=== PATIENT | male | born 1960 | race Caucasian/White ===

== ENCOUNTER 2016-08-03 16:55 | Inpatient (IN) | payer OTHER ==
[2016-08-03] MEDS ORDERED: Zofran 4 MG/2 ML VIAL IV STA (17:14)
[2016-08-03] MEDS ORDERED: TYLENOL 325 MG PO STA (17:14)
--- NOTE | 2016-08-03 17:18 | ERPHSYRPT ---
- History of Present Illness Time Seen by Provider: 08/03/16 17:10 Source: patient Physician History: CC: dizzy Hx: 56 y/o male patient of Dr Baker. He felt poorly today with nausea, dizziness, mild cough, myalgias. No known fever. Had some headache this AM. No chest or abd pain. He has chronic incontinence. Severity: moderate Allergies/Adverse Reactions: No Known Drug Allergies Allergy (Verified 08/03/16 17:25) Home Medications: Pantoprazole Sodium [[id number]] 20 mg PO DAILY 09/23/14 [History] Insulin Aspart [NovoLOG Insulin] 18 unit SQ TID 12/04/15 [History] Insulin Glargine [Lantus Insulin] 60 unit SQ DAILY 12/04/15 [History] Hx Tetanus, Diphtheria Vaccination/Date Given: (unknown) Hx Influenza Vaccination/Date Given: Yes Hx Pneumococcal Vaccination/Date Given: Yes (2014) - Review of Systems Constitutional: Fatigue, Malaise, No Fever, No Chills Eyes: No Symptoms Ears, Nose, & Throat: No Throat Pain Respiratory: Cough Abdominal/Gastrointestinal: Nausea, No Abdominal Pain, No Vomiting Genitourinary Symptoms: Incontinence (chronic), No Dysuria Skin: No Rash Neurological: No Headache All Other Systems: Reviewed and Negative - Past Medical History Pertinent Past Medical History: Yes Neurological History: Peripheral Neuropathy ENT History: Cataracts Cardiac History: Hypertension Respiratory History: No Pertinent History Endocrine Medical History: Diabetes Type II, Other Musculoskeletal History: No Pertinent History GI Medical History: GERD History: No Pertinent History Psycho-Social History: No Pertinent History Male Reproductive Disorders: No Pertinent History Other Medical History: R mid-tarsal amputation 2014 - Past Surgical History Past Surgical History: Yes Neuro Surgical History: No Pertinent History Cardiac: No Pertinent History Respiratory: No Pertinent History Gastrointestinal: Cholecystectomy Genitourinary: No Pertinent History Musculoskeletal: No Pertinent History Male Surgical History: No Pertinent History Other Surgical History: Right toes amputation - Social History Smoking Status: Never smoker Exposure to second hand smoke: No Drug Use: none Patient Lives Alone: No - Nursing Vital Signs Nursing Vital Signs: Initial Vital Signs Temperature 102.6 F Temperature Source Rectal Pulse Rate 106 Respiratory Rate 20 Blood Pressure [] 152/79 Pain Intensity 0 - Physical Exam General Appearance: alert, other (frail elderly appearing man) Eye Exam: PERRL/EOMI Ears, Nose, Throat Exam: moist mucous membranes Neck Exam: normal inspection, supple Respiratory Exam: normal breath sounds Cardiovascular Exam: regular rate/rhythm, tachycardia Gastrointestinal/Abdomen Exam: soft, No tenderness, No distention Extremity Exam: other (post amputation changes foot. Dry skin.) Neurologic Exam: alert, oriented x 3, cooperative, No motor deficits Skin Exam: warm, dry, pale - Course Nursing assessment & vital signs reviewed: Yes - Radiology Exams cxr X-ray Interpretation: Reviewed by me (mild perihilar infiltrates) Ordered Tests: Active Orders 24 hr Category Date Time Status Accucheck STAT Care 08/03/16 17:37 Active Pharmacy Delivery Driver STAT Care 08/03/16 17:39 Active Clean Catch Urine Specimen STAT Care 08/03/16 17:14 Active IV Insertion STAT Care 08/03/16 17:14 Active Orthostatic Vital Signs STAT Care 08/03/16 17:37 Active Pulse Oximetry (ED) STAT Care 08/03/16 17:14 Active Rectal Temperature STAT Care 08/03/16 17:14 Active CHEST 1 VIEW (PORTABLE) Stat Exams 08/03/16 17:15 Taken BLOOD CULTURE Stat Lab 08/03/16 18:59 Received CBC W DIFF Stat Lab 08/03/16 17:22 Completed CMP Stat Lab 08/03/16 17:22 Completed CULTURE,URINE Stat Lab 08/03/16 17:45 Received Lactic Acid Urgent Lab 08/03/16 17:14 Completed Manual Differential NC Stat Lab 08/03/16 17:22 Completed UA W/ MICROSCOPIC Stat Lab 08/03/16 17:43 Completed Medication Summary Discontinued Medications Generic Name Dose Route Start Last Admin Trade Name Matheusq PRN Reason Stop Dose Admin Acetaminophen 650 mg 08/03/16 17:14 08/03/16 17:35 Tylenol 325 Mg PO 08/03/16 17:15 650 mg STAT STA Administration Acetaminophen Confirm 08/03/16 17:34 Tylenol 325 Mg Administered 08/03/16 17:35 Dose 650 mg .ROUTE .STK-MED ONE Sodium Chloride 500 mls @ 999 mls/hr 08/03/16 17:14 08/03/16 17:36 Sodium Chloride 0.9% 1000 Ml IV 08/03/16 17:44 999 mls/hr .Q31M STA Administration Sodium Chloride Confirm 08/03/16 17:34 Sodium Chloride 0.9% 1000 Ml Administered 08/03/16 17:35 Dose 1,000 mls @ ud .ROUTE .[facility] ONE Ondansetron HCl 4 mg 08/03/16 17:14 02 17:35 Zofran 4 Mg/2 Ml Vial IV 08/03/16 17:15 4 mg STAT STA Administration Ondansetron HCl Confirm 08/03/16 17:34 Zofran 4 Mg/2 Ml Vial Administered 08/03/16 17:35 Dose 4 mg .ROUTE .[facility] ONE Lab/Rad Data: Laboratory Result Diagrams 08/03/16 17:22 08/03/16 17:22 Laboratory Results 08/03/16 08/03/16 08/03/16 Range/Units 17:43 17:22 17:22 WBC (4.0-10.5) K/mm3 RBC (4.1-5.6) M/mm3 Hgb (12.5-18.0) gm/dl Hct (42-50) % MCV (78-100) fl MCH (26-32) pg MCHC (32-36) g/dl RDW (11.5-14.0) % Plt Count (150-450) K/mm3 MPV (6-9.5) fl Segmented Neutrophils (36.-66.) % Band Neutrophils (0.0-2.0) % Lymphocytes (Manual) (24-44) % Monocytes (Manual) (0.0-12.0) % Differential Comment Platelet Estimate (NORMAL) Sodium 135 L (136-145) mEq/L Potassium 4.0 (3.5-5.1) mEq/L Chloride 99 (98-107) mEq/L Carbon Dioxide 25.7 (21-32) mEq/L Anion Gap 14.5 (5-15) MEQ/L BUN 22 H (9-20) mg/dL Creatinine 1.09 (0.55-1.30) mg/dl Estimated GFR > 60 ML/MIN Glucose 297 H (70-110) MG/DL Lactic Acid (0.4-2.0) Calcium 9.0 (8.5-10.1) mg/dL Total Bilirubin 0.9 (0.2-1.0) mg/dL AST 23 (15-37) U/L ALT 58 (12-78) U/L Alkaline Phosphatase 81 (46-116) U/L Serum Total Protein 7.9 (6.4-8.2) gm/dL Albumin 4.1 (3.4-5.0) g/dL Ur Collection Type CLEAN CATCH Urine Color YELLOW (YELLOW) Urine Appearance CLEAR (CLEAR) Urine pH 5.0 (5-6) Ur Specific Chapman >=1.030 (1.005-1.025) Urine Protein 100 (Negative) Urine Glucose (UA) >=1000 (NEGATIVE) mg/dL Urine Ketones MODERATE-40 (NEGATIVE) Urine Nitrite NEGATIVE (NEGATIVE) Urine Bilirubin SMALL (NEGATIVE) Urine Urobilinogen 0.2 (0-1) mg/dL Urine WBC (Auto) NEGATIVE (NEGATIVE) Urine RBC (Auto) NEGATIVE (0-5) Rd/ul Urine Microscopic RBC 0-2 (0-2) /HPF Urine Microscopic WBC 0-2 (0-5) /HPF Ur Epithelial Cells MODERATE (FEW) /HPF Urine Bacteria FEW (NEGATIVE) /HPF Urine Mucus MANY (NEGATIVE) /HPF Resp Infection Panel NEGATIVE (Negative) Specimen Received 08/03/16 174 08/03/16 08/03/16 Range/Units 17:22 17:14 WBC 9.6 (4.0-10.5) K/mm3 RBC 5.80 H (4.1-5.6) M/mm3 Hgb 16.7 (12.5-18.0) gm/dl Hct 48.6 (42-50) % MCV 83.8 (78-100) fl MCH 28.7 (26-32) pg MCHC 34.4 (32-36) g/dl RDW 13.6 (11.5-14.0) % Plt Count 183 (150-450) K/mm3 MPV 9.9 H (6-9.5) fl Segmented Neutrophils 95 H (36.-66.) % Band Neutrophils 1 (0.0-2.0) % Lymphocytes (Manual) 3 L (24-44) % Monocytes (Manual) 1 (0.0-12.0) % Differential Comment NORMAL Platelet Estimate NORMAL (NORMAL) Sodium (136-145) mEq/L Potassium (3.5-5.1) mEq/L Chloride (98-107) mEq/L Carbon Dioxide (21-32) mEq/L Anion Gap (5-15) MEQ/L BUN (9-20) mg/dL Creatinine (0.55-1.30) mg/dl Estimated GFR ML/MIN Glucose (70-110) MG/DL Lactic Acid 2.3 H (0.4-2.0) Calcium (8.5-10.1) mg/dL Total Bilirubin (0.2-1.0) mg/dL AST (15-37) U/L ALT (12-78) U/L Alkaline Phosphatase (46-116) U/L Serum Total Protein (6.4-8.2) gm/dL Albumin (3.4-5.0) g/dL Ur Collection Type Urine Color (YELLOW) Urine Appearance (CLEAR) Urine pH (5-6) Ur Specific Chapman (1.005-1.025) Urine Protein (Negative) Urine Glucose (UA) (NEGATIVE) mg/dL Urine Ketones (NEGATIVE) Urine Nitrite (NEGATIVE) Urine Bilirubin (NEGATIVE) Urine Urobilinogen (0-1) mg/dL Urine WBC (Auto) (NEGATIVE) Urine RBC (Auto) (0-5) Rd/ul Urine Microscopic RBC (0-2) /HPF Urine Microscopic WBC (0-5) /HPF Ur Epithelial Cells (FEW) /HPF Urine Bacteria (NEGATIVE) /HPF Urine Mucus (NEGATIVE) /HPF Resp Infection Panel (Negative) Specimen Received - Progress Progress Note: 08/03/16 17:18 Likely influenza by symptoms. 08/03/16 19:07 He is a little better. Too weak to go home. HR some better. Likely viral syndrome with fever. Cultures sent. Called Dr Miller Baker and will place in obs for IVF. Counseled pt/family regarding: lab results, diagnosis, need for follow-up, rad results - Departure Time of Disposition: 19:07 Departure Disposition: Observation Clinical Impression: Type II diabetes mellitus, uncontrolled, Nausea & vomiting, Fever Condition: Fair Critical Care Time: No Referrals: GIAN BAKER [Primary Care Provider] -
[2016-08-03 17:28] LABS: Mean Cell Volume 83.8 fl (78-100); Mean Platelet Volume 9.9 fl (6-9.5); Platelet Count 183 K/mm3 (150-450); Red Cell Distribution Width 13.6 % (11.5-14.0); White Blood Count 9.6 K/mm3 (4.0-10.5)
[2016-08-03] MEDS ORDERED: TYLENOL 325 MG ONE (17:34)
[2016-08-03] MEDS ORDERED: Sodium Chloride 0.9% 1000 ML 1,000 ML ONE (17:34)
[2016-08-03] MEDS ORDERED: Zofran 4 MG/2 ML VIAL ONE (17:34)
[2016-08-03 17:36] LABS: Mean Corpuscular Hemoglobin 28.7 pg (26-32)
[2016-08-03 17:56] LABS: ALBUMIN 4.1 g/dL (3.4-5.0); ALKALINE PHOSPHATASE 81 U/L (46-116); ANION GAP 14.5 MEQ/L (5-15); BILIRUBIN,TOTAL 0.9 mg/dL (0.2-1.0); BLOOD UREA NITROGEN 22 mg/dL (9-20); CHLORIDE 99 mEq/L (98-107); Carbon Dioxide 25.7 mEq/L (21-32); Glucose 297 MG/DL (70-110); SGOT/AST 23 U/L (15-37); SGPT/ALT 58 U/L (12-78); SODIUM 135 mEq/L (136-145); Total Protein 7.9 gm/dL (6.4-8.2)
[2016-08-03 18:22] LABS: BAND 1 % (0.0-2.0); Platelet Estimate NORMAL (NORMAL); Total Cells Counted 100
[2016-08-03 18:28] LABS: Bacteria FEW /HPF (NEGATIVE); COMPLETE URINE MICROSCOPIC? YES; Collection Type CLEAN CATCH; Epithelial Cells MODERATE /HPF (FEW); Mucus MANY /HPF (NEGATIVE); WBC 0-2 /HPF (0-5)
[2016-08-03] MEDS ORDERED: NovoLOG Insulin SQ ONE (19:06)
[2016-08-03] MEDS ORDERED: NovoLOG Insulin ONE (19:13)
--- NOTE | 2016-08-03 20:40 | XRAY ---
Indication: Cough. Comparison: May 13, 2016. Portable chest clear. Heart is not enlarged. Bony thorax intact again with mild degenerative changes. No new/acute findings. Impression: Nonacute chest.
[2016-08-03] MEDS: Sodium Chloride 0.9% W/ 20 mEq KCl/LITER 1,000 ML IV SCH (21:23)
[2016-08-04] MEDS: TYLENOL 325 MG PO PRN (03:21)
[2016-08-04] MEDS: Zofran 4 MG/2 ML VIAL IV PRN (03:21)
[2016-08-04 06:06] LABS: Mean Cell Volume 85.6 fl (78-100); Mean Corpuscular Hemoglobin 28.5 pg (26-32); Mean Platelet Volume 9.8 fl (6-9.5); Platelet Count 160 K/mm3 (150-450); Red Blood Count 5.01 M/mm3 (4.1-5.6); Red Cell Distribution Width 13.6 % (11.5-14.0)
[2016-08-04 06:12] LABS: ANION GAP 11.2 MEQ/L (5-15); BLOOD UREA NITROGEN 20 mg/dL (9-20); CHLORIDE 105 mEq/L (98-107); Carbon Dioxide 26.8 mEq/L (21-32); Glucose 200 MG/DL (70-110); Potassium 4.1 mEq/L (3.5-5.1); SODIUM 139 mEq/L (136-145)
[2016-08-04] MEDS: Sodium Chloride 0.9% W/ 20 mEq KCl/LITER 1,000 ML IV SCH ×2 (06:58→19:26)
--- NOTE | 2016-08-04 09:14 | PCM.SSS ---
History of Present Illness - Chief Complaint Chief Complaint: fever History of Present Illness: is a 56 year old male who presented to the ER yesterday with dizziness, nausea and fever, there was concern for flu but swab was negative. His symptoms have all resolved and he has been afebrile overnight. He is tolerating clear liquids and is complaint-free today. - Review of Systems Constitutional: Fever, Chills Cardiac: No Chest Pain, No Edema, No Syncope Abdominal/Gastrointestinal: Nausea, No Abdominal Pain, No Vomiting, No Diarrhea Neurological: Dizziness, No Focal Weakness, No Headache, No Seizure All Other Systems: Reviewed and Negative Medications & Allergies Home Medications: Home Medication List Pantoprazole Sodium [[id number]] 20 mg PO DAILY 09/23/14 [History Confirmed 05/09] Insulin Aspart [NovoLOG Insulin] 18 unit SQ TIDWMEALS 12/04/15 [History Confirmed 08/03/16] Insulin Glargine [Lantus Insulin] 60 unit SQ HS 12/04/15 [History Confirmed 08/03/16] Allergies/Adverse Reactions: Allergies Allergy/AdvReac Type Severity Reaction Status Date / Time No Known Drug Allergies Allergy Verified 08/03/16 17:25 - Past Medical History Past Medical History: Yes Neurological History: Peripheral Neuropathy ENT History: Cataracts Cardiac History: Hypertension Respiratory History: No Pertinent History Endocrine Medical History: Diabetes Type II, Other Musculoskelatal History: No Pertinent History GI Medical History: GERD History: No Pertinent History Pyscho-Social History: No Pertinent History Male Reproductive Disorders: No Pertinent History Comment: R mid-tarsal amputation 2014 - Past Surgical History Past Surgical History: Yes Neuro Surgical History: No Pertinent History Cardiac History: No Pertinent History Respiratory Surgery: No Pertinent History GI Surgical History: Cholecystectomy Genitourinary Surgical Hx: No Pertinent History Musculskeletal Surgical Hx: No Pertinent History Male Surgical History: No Pertinent History Other Surgical History: Right toes amputation - Social History Smoking Status: Never smoker Exposure to second hand smoke: No Alcohol: None Drug Use: none - Physical Exam Vital Signs: Vital Signs - 24 hr Temp Pulse Resp BP Pulse Ox 08/04/16 07:28 98.4 F 83 18 111/64 94 L 08/04/16 04:00 99 F 96 H 16 126/72 94 L 08/04/16 00:00 98.6 F 88 16 117/70 96 08/03/16 20:20 98.6 F 97 H 16 114/69 92 L 08/03/16 18:54 106 H 20 152/79 08/03/16 18:09 114 H 20 135/89 08/03/16 17:35 102.6 F 08/03/16 17:32 97 08/03/16 17:29 102.6 F 08/03/16 17:00 111 H 20 107/77 General Appearance: no apparent distress, alert Eye Exam: PERRL/EOMI, eyes nml inspection Ears, Nose, Throat Exam: normal ENT inspection, TMs normal, pharynx normal, moist mucous membranes Neck Exam: normal inspection, non-tender, supple, full range of motion Respiratory Exam: normal breath sounds, lungs clear, No respiratory distress Cardiovascular Exam: regular rate/rhythm, normal heart sounds, normal peripheral pulses Gastrointestinal/Abdomen Exam: soft, normal bowel sounds, No tenderness, No mass Extremity Exam: normal inspection, normal range of motion, pelvis stable Skin Exam: normal color, warm, dry, No rash Results - Labs Lab/Micro Results: Accuchecks Date 08/03/16 Accucheck Value: 200 Lab Results-Last 24 Hours 08/04/16 08/04/16 Range/Units 05:10 05:10 WBC 6.0 (4.0-10.5) K/mm3 RBC 5.01 (4.1-5.6) M/mm3 Hgb 14.3 (12.5-18.0) gm/dl Hct 42.9 (42-50) % MCV 85.6 (78-100) fl MCH 28.5 (26-32) pg MCHC 33.3 (32-36) g/dl RDW 13.6 (11.5-14.0) % Plt Count 160 (150-450) K/mm3 MPV 9.8 H (6-9.5) fl Sodium 139 (136-145) mEq/L Potassium 4.1 (3.5-5.1) mEq/L Chloride 105 (98-107) mEq/L Carbon Dioxide 26.8 (21-32) mEq/L Anion Gap 11.2 (5-15) MEQ/L BUN 20 (9-20) mg/dL Creatinine 0.89 (0.55-1.30) mg/dl Estimated GFR > 60 ML/MIN Glucose 200 H (70-110) MG/DL Calcium 7.9 L (8.5-10.1) mg/dL Accuchecks Date 08/03/16 Accucheck Value: 200 Assessment/Plan (1) Fever Current Visit: Yes Status: Acute Code(s): R50.9 - FEVER, UNSPECIFIED (2) Nausea & vomiting Current Visit: Yes Status: Acute Assessment & Plan: symptoms have resolved at this time, appears to have been a viral illness. home today Code(s): R11.2 - NAUSEA WITH VOMITING, UNSPECIFIED (3) Type II diabetes mellitus, uncontrolled Current Visit: Yes Status: Acute Qualifiers: Hospital Summary - Vitals & Intake/Output Vital Signs: Vital Signs Temperature 98.4 F 08/04/16 07:28 Pulse Rate 83 08/04/16 07:28 Respiratory Rate 18 08/04/16 07:28 Blood Pressure 111/64 08/04/16 07:28 O2 Sat by Pulse Oximetry 94 L 08/04/16 07:28 Intake & Output: Intake & Output 08/01/16 08/02/16 08/03/16 08/04/16 11:59 11:59 11:59 11:59 Intake Total 953 Balance 953 - Lab Result Diagrams: 08/04/16 05:10 08/04/16 05:10 Lab Results-Last 24 Hrs: Accuchecks Date 08/03/16 Accucheck Value: 200 Lab Results-Last 24 Hours 08/04/16 08/04/16 Range/Units 05:10 05:10 WBC 6.0 (4.0-10.5) K/mm3 RBC 5.01 (4.1-5.6) M/mm3 Hgb 14.3 (12.5-18.0) gm/dl Hct 42.9 (42-50) % MCV 85.6 (78-100) fl MCH 28.5 (26-32) pg MCHC 33.3 (32-36) g/dl RDW 13.6 (11.5-14.0) % Plt Count 160 (150-450) K/mm3 MPV 9.8 H (6-9.5) fl Sodium 139 (136-145) mEq/L Potassium 4.1 (3.5-5.1) mEq/L Chloride 105 (98-107) mEq/L Carbon Dioxide 26.8 (21-32) mEq/L Anion Gap 11.2 (5-15) MEQ/L BUN 20 (9-20) mg/dL Creatinine 0.89 (0.55-1.30) mg/dl Estimated GFR > 60 ML/MIN Glucose 200 H (70-110) MG/DL Calcium 7.9 L (8.5-10.1) mg/dL Micro Results-Entire Visit: Accuchecks Date 08/03/16 Accucheck Value: 200 - Procedures and Test Procedures and Tests throughout Hospitalization: Therapy Orders & Screens 08/04/16 09:00 PT Screen per Nursing Assess ONCE Comment: Protocol Order Physician Instructions: Greater than 3 points order PT Admission Screenin Reason For Exam: Triggered on Admission Diagnosis: fever Open Wound/Cellutlitis/Pressure Ulcers: Yes: diabetic ulcer, Rt foot Acute Fx/ORIF/Change in wt bearing status: No Severe MUSCULOSKELETAL pain: No ADL Dysfunction: No Acute CVA w/Hemiparesis/Hemiplegia: No Decreased Functional Mobility/Strength: No Sprain/Strain: No Acute Post-op Mobility Dysfunction: No Total Points: 5 08/05/16 09:00 OT Screen per Nursing Assess ONCE Comment: Protocol Order Physician Instructions: Greater than 3 points order OT Admission Screening Reason For Exam: Triggered on Admission Diagnosis: fever Open Wound/Cellutlitis/Pressure Ulcers: Yes: diabetic ulcer, Rt foot Acute Fx/ORIF/Change in wt bearing status: No Severe MUSCULOSKELETAL pain: No ADL Dysfunction: No Acute CVA w/Hemiparesis/Hemiplegia: No Decreased Functional Mobility/Strength: No Sprain/Strain: No Acute Post-op Mobility Dysfunction: No Total Points: 5 - Discharge Disposition: Home, Self-Care Condition: Fair Prescriptions: Continue Pantoprazole Sodium [[id number]] 20 mg PO DAILY Insulin Glargine [Lantus Insulin] 60 unit SQ HS Insulin Aspart [NovoLOG Insulin] 18 unit SQ TIDWMEALS Follow up with: GIAN GREGORIO [Primary Care Provider] - Forms: Patient Portal Information
[2016-08-04 09:36] LABS: Total Cells Counted 100
[2016-08-04 09:37] LABS: Platelet Estimate NORMAL (NORMAL)
[2016-08-04] MEDS ORDERED: PNEUMOVAX 23 IM ONE (10:00)
[2016-08-04] MEDS: ROCEPHIN 1 Gm-D5w 50 ml Bag** 50 ML IV SCH (10:35)
[2016-08-04] MEDS: Protonix 20MG Tablet PO SCH (10:36)
[2016-08-04] MEDS: VANCOCIN 1 GM VIAL*** 1 GM in Sodium Chloride 0.9% 250 ML 250 ML IV SCH ×2 (11:26→21:56)
[2016-08-04] MEDS: NovoLOG Insulin SQ SCH ×2 (13:09→16:40)
[2016-08-04] MEDS: Lantus Insulin SQ SCH (21:57)
[2016-08-05] MEDS: TYLENOL 325 MG PO PRN (00:08)
[2016-08-05] MEDS: Zofran 4 MG/2 ML VIAL IV PRN (00:09)
[2016-08-05] MEDS: Sodium Chloride 0.9% W/ 20 mEq KCl/LITER 1,000 ML IV SCH ×2 (06:57→15:05)
[2016-08-05] MEDS: NovoLOG Insulin SQ SCH ×3 (07:44→16:47)
--- NOTE | 2016-08-05 08:49 | PCM.NOTE ---
Date and Time: 08/05/16 0844 Subjective Assessment: Pt is feeling much better, he did have 3 + Bld cx out of 3 bottles, but one is a gram variable tyo and may be contamination. On CLD and tolerating very well; hungry. - Review of Systems Constitutional: No Fever Respiratory: Cough (mild) Objective Exam General Appearance: no apparent distress Neurologic Exam: alert, oriented x 3, cooperative Skin Exam: normal color, warm, dry Respiratory Exam: normal breath sounds, lungs clear, No crackles/rales, No rhonchi, No wheezing Cardiovascular Exam: regular rate/rhythm, normal heart sounds Extremity Exam: other (RLE s/p remote amputation. distal plantar surface with approx 8 mm defect surrounded by pale firm tissue (approx 2 cm). no erythema. Evidence of small amount of drainage on dressing. nttp) OBJECTIVE DATA Vital Signs: Vital Signs - 24 hr Temp Pulse Resp BP Pulse Ox 08/05/16 07:19 98.5 F 70 18 113/65 96 08/05/16 04:00 98.2 F 78 17 120/73 97 08/05/16 00:00 99.5 F 95 H 16 140/81 96 08/04/16 20:00 97.8 F 92 H 16 125/74 95 08/04/16 16:00 99.5 F 93 H 18 126/67 95 08/04/16 12:00 98.3 F 83 18 141/74 95 Pain Assessment - Last Documented Pain Intensity 4 Pain Scale Used [facility] Intake and Output: Intake & Output 08/02/16 08/03/16 08/04/16 08/05/16 11:59 11:59 11:59 11:59 Intake Total 1493 3685 Balance 1493 3685 Lab Results: Accuchecks Date 08/05/16 Date 08/04/16 Time 07:30 Time 22:00 Accucheck Value: 78 Accucheck Value: 129 Accucheck Value: 101 Accucheck Value: 182 Lab Results-Last 24 Hours 08/04/16 08/04/16 Range/Units 05:10 05:10 WBC 6.0 (4.0-10.5) K/mm3 RBC 5.01 (4.1-5.6) M/mm3 Hgb 14.3 (12.5-18.0) gm/dl Hct 42.9 (42-50) % MCV 85.6 (78-100) fl MCH 28.5 (26-32) pg MCHC 33.3 (32-36) g/dl RDW 13.6 (11.5-14.0) % Plt Count 160 (150-450) K/mm3 MPV 9.8 H (6-9.5) fl Segmented Neutrophils 83 H (36.-66.) % Lymphocytes (Manual) 15 L (24-44) % Monocytes (Manual) 2 (0.0-12.0) % Differential Comment NORMAL Platelet Estimate NORMAL (NORMAL) Hemoglobin A1c 10.3 H (4.5-6.2) Assessment/Plan (1) Bacteremia Current Visit: Yes Status: Acute Assessment & Plan: cultures pending. I spoke with the lab, they will have a result on cx likely tomorrow afternoon. Rona on vanc and rocephin. Code(s): R78.81 - BACTEREMIA (2) Wound, open, foot Current Visit: Yes Status: Chronic Assessment & Plan: as above. PT to dress the foot today. He does see dr. House outpatient. Code(s): S91.309A - UNSPECIFIED OPEN WOUND, UNSPECIFIED FOOT, INITIAL ENCOUNTER (3) Type II diabetes mellitus, uncontrolled Current Visit: Yes Status: Chronic Qualifiers: Diabetes mellitus complication status: with skin complications Diabetes mellitus complication detail: with foot ulcer Assessment & Plan: AYESHA sanchez on CLD! Will continue to monitor as diet advances.
[2016-08-05] MEDS: VANCOCIN 1 GM VIAL*** 1 GM in Sodium Chloride 0.9% 250 ML 250 ML IV SCH ×2 (09:06→22:40)
[2016-08-05] MEDS: ROCEPHIN 1 Gm-D5w 50 ml Bag** 50 ML IV SCH (09:06)
[2016-08-05] MEDS: Protonix 20MG Tablet PO SCH (09:07)
[2016-08-05] MEDS: NovoLOG Insulin SQ PRN (16:48)
[2016-08-05] MEDS: Lantus Insulin SQ SCH (22:40)
[2016-08-06] MEDS: Sodium Chloride 0.9% W/ 20 mEq KCl/LITER 1,000 ML IV SCH ×2 (02:56→15:01)
[2016-08-06] MEDS: NovoLOG Insulin SQ SCH ×3 (07:45→17:02)
--- NOTE | 2016-08-06 08:46 | PCM.NOTE ---
Date and Time: 08/06/16 0844 Subjective Assessment: Pt feeling well, candace po well. His blood cx are positive for E. faecalis and Proteus vulgaris. - Review of Systems Constitutional: No Fever, No Chills Abdominal/Gastrointestinal: No Vomiting OBJECTIVE DATA Vital Signs: Vital Signs - 24 hr Temp Pulse Resp BP Pulse Ox 08/06/16 07:28 98.0 F 69 18 148/75 94 L 08/06/16 04:00 98.5 F 71 18 136/74 92 L 08/05/16 23:26 98.5 F 79 17 136/76 93 L 08/05/16 19:49 98.2 F 76 17 121/69 93 L 08/05/16 15:45 98.3 F 76 18 122/66 94 L 08/05/16 11:47 98.5 F 79 18 132/69 98 Pain Assessment - Last Documented Pain Intensity 4 Pain Scale Used [facility] Intake and Output: Intake & Output 08/03/16 08/04/16 08/05/16 08/06/16 11:59 11:59 11:59 11:59 Intake Total 1493 3685 1926 Balance 1493 3685 1926 Lab Results: Accuchecks Date 08/06/16 Date 08/05/16 Date 08/05/16 Date 08/05/16 Time 07:30 Time 22:00 Time 16:50 Time 11:46 Accucheck Value: 135 Accucheck Value: 136 Accucheck Value: 4 Accucheck Value: 50 Multi-Disciplinary Progress Notes: Multi-Disciplinary Progress Notes 08/05/16 11:26 Physical Therapy Note by Candice Martinez DIABETIC FOOT ULCER WOUND DRESSED AFTER PHYSICIAN OBSERVED WOUND STATUS. PATIENT TO RESUME OUTPT WOUND CARE PROGRAM FRIDAY A.M. TO D/C HOME TOMORROW. Initialized on 08/05/16 11:26 - END OF NOTE Assessment/Plan (1) Bacteremia Current Visit: Yes Status: Acute Assessment & Plan: With two organisms. E faecalis susceptible to vancomycin. Proteus susceptible to rocephin. Advised should stay here for IV abx for 5 d total (2d from today) . Code(s): R78.81 - BACTEREMIA (2) Wound, open, foot Current Visit: Yes Status: Chronic Assessment & Plan: PT dressing, thank you! Code(s): S91.309A - UNSPECIFIED OPEN WOUND, UNSPECIFIED FOOT, INITIAL ENCOUNTER (3) Type II diabetes mellitus, uncontrolled Current Visit: Yes Status: Chronic Qualifiers: Diabetes mellitus complication status: with skin complications Diabetes mellitus complication detail: with foot ulcer
[2016-08-06] MEDS ORDERED: TROUGH DRUG LEVELS IJ ONE (09:30)
[2016-08-06] MEDS: VANCOCIN 1 GM VIAL*** 1 GM in Sodium Chloride 0.9% 250 ML 250 ML IV SCH ×2 (09:31→21:39)
[2016-08-06] MEDS: ROCEPHIN 1 Gm-D5w 50 ml Bag** 50 ML IV SCH (09:31)
[2016-08-06] MEDS: Protonix 20MG Tablet PO SCH (09:31)
[2016-08-06] MEDS: TYLENOL 325 MG PO PRN (10:13)
[2016-08-06] MEDS: Lantus Insulin SQ SCH (21:39)
[2016-08-07] MEDS: Sodium Chloride 0.9% W/ 20 mEq KCl/LITER 1,000 ML IV SCH ×3 (05:32→18:48)
[2016-08-07] MEDS: NovoLOG Insulin SQ SCH ×3 (07:46→16:54)
[2016-08-07] MEDS: ROCEPHIN 1 Gm-D5w 50 ml Bag** 50 ML IV SCH (09:27)
[2016-08-07] MEDS: Protonix 20MG Tablet PO SCH (09:27)
--- NOTE | 2016-08-07 10:21 | PCM.NOTE ---
Date and Time: 08/07/16 1019 Subjective Assessment: Pt without complaints, tolerating po well. Went for a walk today. - Review of Systems Constitutional: No Fever Respiratory: No Cough Objective Exam General Appearance: no apparent distress Neurologic Exam: alert, oriented x 3, cooperative Skin Exam: normal color, warm, dry Respiratory Exam: normal breath sounds, lungs clear Cardiovascular Exam: regular rate/rhythm, normal heart sounds Gastrointestinal/Abdomen Exam: soft, normal bowel sounds, No tenderness Extremity Exam: other (foot wrapped) OBJECTIVE DATA Vital Signs: Vital Signs - 24 hr Temp Pulse Resp BP Pulse Ox 08/07/16 07:25 98.0 F 57 L 20 158/82 95 08/07/16 04:00 97.8 F 63 16 147/75 95 08/07/16 00:00 97.9 F 72 16 161/79 97 08/06/16 20:00 98.0 F 73 16 133/83 95 08/06/16 16:00 97.6 F 67 18 143/79 95 08/06/16 12:00 97.6 F 82 19 123/69 95 Pain Assessment - Last Documented Pain Intensity 0 Pain Scale Used 0-10 Pain Scale,FLACC Intake and Output: Intake & Output 08/04/16 08/05/16 08/06/16 08/07/16 11:59 11:59 11:59 11:59 Intake Total 2079 Balance 2079 Lab Results: Accuchecks Date 08/07/16 Date 08/06/16 Date 08/06/16 Time 07:30 Time 16:30 Time 11:20 Accucheck Value: 142 Accucheck Value: 72 Accucheck Value: 199 Accucheck Value: 102 Lab Results-Last 24 Hours 08/06/16 Range/Units 09:40 Vancomycin Trough 9.2 L (10-20) UG/ML Multi-Disciplinary Progress Notes: Multi-Disciplinary Progress Notes 08/06/16 13:22 Pharmacy Note by Greg Ware Vancomycin trough slightly low at 9.2. Will keep on same dose as this is well above the ABY of 2. Initialized on 08/06/16 13:22 - END OF NOTE Assessment/Plan (1) Bacteremia Current Visit: Yes Status: Acute Assessment & Plan: Plan is to d/c tomorrow on po meds. pt clinically doing great. Code(s): R78.81 - BACTEREMIA (2) Wound, open, foot Current Visit: Yes Status: Chronic Assessment & Plan: PT continues to debride and dress wound, thank you. Outpatient he is seeing Dr. House. Code(s): S91.309A - UNSPECIFIED OPEN WOUND, UNSPECIFIED FOOT, INITIAL ENCOUNTER (3) Type II diabetes mellitus, uncontrolled Current Visit: Yes Status: Chronic Qualifiers: Diabetes mellitus complication status: with skin complications Diabetes mellitus complication detail: with foot ulcer Assessment & Plan: stable.
[2016-08-07] MEDS: VANCOCIN 1 GM VIAL*** 1 GM in Sodium Chloride 0.9% 250 ML 250 ML IV SCH ×2 (10:50→22:25)
[2016-08-07] MEDS: Lantus Insulin SQ SCH (22:29)
[2016-08-07] MEDS: NovoLOG Insulin SQ PRN (22:29)
[2016-08-08 06:06] LABS: BASOPHIL % 0.5 % (0.0-0.4); Eosinophil % 3.2 % (0.00-5.0); Granulocytes % 56.9 % (36.0-66.0); Lymphocytes % 28.2 % (24.0-44.0); Mean Cell Volume 84.5 fl (78-100); Mean Platelet Volume 9.3 fl (6-9.5); Monocytes % 11.2 % (0.0-12.0); Platelet Count 201 K/mm3 (150-450); Red Blood Count 4.65 M/mm3 (4.1-5.6); Red Cell Distribution Width 13.7 % (11.5-14.0); White Blood Count 4.1 K/mm3 (4.0-10.5)
[2016-08-08 06:14] LABS: ANION GAP 11.3 MEQ/L (5-15); BLOOD UREA NITROGEN 9 mg/dL (9-20); CHLORIDE 106 mEq/L (98-107); Carbon Dioxide 26.7 mEq/L (21-32); Glucose 169 MG/DL (70-110); Potassium 4.4 mEq/L (3.5-5.1); SODIUM 140 mEq/L (136-145)
[2016-08-08 07:31] VITALS: BP 155/76; PULSE 66; O2SAT 96
[2016-08-08] MEDS: NovoLOG Insulin SQ SCH (07:41)
[2016-08-08] MEDS: ROCEPHIN 1 Gm-D5w 50 ml Bag** 50 ML IV SCH (07:41)
[2016-08-08] MEDS: VANCOCIN 1 GM VIAL*** 1 GM in Sodium Chloride 0.9% 250 ML 250 ML IV SCH (08:31)
[2016-08-08] MEDS: Protonix 20MG Tablet PO SCH (08:32)
--- NOTE | 2016-08-08 08:32 | PCM.DS ---
Discharge Summary Date of Admission: 08/06/16 07:48 Admitting Physician: DANIEL RANGEL Primary Care Provider: GIAN GREGORIO Allergies Allergies No Known Drug Allergies Allergy (Verified 08/03/16 17:25) Hospital Summary - Hospital Course Hospital Course: Has been having low BS into the 60s at times after being covered for meals with 18 units. He told the nurse this does sometimes happen to him at home as well. Otherwise no complaints, candace po well. Up and walking ok. - Vitals & Intake/Output Vital Signs: Vital Signs Temperature 98.7 F 08/08/16 07:31 Pulse Rate 66 08/08/16 07:31 Respiratory Rate 19 08/08/16 07:31 Blood Pressure 155/76 08/08/16 07:31 O2 Sat by Pulse Oximetry 96 08/08/16 07:31 Intake & Output: Intake & Output 08/05/16 08/06/16 08/07/16 08/08/16 11:59 11:59 11:59 11:59 Intake Total 2080 2811 Balance 2080 2811 - Lab Result Diagrams: 08/08/16 05:20 08/08/16 05:20 Lab Results-Last 24 Hrs: Accuchecks Date 08/07/15 Date 08/07/16 Date 08/07/16 Time 22:00 Time 16:30 Time 11:30 Accucheck Value: 211 Accucheck Value: 64 Lab Results-Last 24 Hours 08/08/16 08/08/16 Range/Units 05:20 05:20 WBC 4.1 (4.0-10.5) K/mm3 RBC 4.65 (4.1-5.6) M/mm3 Hgb 13.0 (12.5-18.0) gm/dl Hct 39.3 L (42-50) % MCV 84.5 (78-100) fl MCH 28.0 (26-32) pg MCHC 33.1 (32-36) g/dl RDW 13.7 (11.5-14.0) % Plt Count 201 (150-450) K/mm3 MPV 9.3 (6-9.5) fl Gran % 56.9 (36.0-66.0) % Lymphocytes % 28.2 (24.0-44.0) % Monocytes % 11.2 (0.0-12.0) % Eosinophils % 3.2 (0.00-5.0) % Basophils % 0.5 (0.0-0.4) % Basophils # 0.02 (0-0.4) Sodium 140 (136-145) mEq/L Potassium 4.4 (3.5-5.1) mEq/L Chloride 106 (98-107) mEq/L Carbon Dioxide 26.7 (21-32) mEq/L Anion Gap 11.3 (5-15) MEQ/L BUN 9 (9-20) mg/dL Creatinine 0.73 (0.55-1.30) mg/dl Estimated GFR > 60 ML/MIN Glucose 169 H (70-110) MG/DL Calcium 8.4 L (8.5-10.1) mg/dL Micro Results-Entire Visit: Accuchecks Date 08/07/15 Date 08/07/16 Date 08/07/16 Time 22:00 Time 16:30 Time 11:30 Accucheck Value: 211 Accucheck Value: 64 Discharge Exam General Appearance: no apparent distress Neurologic Exam: alert, oriented x 3, cooperative Skin Exam: normal color, warm, dry Eye Exam: eyes nml inspection Respiratory Exam: normal breath sounds, No crackles/rales, No rhonchi, No wheezing Cardiovascular Exam: regular rate/rhythm, normal heart sounds Extremity Exam: other (no pretibial edema bilat. R foot s/p remote amputation) Final Diagnosis/Problem List - Final Discharge Diagnosis/Problem (1) Bacteremia Current Visit: Yes Status: Acute Assessment & Plan: Has been treated for 5d with IV vancomycin and rocephin. Home on 3d of bactrim. He has felt well since his second hospital day. (2) Wound, open, foot Current Visit: Yes Status: Chronic Assessment & Plan: resume tx with PT and Dr. House. Diabetic foot wound. (3) Type II diabetes mellitus, uncontrolled Current Visit: Yes Status: Chronic Assessment & Plan: with some low BS after being covered for meals; decrease mealtime insulin to 10 units. - Discharge Disposition: Home, Self-Care Condition: Stable Prescriptions: New Sulfamethoxazole/Trimethoprim [Bactrim Ds Tablet] 1 each PO BID #4 tablet Continue Pantoprazole Sodium [[id number]] 20 mg PO DAILY Insulin Glargine [Lantus Insulin] 60 unit SQ HS Changed Insulin Aspart [NovoLOG Insulin] 10 unit SQ TIDWMEALS #1 unit Follow up with: GIAN GREGORIO [Primary Care Provider] - Forms: Patient Portal Information
== END 2016-08-08 10:40 | disposition home or self-care (01) | DRG 872 ==
LOC: ED 16:55 → MED SURG 20:25 → OBSVTOIN 08-06 07:48
PROVIDERS: ADMIT Family Medicine; ATTEND Family Medicine
DX: R78.81 Bacteremia (principal); S91.301A Unspecified open wound, right foot, initial encounter; E11.65 Type 2 diabetes mellitus with hyperglycemia; E11.621 Type 2 diabetes mellitus with foot ulcer; Z89.421 Acquired absence of other right toe(s); I10 Essential (primary) hypertension; G62.9 Polyneuropathy, unspecified; K21.9 Gastro-esophageal reflux disease without esophagitis
CPT/HCPCS: 36000; 36415; 71010; 80048; 80053; 80202; 81000; 82962; 83036; 83605; 85025; 87040; 87077; 87086; 87186; 87631; 90732; 93041; 96360; 96374; 99284; 99285; G0378; J0696; J2405; J3370

== ENCOUNTER 2017-02-20 10:40 | Inpatient (IN) | payer MEDICARE ==
[2017-02-20] MEDS ORDERED: Adacel Vial IM ONE ×2 (11:11→11:48)
[2017-02-20] MEDS ORDERED: PHARMACY DOSING REQUEST IJ ONE (11:23)
[2017-02-20] MEDS ORDERED: Zosyn 3.375GM/100 Ml D5W 3.375 GM/100 ML IVPB IV STA (11:23)
--- NOTE | 2017-02-20 11:23 | ERPHSYRPT ---
- History of Present Illness Time Seen by Provider: 02/20/17 11:01 Source: patient Patient Subjective Stated Complaint: pt states he has sore to left second and third toe have sores and he states infection is getting worse, pt states he is unable to due PT due to insurance issues Triage Nursing Assessment: pt has sore on top of second toe scabed over with no drainagie and third toe is red,draining with black skin to bottom of toe, redenss to foot, fowl smelling no fever Physician History: CC: toe infection Hx: 56 y/o diabetic male patient of Dr Baker. 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 He now has left foot infection. He was in PT for wound care but quit going a week ago due to insurance changes. He now has worsened redness in left foot, no pain, foul odor form the left 3rd toe. It has worsened. He has malaise. No fever or chills. No other complaints. Unsure last tetanus vaccine. Has seen Dr Christianson in past for right foot. Has seen Dr House in past for left foot. Severity of Pain-Max: severe Severity of Pain-Current: severe Lower Extremities Pain: foot: left Allergies/Adverse Reactions: No Known Drug Allergies Allergy (Verified 02/20/17 11:06) Home Medications: Pantoprazole Sodium [[id number]] 20 mg PO DAILY 09/23/14 [History] Hx Tetanus, Diphtheria Vaccination/Date Given: No Hx Influenza Vaccination/Date Given: Yes Hx Pneumococcal Vaccination/Date Given: Yes Immunizations Up to Date: Yes - Review of Systems Constitutional: Malaise, No Fever, No Chills Eyes: No Symptoms Ears, Nose, & Throat: No Symptoms Respiratory: No Cough, No Dyspnea Cardiac: No Chest Pain Abdominal/Gastrointestinal: No Abdominal Pain, No Nausea, No Vomiting Genitourinary Symptoms: No Symptoms Musculoskeletal: No Joint Pain Skin: Skin Lesions Neurological: Parasthesia (neuropathy), No Headache All Other Systems: Reviewed and Negative - Past Medical History Pertinent Past Medical History: Yes Neurological History: Peripheral Neuropathy ENT History: Cataracts Cardiac History: Hypertension, Peripheral Vascular Disease Respiratory History: No Pertinent History Endocrine Medical History: Diabetes Type II Musculoskeletal History: Other GI Medical History: GERD History: No Pertinent History Psycho-Social History: No Pertinent History Male Reproductive Disorders: No Pertinent History Other Medical History: OSTEOMYELITIS - Past Surgical History Past Surgical History: Yes Neuro Surgical History: No Pertinent History Cardiac: No Pertinent History Respiratory: No Pertinent History Gastrointestinal: Cholecystectomy Genitourinary: No Pertinent History Musculoskeletal: No Pertinent History Male Surgical History: No Pertinent History Other Surgical History: Right toes amputation - Social History Smoking Status: Never smoker Exposure to second hand smoke: No Drug Use: none Patient Lives Alone: No - Nursing Vital Signs Nursing Vital Signs: Initial Vital Signs Temperature 98.0 F 02/20/17 10:58 Pulse Rate 96 H 02/20/17 10:58 Respiratory Rate 16 02/20/17 10:58 Blood Pressure 149/89 02/20/17 10:58 O2 Sat by Pulse Oximetry 94 L 02/20/17 10:58 Pain Scale Pain Intensity 0 - Physical Exam General Appearance: alert Eyes, Ears, Nose, Throat Exam: moist mucous membranes Neck Exam: normal inspection, supple Cardiovascular/Respiratory Exam: chest non-tender, normal breath sounds, regular rate/rhythm Gastrointestinal/Abdominal Exam: non-tender, soft Back Exam: normal inspection Neuro/Tendon Exam: normal motor functions Mental Status Exam: alert, oriented x 3, cooperative Skin Exam: warm, dry SpO2 Interpretation: normal SpO2: 94 Oxygen Delivery: Room Air Comments: left foot has 3rd toe swelling, black eschar, dry drng, foul odor with redness extending proximally up the foot - Course Nursing assessment & vital signs reviewed: Yes - Radiology Exams left foot X-ray Interpretation: Teleradiologist Report (STS 3rd toe without apparent bony destruction or air in soft tissues) Ordered Tests: Active Orders 24 hr Category Date Time Status IV Insertion STAT Care 02/20/17 11:10 Active NPO (ED) STAT Care 02/20/17 11:10 Active Wound Care STAT Care 02/20/17 11:11 Active FOOT (MINIMUM 3 VIEWS) Stat Exams 02/20/17 11:19 Completed BLOOD CULTURE Stat Lab 02/20/17 11:11 Ordered CBC W DIFF Stat Lab 02/20/17 11:25 Completed CMP Stat Lab 02/20/17 11:10 Completed Erythrocyte Sedimentation Rate Stat Lab 02/20/17 11:25 Completed Lactic Acid Stat Lab 02/20/17 11:20 Completed PROTIME WITH INR Stat Lab 02/20/17 11:25 Completed PTT Stat Lab 02/20/17 11:25 Completed Medication Summary Generic Name Dose Route Start Last Admin Trade Name Freq PRN Reason Stop Dose Admin Vancomycin HCl 250 mls @ 167 mls/hr 02/20/17 12:15 Vancomycin 1gm/ Ns 250ml IV 02/20/17 13:45 1215 [place] Discontinued Medications Generic Name Dose Route Start Last Admin Trade Name Freq PRN Reason Stop Dose Admin Diphtheria/Tetanus/Acell Pertussis 0.5 ml 02/20/17 11:11 02/20/17 11:46 Adacel Vial IM 02/20/17 11:12 0.5 ml .ONCE ONE Administration Diphtheria/Tetanus/Acell Pertussis Confirm 02/20/17 11:48 Adacel Vial Administered 02/20/17 11:49 Dose 0.5 ml IM .STK-MED ONE Piperacillin Sod/Tazobactam Sod 3.375 gm in 100 mls @ 200 mls/hr 02/20/17 11: 23 02/20/17 11:46 Zosyn 3.375gm/100 Ml D5w IV 02/20/17 11:52 200 mls/hr STAT STA Administration Piperacillin Sod/Tazobactam Sod Confirm 02/20/17 11:45 Zosyn 3.375gm/100 Ml D5w Administered 02/20/17 11:46 Dose 3.375 gm in 100 mls @ ud IV .STK-MED ONE Non-Formulary Medication 1 each 02/20/17 11:23 Pharmacy Dosing Request IJ 02/20/17 11:24 STAT ONE Lab/Rad Data: Laboratory Result Diagrams 02/20/17 11:25 02/20/17 11:10 Laboratory Results 02/20/17 02/20/17 02/20/17 Range/Units 11:25 11:25 11:25 WBC 7.5 (4.0-10.5) K/mm3 RBC 5.51 (4.1-5.6) M/mm3 Hgb 15.6 (12.5-18.0) gm/dl Hct 47.1 (42-50) % MCV 85.5 (78-100) fl MCH 28.3 (26-32) pg MCHC 33.1 (32-36) g/dl RDW 14.0 (11.5-14.0) % Plt Count 245 (150-450) K/mm3 MPV 8.9 (6-9.5) fl Gran % 63.9 (36.0-66.0) % Lymphocytes % 24.0 (24.0-44.0) % Monocytes % 10.2 (0.0-12.0) % Eosinophils % 1.6 (0.00-5.0) % Basophils % 0.3 (0.0-0.4) % Basophils # 0.02 (0-0.4) ESR 28 H (0-15) mm/hr INR 1.21 (0.8-3.0) APTT 38.6 H (24.1-36.1) SECONDS Sodium (136-145) mEq/L Potassium (3.5-5.1) mEq/L Chloride (98-107) mEq/L Carbon Dioxide (21-32) mEq/L Anion Gap (5-15) MEQ/L BUN (9-20) mg/dL Creatinine (0.55-1.30) mg/dl Estimated GFR ML/MIN Glucose (70-110) MG/DL Lactic Acid (0.4-2.0) Calcium (8.5-10.1) mg/dL Total Bilirubin (0.2-1.0) mg/dL AST (15-37) U/L ALT (12-78) U/L Alkaline Phosphatase (46-116) U/L Serum Total Protein (6.4-8.2) gm/dL Albumin (3.4-5.0) g/dL 02/20/17 02/20/17 Range/Units 11:20 11:10 WBC (4.0-10.5) K/mm3 RBC (4.1-5.6) M/mm3 Hgb (12.5-18.0) gm/dl Hct (42-50) % MCV (78-100) fl MCH (26-32) pg MCHC (32-36) g/dl RDW (11.5-14.0) % Plt Count (150-450) K/mm3 MPV (6-9.5) fl Gran % (36.0-66.0) % Lymphocytes % (24.0-44.0) % Monocytes % (0.0-12.0) % Eosinophils % (0.00-5.0) % Basophils % (0.0-0.4) % Basophils # (0-0.4) ESR (0-15) mm/hr INR (0.8-3.0) APTT (24.1-36.1) SECONDS Sodium 140 (136-145) mEq/L Potassium 4.0 (3.5-5.1) mEq/L Chloride 102 (98-107) mEq/L Carbon Dioxide 30.1 (21-32) mEq/L Anion Gap 12.0 (5-15) MEQ/L BUN 22 H (9-20) mg/dL Creatinine 1.12 (0.55-1.30) mg/dl Estimated GFR > 60 ML/MIN Glucose 124 H (70-110) MG/DL Lactic Acid 1.6 (0.4-2.0) Calcium 9.2 (8.5-10.1) mg/dL Total Bilirubin 0.50 (0.2-1.0) mg/dL AST 29 (15-37) U/L ALT 31 (12-78) U/L Alkaline Phosphatase 74 (46-116) U/L Serum Total Protein 8.4 H (6.4-8.2) gm/dL Albumin 3.4 (3.4-5.0) g/dL - Progress Progress Note: 02/20/17 11:23 Spoke with pharmacy. Will use zosyn and vancomycin. 02/20/17 11:[address] Baker. She advised admit and consult Dr Christianson. 02/20/17 12:08 Pt stable. Will admit. Counseled pt/family regarding: lab results, diagnosis, need for follow-up, rad results - Departure Time of Disposition: 12:08 Departure Disposition: In-patient Admission Clinical Impression: Diabetic foot infection, dry gangrene left 3rd toe Condition: Fair Critical Care Time: No Referrals: GIAN BAKER [Primary Care Provider] -
[2017-02-20 11:34] LABS: BASOPHIL % 0.3 % (0.0-0.4); Eosinophil % 1.6 % (0.00-5.0); Granulocytes % 63.9 % (36.0-66.0); Mean Cell Volume 85.5 fl (78-100); Mean Corpuscular Hemoglobin 28.3 pg (26-32); Mean Platelet Volume 8.9 fl (6-9.5); Monocytes % 10.2 % (0.0-12.0); Platelet Count 245 K/mm3 (150-450); Red Blood Count 5.51 M/mm3 (4.1-5.6); White Blood Count 7.5 K/mm3 (4.0-10.5)
[2017-02-20] MEDS ORDERED: Zosyn 3.375GM/100 Ml D5W 3.375 GM/100 ML IVPB IV ONE (11:45)
[2017-02-20 11:51] LABS: INR 1.21 (0.8-3.0); PROTIME 13.7 SECONDS (8.83-12.87)
[2017-02-20 11:54] LABS: PTT 38.6 SECONDS (24.1-36.1)
[2017-02-20 12:00] LABS: ALBUMIN 3.4 g/dL (3.4-5.0); ALKALINE PHOSPHATASE 74 U/L (46-116); BLOOD UREA NITROGEN 22 mg/dL (9-20); CHLORIDE 102 mEq/L (98-107); Carbon Dioxide 30.1 mEq/L (21-32); Glucose 124 MG/DL (70-110); SGOT/AST 29 U/L (15-37); SGPT/ALT 31 U/L (12-78); SODIUM 140 mEq/L (136-145); Total Protein 8.4 gm/dL (6.4-8.2)
--- NOTE | 2017-02-20 12:00 | XRAY ---
Indication: Third toe swelling. History of diabetes. Comparison: None 3 nonweightbearing views of the left foot demonstrates small heel spurs, mid tarsal degenerative changes, and 3rd toe soft tissue swelling without underlying acute fracture, osseous destructive process, or subcutaneous air. Remaining left foot unremarkable.
[2017-02-20] MEDS ORDERED: Vancomycin 1GM/ Ns 250ML*** 250 ML IV SCH (12:15)
[2017-02-20] MEDS ORDERED: PHARMACY DOSING REQUIRED: VANCOMYCIN IV ONE (12:41)
[2017-02-20] MEDS ORDERED: NovoLOG Insulin SQ PRN (12:41)
[2017-02-20] MEDS: Sodium Chloride 0.9% 1000 ML 1,000 ML IV SCH (13:13)
[2017-02-20] MEDS ORDERED: MEDICATION INTERVENTION MC PRN (17:18)
[2017-02-20] MEDS: Zestril 5 MG PO SCH (17:36)
[2017-02-20] MEDS: Zosyn 3.375GM/100 Ml D5W 3.375 GM/100 ML IVPB IV SCH (17:36)
[2017-02-20] MEDS: NovoLOG Insulin SQ SCH (17:36)
[2017-02-20] MEDS: Protonix 20MG Tablet PO SCH (17:36)
[2017-02-20] MEDS: Lantus Insulin SQ SCH (21:15)
[2017-02-20] MEDS: ZOCOR 20MG PO SCH (21:15)
[2017-02-20] MEDS ORDERED: Norco 10/325 MG Tablet PO PRN (21:43)
[2017-02-20] MEDS ORDERED: TYLENOL 325 MG PO PRN (21:43)
[2017-02-20] MEDS ORDERED: MORPHINE SULFATE 10 MG/ML IV PRN (21:44)
[2017-02-20] MEDS ORDERED: Zofran 4 MG/2 ML VIAL IV PRN (21:44)
[2017-02-20] MEDS ORDERED: NON-FORMULARY ITEM (Pravastatin Sodium [Pravastatin Sodium] 40 MG) PO SCH (22:00)
[2017-02-20] MEDS: VANCOCIN 1 GM VIAL*** 1 GM in Sodium Chloride 0.9% 250 ML 250 ML IV SCH (23:13)
[2017-02-21] MEDS: Zosyn 3.375GM/100 Ml D5W 3.375 GM/100 ML IVPB IV SCH ×4 (01:12→18:01)
[2017-02-21] MEDS: Sodium Chloride 0.9% 1000 ML 1,000 ML IV SCH ×2 (04:13→20:09)
[2017-02-21 05:58] LABS: Mean Cell Volume 86.5 fl (78-100); Mean Corpuscular Hemoglobin 28.2 pg (26-32); Mean Platelet Volume 9.1 fl (6-9.5); Platelet Count 209 K/mm3 (150-450); Red Blood Count 4.83 M/mm3 (4.1-5.6); White Blood Count 4.6 K/mm3 (4.0-10.5)
[2017-02-21 06:32] LABS: ANION GAP 10.8 MEQ/L (5-15); BLOOD UREA NITROGEN 15 mg/dL (9-20); CHLORIDE 108 mEq/L (98-107); Carbon Dioxide 27.6 mEq/L (21-32); Glucose 95 MG/DL (70-110); Potassium 3.5 mEq/L (3.5-5.1); SODIUM 143 mEq/L (136-145)
--- NOTE | 2017-02-21 07:12 | PCM.HP ---
History of Present Illness - Chief Complaint Chief Complaint: diabetic foot infection left foot; dry gangrene left 3rd toe History of Present Illness: is a 56 year old male pt, diabetic on insulin, who noticed a worsening of a wound on his L 3rd toe 2d ago. He noticed erythema, some blackening, and a smell. Yesterday he called my office and I advised him to go to the ER. He did come in and was started on IV vancomycin and zosyn. Dr. Christianson was consulted. He has been NPO since midnight. He is s/p remote amputation of partial R foot. His blood sugars are traditionally not well controlled, recently he has only had one in the 300s he states otherwise theyve been "ok" - does not have a log with him. - Review of Systems Respiratory: Cough (somewhat productive) Cardiac: Chest Pain (with cough) Abdominal/Gastrointestinal: Nausea, Vomiting, Diarrhea, Appetite Changes Genitourinary Symptoms: Other (dark urine) All Other Systems: Reviewed and Negative Medications & Allergies Home Medications: Home Medication List Pantoprazole Sodium [[id number]] 20 mg PO DAILY 09/23/14 [History Confirmed ] Insulin Aspart [NovoLOG Insulin] 18 unit SQ TIDWMEALS 02/20/17 [History Confirmed 02/20/17] Insulin Degludec [Tresiba Flextouch U-100] 40 unit SQ BID 02/20/17 [History Confirmed 02/20/17] Liraglutide [Victoza 2-Edd] 1.2 mg SQ QAM 02/20/17 [History Confirmed 02/20/17] Lisinopril 5 mg [Zestril 5 MG] 5 mg PO DAILY 02/20/17 [History Confirmed 02/20/17] Pravastatin Sodium 40 mg PO HS 02/20/17 [History Confirmed 02/20/17] Allergies/Adverse Reactions: Allergies Allergy/AdvReac Type Severity Reaction Status Date / Time No Known Drug Allergies Allergy Verified 02/20/17 11:06 - Past Medical History Past Medical History: Yes Neurological History: Peripheral Neuropathy ENT History: Cataracts Cardiac History: Hypertension, Peripheral Vascular Disease Respiratory History: No Pertinent History Endocrine Medical History: Diabetes Type II Musculoskelatal History: Other GI Medical History: GERD History: No Pertinent History Pyscho-Social History: No Pertinent History Male Reproductive Disorders: No Pertinent History Comment: OSTEOMYELITIS - Past Surgical History Past Surgical History: Yes Neuro Surgical History: No Pertinent History Cardiac History: No Pertinent History Respiratory Surgery: No Pertinent History GI Surgical History: Cholecystectomy Genitourinary Surgical Hx: No Pertinent History Musculskeletal Surgical Hx: No Pertinent History Male Surgical History: No Pertinent History Other Surgical History: Right toes amputation - Social History Smoking Status: Never smoker Exposure to second hand smoke: No Alcohol: None Drug Use: none - Physical Exam Vital Signs: Vital Signs - 24 hr Temp Pulse Resp BP Pulse Ox 02/21/17 03:56 98.3 F 80 17 104/67 92 L 02/20/17 23:59 98.2 F 82 17 113/66 91 L 02/20/17 20:00 97.9 F 97 H 17 135/79 93 L 02/20/17 16:41 97.7 F 80 19 131/70 94 L 02/20/17 14:31 98.0 F 83 17 143/75 93 L 02/20/17 12:09 94 L 02/20/17 11:59 86 16 124/87 97 02/20/17 10:58 98.0 F 96 H 16 149/89 94 L General Appearance: no apparent distress, alert Neurologic Exam: oriented x 3, cooperative Eye Exam: eyes nml inspection Ears, Nose, Throat Exam: moist mucous membranes Neck Exam: normal inspection, non-tender, No lymphadenopathy Respiratory Exam: normal breath sounds, lungs clear, No crackles/rales, No rhonchi, No wheezing Cardiovascular Exam: regular rate/rhythm, normal heart sounds, No murmur Gastrointestinal/Abdomen Exam: soft, normal bowel sounds, No tenderness, No distention, No mass, No guarding, No rebound Back Exam: normal inspection Extremity Exam: other (L foot - 3rd digit is wrapped, there is erythema extending proximally about 1/4 the distance from toes to ankle, nttp, no edema, no induration/exudate. otherwise no lesions. R foot s/p remote amputation.), No pedal edema, No swelling Results - Labs Lab/Micro Results: Accuchecks Date 02/21/17 Time 01:00 Accucheck Value: 68 Accucheck Value: 99 Lab Results-Last 24 Hours 09/01/17 09/01/17 Range/Units 05:25 05:25 WBC 4.6 (4.0-10.5) K/mm3 RBC 4.83 (4.1-5.6) M/mm3 Hgb 13.6 (12.5-18.0) gm/dl Hct 41.8 L (42-50) % MCV 86.5 (78-100) fl MCH 28.2 (26-32) pg MCHC 32.5 (32-36) g/dl RDW 14.0 (11.5-14.0) % Plt Count 209 (150-450) K/mm3 MPV 9.1 (6-9.5) fl Sodium 143 (136-145) mEq/L Potassium 3.5 (3.5-5.1) mEq/L Chloride 108 H (98-107) mEq/L Carbon Dioxide 27.6 (21-32) mEq/L Anion Gap 10.8 (5-15) MEQ/L BUN 15 (9-20) mg/dL Creatinine 0.90 (0.55-1.30) mg/dl Estimated GFR > 60 ML/MIN Glucose 95 (70-110) MG/DL Calcium 8.1 L (8.5-10.1) mg/dL Accuchecks Date 02/21/17 Time 01:00 Accucheck Value: 68 Accucheck Value: 99 Assessment/Plan (1) Diabetic foot infection Current Visit: Yes Status: Acute Assessment & Plan: On IV vancomycin and zosyn. He thinks the erythema has improved since admission last night. Code(s): E11.69 - TYPE 2 DIABETES MELLITUS WITH OTHER SPECIFIED COMPLICATION; L08.9 - LOCAL INFECTION OF THE SKIN AND SUBCUTANEOUS TISSUE, UNSP (2) Dry gangrene Current Visit: Yes Status: Acute Assessment & Plan: Dr. Christianson has been consulted for today, thank you! Code(s): I96 - GANGRENE, NOT ELSEWHERE CLASSIFIED (3) Type II diabetes mellitus, uncontrolled Current Visit: No Status: Chronic Qualifiers: Diabetes mellitus complication status: with circulatory complication Diabetes mellitus complication detail: with peripheral angiopathy with gangrene Diabetes mellitus skilled nursing insulin use: with skilled nursing use Qualified Code( s): E11.52 - Type 2 diabetes mellitus with diabetic peripheral angiopathy with gangrene; E11.65 - Type 2 diabetes mellitus with hyperglycemia; Z79.4 - [facility] (current) use of insulin Assessment & Plan: Will continue accuchecks here, with Lantus and regular insulin.
[2017-02-21 07:16] LABS: BAND 2 % (0.0-2.0); Basophil 2 % (0.0-1.0); Eosinophil 5 % (0.00-3.0); Platelet Estimate NORMAL (NORMAL); Total Cells Counted 100
[2017-02-21] MEDS ORDERED: Naropin 0.5% 30 ML VIAL IJ ONE (08:00)
[2017-02-21] MEDS ORDERED: PHENYLEPHRINE HCL IV ONE (08:00)
[2017-02-21] MEDS ORDERED: SUBLIMAZE 100 MCG/2 ML IV ONE (08:00)
[2017-02-21] MEDS ORDERED: Versed 2 MG/2 ML Injection IV ONE (08:00)
[2017-02-21] MEDS ORDERED: DIPRIVAN 200 MG/20 ML IV ONE (08:00)
[2017-02-21] MEDS ORDERED: PROTONIX 40 MG IV IV ONE (08:00)
[2017-02-21] MEDS: NovoLOG Insulin SQ SCH ×3 (08:19→16:49)
[2017-02-21] MEDS ORDERED: CEFAZOLIN 2 GM-D5W BAG** 2 GM/50 ML ML IV SCH (08:30)
[2017-02-21] MEDS ORDERED: Pepcid 20 MG VIAL IV SCH (08:30)
[2017-02-21] MEDS ORDERED: Lactated Ringers 1,000 ML IV SCH (08:30)
[2017-02-21] MEDS: Zestril 5 MG PO SCH (09:21)
[2017-02-21] MEDS: Protonix 20MG Tablet PO SCH (09:23)
[2017-02-21] MEDS: VANCOCIN 1 GM VIAL*** 1 GM in Sodium Chloride 0.9% 250 ML 250 ML IV SCH ×2 (09:24→22:29)
[2017-02-21] MEDS ORDERED: NON-FORMULARY ITEM (Liraglutide [Victoza 2-Pak] 1.2 MG) SQ SCH (10:00)
--- NOTE | 2017-02-21 12:36 | OP ---
SURGERY DATE/TIME: 02/21/2017 1103 PREOPERATIVE DIAGNOSIS: Left forefoot gangrene. POSTOPERATIVE DIAGNOSIS: Left forefoot gangrene. PROCEDURES: 1) Left mid foot transmetatarsal amputation. 2) X-ray per surgeon for identification of transmetatarsal osteotomy plane. 3) Short leg cast. SURGEON: Davion Christianson D.O. LOOSE HAND PACKER: None. ANESTHESIA: General IV sedation with popliteal nerve block per CUSTODIAN SUPERVISOR. ESTIMATED BLOOD LOSS: 100. DESCRIPTION OF PROCEDURE: The patient is taken to the operative suite and placed in supine position, given femoral and adductor canal blocks. IV sedation ensued. The patient was prepped to the left foot and then a transmetatarsal amputation was done for the third toe necrosis, this was then incision made across the forefoot in a modified fish mouth-type format and then soft tissues were retracted back to the bone osteotomy site, this was performed over the one, two, three, four, five bony surfaces and then this area was packed and irrigated. A plantar based flap was brought up to the level of the dorsal aspect flap. All neurovascular areas including the dorsalis pedis was controlled with bovie cautery with small suture closure with nonabsorbable suture. Trunnion retraction was obviated and dismissed due to tendon close over and once the wound was finished and the x-rays had been taken to show the cleavage plane on the osteotomy site. Simple dressings applied. Short leg cast. The patient was sent on to recovery in satisfactory condition. Good healthy closure of the cleavage plane.
[2017-02-21] MEDS: Lantus Insulin SQ SCH ×3 (13:58→23:02)
--- NOTE | 2017-02-21 15:43 | XRAY ---
26.7 seconds fluoroscopy time in surgery for left foot amputation.
[2017-02-21] MEDS: ZOCOR 20MG PO SCH (22:30)
[2017-02-22] MEDS: Zosyn 3.375GM/100 Ml D5W 3.375 GM/100 ML IVPB IV SCH ×3 (00:35→12:59)
[2017-02-22] MEDS: NovoLOG Insulin SQ SCH ×2 (07:50→12:59)
[2017-02-22] MEDS: Sodium Chloride 0.9% 1000 ML 1,000 ML IV SCH (07:52)
[2017-02-22] MEDS ORDERED: TROUGH DRUG LEVELS IJ ONE ×2 (09:30)
[2017-02-22] MEDS: Protonix 20MG Tablet PO SCH (09:44)
[2017-02-22] MEDS: Zestril 5 MG PO SCH (09:45)
[2017-02-22] MEDS: Lantus Insulin SQ SCH (09:46)
[2017-02-22] MEDS: VANCOCIN 1 GM VIAL*** 1 GM in Sodium Chloride 0.9% 250 ML 250 ML IV SCH (10:56)
--- NOTE | 2017-02-22 12:03 | PCM.DS ---
Discharge Summary Date of Admission: 02/20/17 12:30 Admitting Physician: GIAN GREGORIO Primary Care Provider: GIAN GREGORIO Allergies Allergies No Known Drug Allergies Allergy (Verified 02/20/17 11:06) Hospital Summary - Hospital Course Hospital Course: Mr. Alejandre is a 56 yo male patient of mine from [facility], diabetic on insulin, who noticed 3-4 d ago his diabetic foot wound on the toe had worsened, with some erythema, blackening, and foul odor. I advised him to come to the ER. He was put on IV vancomycin and zosyn. The next morning Dr. Jensen saw the patient and they discussed and decided to amputate all the toes on that foot. He is now one day post op, eating well, awake, and has a cast on the L foot. He worked with PT this morning and could tolerate walking up and down stairs so PT thought he can d/c home. Has already been released by Dr. Jensen for this hospital stay. Pt will be discharged home on po antibiotics for a week. He will f/u with Dr. Jensen as scheduled. - Vitals & Intake/Output Vital Signs: Vital Signs Temperature 98.4 F 02/22/17 07:44 Pulse Rate 81 02/22/17 07:44 Respiratory Rate 18 02/22/17 07:44 Blood Pressure 109/55 02/22/17 07:44 O2 Sat by Pulse Oximetry 92 L 02/22/17 07:44 Oxygen-Last Documented O2 Percentage 2 Liters = 28% Intake & Output: Intake & Output 02/19/17 02/20/17 02/21/17 02/22/17 11:59 11:59 11:59 11:59 Intake Total 2383 3627 Output Total 350 1280 Balance 2033 2347 Weight 79.832 kg 79.832 kg - Lab Result Diagrams: 02/21/17 05:25 02/21/17 05:25 Lab Results-Last 24 Hrs: Accuchecks Date 02/22/17 Time 07:00 Accucheck Value: 173 Accucheck Value: 186 Accucheck Value: 153 Lab Results-Last 24 Hours 02/22/17 Range/Units 09:46 Vancomycin Trough 8.8 L (10-20) UG/ML Micro Results-Entire Visit: Accuchecks Date 02/22/17 Time 07:00 Accucheck Value: 173 Accucheck Value: 186 Accucheck Value: 153 - Radiology Exams Ordered Rad Exams-Entire Visit: Radiology Procedures Category Date Time Status [facility] FLUROSCOPY UP TO 1 HOUR Routine Exams 02/21/17 Completed - Procedures and Test Procedures and Tests throughout Hospitalization: Therapy Orders & Screens 02/20/17 15:51 OT Screen per Nursing Assess ONCE Comment: Protocol Order Physician Instructions: Greater than 3 points order OT Admission Screening Reason For Exam: Triggered on Admission Diagnosis: diabetic foot infection left foot; dry gangrene left 3rd toe Open Wound/Cellutlitis/Pressure Ulcers: Yes Acute Fx/ORIF/Change in wt bearing status: No Severe MUSCULOSKELETAL pain: No ADL Dysfunction: No Acute CVA w/Hemiparesis/Hemiplegia: No Decreased Functional Mobility/Strength: No Sprain/Strain: No Acute Post-op Mobility Dysfunction: No Total Points: 5 PT Screen per Nursing Assess ONCE Comment: Protocol Order Physician Instructions: Greater than 3 points order PT Admission Screenin Reason For Exam: Triggered on Admission Diagnosis: diabetic foot infection left foot; dry gangrene left 3rd toe Open Wound/Cellutlitis/Pressure Ulcers: Yes Acute Fx/ORIF/Change in wt bearing status: No Severe MUSCULOSKELETAL pain: No ADL Dysfunction: No Acute CVA w/Hemiparesis/Hemiplegia: No Decreased Functional Mobility/Strength: No Sprain/Strain: No Acute Post-op Mobility Dysfunction: No Total Points: 5 02/21/17 16:11 PT Eval & Treat (MD Order) ROUTINE Evaluate: Yes Treat: Yes Reason for Eval:: gait training/ stairs with cast Diagnosis: diabetic foot infection left foot; dry gangrene left 3rd toe Discharge Exam General Appearance: no apparent distress Neurologic Exam: alert, oriented x 3, cooperative Skin Exam: normal color, warm, dry Respiratory Exam: normal breath sounds, lungs clear, No crackles/rales, No rhonchi, No wheezing Cardiovascular Exam: regular rate/rhythm, normal heart sounds, No murmur Gastrointestinal/Abdomen Exam: soft, normal bowel sounds, No tenderness, No distention Extremity Exam: other (RLE s/p remote distal amputation approx 1/2-1/3 of foot. LLE encased totally in a cast.) Back Exam: normal inspection Final Diagnosis/Problem List - Final Discharge Diagnosis/Problem (1) Toe amputation status Current Visit: Yes Status: Acute Assessment & Plan: POD #1, doing great. F/u with Dr. Jensen as directed. (2) Diabetic foot infection Current Visit: Yes Status: Acute Assessment & Plan: will send home on antibiotics. (3) Type II diabetes mellitus, uncontrolled Current Visit: No Status: Chronic Assessment & Plan: BS 68-186 here but hard to control at home. - Discharge Disposition: Home, Self-Care Condition: Stable Prescriptions: New Doxycycline Hyclate 100 mg PO BID #14 tablet Hydrocodone/APAP 10/325 mg [Hope 10/325 MG Tablet] 1 - 2 tab PO Q6H PRN PRN #40 tablet PRN Reason: Pain Continue Pantoprazole Sodium [Zroareao54] 20 mg PO DAILY Liraglutide [Victoza 2-Edd] 1.2 mg SQ QAM Insulin Degludec [Tresiba Flextouch U-100] 40 unit SQ BID Insulin Aspart [NovoLOG Insulin] 18 unit SQ TIDWMEALS Pravastatin Sodium 40 mg PO HS Lisinopril 5 mg [Zestril 5 MG] 5 mg PO DAILY Follow up with: LEFTY JENSEN [ACTIVE STAFF] - 1 Week GIAN GREGORIO [Primary Care Provider] - Forms: Patient Portal Information
[2017-02-22 13:01] VITALS: BP 115/71; PULSE 83; O2SAT 96
[2017-02-22] MEDS ORDERED: VANCOCIN 1 GM VIAL*** 1.25 GM in Sodium Chloride 0.9% 250 ML 250 ML IV SCH (22:00)
== END 2017-02-22 15:00 | disposition home or self-care (01) | DRG 240 ==
LOC: ED 10:40 → MED SURG 12:30
PROVIDERS: ADMIT Family Medicine; ATTEND Family Medicine
PROC: 0Y6N0Z9 Detachment at Left Foot, Partial 1st Ray, Open Approach (ICD-10-PCS; principal; 2017-02-21)
PROC: 0Y6N0ZB Detachment at Left Foot, Partial 2nd Ray, Open Approach (ICD-10-PCS; 2017-02-21)
PROC: 0Y6N0ZC Detachment at Left Foot, Partial 3rd Ray, Open Approach (ICD-10-PCS; 2017-02-21)
PROC: 0Y6N0ZD Detachment at Left Foot, Partial 4th Ray, Open Approach (ICD-10-PCS; 2017-02-21)
PROC: 0Y6N0ZF Detachment at Left Foot, Partial 5th Ray, Open Approach (ICD-10-PCS; 2017-02-21)
DX: E11.52 Type 2 diabetes mellitus with diabetic peripheral angiopathy with gangrene (principal); E11.65 Type 2 diabetes mellitus with hyperglycemia; Z79.4 Long term (current) use of insulin; G62.9 Polyneuropathy, unspecified; I10 Essential (primary) hypertension; I73.9 Peripheral vascular disease, unspecified; K21.9 Gastro-esophageal reflux disease without esophagitis; Z79.899 Other long term (current) drug therapy; Z89.421 Acquired absence of other right toe(s); Z89.422 Acquired absence of other left toe(s)
CPT/HCPCS: 01480; 36000; 36415; 64450; 73620; 73630; 76000; 76942; 80048; 80053; 80202; 82962; 83605; 85025; 85610; 85652; 85730; 87040; 88307; 88311; 90715; 96360; 99284; 99285; J0690; J2250; J2270; J2370; J2543; J2704; J2795; J3010; J3370; A9270-GY

== ENCOUNTER 2017-07-23 05:51 | Day surgery (SDC) | payer MEDICARE ==
[2017-07-23] MEDS ORDERED: DIPRIVAN 200 MG/20 ML IV ONE (05:52)
[2017-07-23] MEDS ORDERED: Ketamine HCl 50 MG/ML IV ONE (05:52)
[2017-07-23] MEDS ORDERED: Lactated Ringers 1,000 ML IV ONE (06:06)
[2017-07-23] MEDS ORDERED: Lactated Ringers 1,000 ML IV SCH (06:30)
--- NOTE | 2017-07-23 08:31 | OP ---
SURGERY DATE/TIME: 07/23/2017 0741 PREOPERATIVE DIAGNOSES: 1) Screening colonoscopy. 2) Family history of colon cancer. POSTOPERATIVE DIAGNOSIS: Cecal polyp x1. PROCEDURE: Colonoscopy. SURGEON: Binu Bhatt M.D. ANESTHESIA: MAC by Nish Littlejohn CRNA. ESTIMATED BLOOD LOSS: Minimal. SPECIMENS: Hot forceps polypectomy of cecal polyp. DESCRIPTION OF PROCEDURE: After informed written consent was obtained, the patient was taken to the endoscopy suite. He underwent monitored anesthesia and a digital rectal exam showed normal sphincter tone and no internal lesions. The scope was inserted into the rectum and sequentially the entire colonic mucosa was traversed. The level of cecum was reached and verified with direct visualization of ileocecal valve. There was a small sessile polyp in the pericecal region which was removed in its entirety with hot forceps. Good hemostasis and complete removal of the lesion were accomplished. Upon withdrawal careful mucosal inspection revealed no other gross abnormalities. However, the patient did have semi-solid and liquid stool present throughout most the length of the colon resulting in fairly poor bowel prep. Prior to withdrawal retroflexion showed no obvious internal lesions. The scope was removed and the patient was transferred to the recovery room in excellent condition. I have advised that he follow up in a week for pathology results.
[2017-07-23 09:48] VITALS: BP 129/78; PULSE 77; O2SAT 95
== END 2017-07-23 09:15 | disposition home or self-care (01) ==
LOC: SDC 05:51
PROVIDERS: ATTEND Family Medicine
PROC: 0DBH8ZX Excision of Cecum, Via Natural or Artificial Opening Endoscopic, Diagnostic (ICD-10-PCS; principal; 2017-07-23)
DX: Z12.11 Encounter for screening for malignant neoplasm of colon (principal); Z80.0 Family history of malignant neoplasm of digestive organs; I10 Essential (primary) hypertension; K21.9 Gastro-esophageal reflux disease without esophagitis; E11.9 Type 2 diabetes mellitus without complications; K63.5 Polyp of colon
CPT/HCPCS: 00812; 88305; J2704

== ENCOUNTER 2019-02-08 08:21 | Day surgery (SDC) | payer MEDICARE ==
[~2019-02-08 08:21] MED LIST: Lactated Ringers 1,000 ML IV ONE; Lactated Ringers 1,000 ML IV SCH
--- NOTE | 2019-02-08 09:30 | HP ---
DATE OF SURGERY: 02/08/2019 HISTORY OF PRESENT ILLNESS: The patient is a 58 year-old with some dysphagia for some time upper esophagus with solids and liquids. He has history of reflux. He is in need of upper endoscopy possible biopsy and dilatation. PAST MEDICAL HISTORY: Hypercholesterolemia, anxiety and some reflux, diabetes. PAST SURGICAL HISTORY: Cholecystectomy. He had some toes amputated for diabetes. MEDICATIONS: Includes lamotrigine, Simvastatin, Sertraline, ranitidine, Pravastatin, pantoprazole, Novolin, Latanoprost eye drops. ALLERGIES: NKDA. FAMILY HISTORY: Cancer. SOCIAL HISTORY: No smoking or alcohol abuse. REVIEW OF SYSTEMS: Fourteen systems reviewed per admission assessment. He denies any family history of esophageal or stomach cancer in the past. No chest pain or palpitations other systems negative or noncontributory as above and per preadmission questionnaire. PHYSICAL EXAMINATION: GENERAL: No acute distress. HEENT: Sclerae nonicteric. NECK: No JVD. CHEST: Equal excursion, nonlabored breathing. CVS: Regular rate and rhythm. ABDOMEN: Soft. No peritoneal signs. nontender, nondistended. EXTREMITIES: No significant edema. NEURO: Alert, oriented, moving extremities symmetrically. No gross motor deficits noted. IMPRESSION: Dysphagia, feels like getting choked mainly upper esophagus. I feel he would benefit from EGD, possible dilatation. Risks and benefits explained in detail including but not limited to bleeding or infection, risk of bowel injury or perforation possibly requiring open procedure, risk of missed or nondiagnosis or incomplete exam possibly requiring barium swallow, other studies or procedures, general risk of sedation. He also understands possibility dysphagia might require other procedures or dilatation down the road. He also understands that there may be a functional problem that dilatation may not improve his symptoms. He understands and agrees to the planned procedure and will proceed with outpatient EGD with possible biopsy, possible dilatation as an outpatient.
[2019-02-08] MEDS ORDERED: DIPRIVAN 200 MG/20 ML IV ONE (09:52)
[2019-02-08] MEDS ORDERED: Ketamine HCl 50 MG/ML ONE (09:55)
[2019-02-08 10:50] VITALS: PULSE 67
[2019-02-08 11:22] VITALS: BP 150/77; O2SAT 97
--- NOTE | 2019-02-08 14:59 | OP ---
SURGERY DATE/TIME: 02/08/2019 1005 PREOPERATIVE DIAGNOSIS: Dysphagia. POSTOPERATIVE DIAGNOSES: 1) Minimal to mild gastritis. 2) Short segment of possible early Miller's esophagus, path pending. 3) Symptomatic proximal esophageal narrowing and spasm. PROCEDURES: 1) EGD with cold biopsy of the antrum to evaluate for Helicobacter pylori. 2) Cold biopsy of the distal esophagus to evaluate for Miller's esophagus. 3) Proximal esophageal balloon dilatation (size 20 balloon dilator). SURGEON: Dr. Shyam Price. ANESTHESIA: MAC. ESTIMATED BLOOD LOSS: Minimal. INDICATIONS: As noted above. Risks and benefits explained in detail and not limited to and consent obtained. DESCRIPTION OF PROCEDURE AND FINDINGS: The patient is taken to the operating room. MAC anesthesia introduced. After official time out and no disagreement with planned procedure, a bite block positioned. Video gastroscope easily passed over the back of the tongue to the proximal esophagus where it had a narrowed and spasm area. There was no obvious mass to biopsy but given the narrowed and spasm area where he was having symptoms, it was felt this warranted dilatation. The scope was passed down through the gastroesophageal junction to the patent pylorus to the junction of the second and third portion of the duodenum. Duodenum and duodenal bulb were grossly unremarkable. Scope pulled back into the stomach. He did have a small amount of intragastric reflux. He did have some mild erythema and possible some minimal to mild gastritis. Cold biopsy taken for CLOtest. Good hemostasis noted. On retroflex there were no signs of any significant hiatal hernia. The scope was straightened. Gastroesophageal junction 40 cm. A short segment of 1 cm or less possible early gastroesophagitis or Miller's esophagus, cold biopsy taken of this fingerlet of salmon-pink mucosa extending up the esophagus. Good hemostasis noted. Otherwise the remainder of the esophagus no signs of any obvious mass or mucosal lesions. He did have the proximal esophageal narrowing and spasm. It was this warranted dilatation. The scope is then passed back down through the stomach and the balloon catheter carefully inserted. The balloon catheter pulled back up to the narrowed area proximal esophagus and carefully inflated first stage 30 to 40 seconds size 18 balloon dilator, second stage 30 to 40 seconds size 19 balloon dilator in the symptomatic proximal esophageal narrowed area. Final stage balloon was inflated size [address] for a good minute and a half. The patient did have some brief desaturation. It was felt it was safe to go ahead and decompress the balloon. There does not appear to be any evidence of any full thickness issues secondary to dilatation. The balloon catheter and scope carefully withdrawn, pulled free. Supplemental oxygen and the patient's saturations came up. Transferred to the recovery room in stable condition. There were no immediate complications. Findings discussed with the family out in the waiting area. I will see him back in the office next week. Room temperature liquids for four hours and then advance diet as tolerated.
== END 2019-02-08 11:34 | disposition home or self-care (01) ==
LOC: SDC 08:21
PROVIDERS: ATTEND Surgery
DX: K29.70 Gastritis, unspecified, without bleeding (principal); K22.2 Esophageal obstruction; E11.9 Type 2 diabetes mellitus without complications; E78.00 Pure hypercholesterolemia, unspecified
CPT/HCPCS: 82962; 87081; 88305; J2704

== ENCOUNTER 2020-06-09 05:53 | Day surgery (SDC) | payer MEDICARE ==
[2020-06-09] MEDS ORDERED: Lactated Ringers 1,000 ML IV ONE (06:19)
[2020-06-09] MEDS ORDERED: CEFAZOLIN 2 GM-D5W BAG** 2 GM/50 ML ML IV SCH (06:30)
[2020-06-09] MEDS ORDERED: Lactated Ringers 1,000 ML IV SCH (06:30)
[2020-06-09] MEDS ORDERED: XYLOCAINE 1% HCL 20 ML MDV ONE (06:36)
[2020-06-09] MEDS ORDERED: BUPIVACAINE 0.5% VIAL IJ ONE (06:36)
[2020-06-09] MEDS ORDERED: Versed 2 MG/2 ML Injection ONE (06:56)
[2020-06-09] MEDS ORDERED: SUBLIMAZE 100 MCG/2 ML ONE ×2 (06:56→08:13)
[2020-06-09] MEDS ORDERED: Xylocaine-Mpf 2% 5 Ml Vial ONE (06:56)
[2020-06-09] MEDS ORDERED: DIPRIVAN 200 MG/20 ML IV ONE (06:56)
[2020-06-09] MEDS ORDERED: Hydromorphone 1 mg/ml Injection ONE (08:13)
[2020-06-09] MEDS ORDERED: APRESOLINE 20 MG/ML INJ ONE (08:41)
--- NOTE | 2020-06-09 08:59 | XRAY ---
23 seconds fluoroscopy time in surgery for right foot exostosis.
--- NOTE | 2020-06-09 09:01 | XRAY ---
Indication: Right foot excision of cuneiform exostosis. Intraoperative fluoroscopy was provided for 23 seconds. 2 digital spot images of the right foot demonstrates metatarsophalangeal amputation. Correlate with intraoperative findings/report.
--- NOTE | 2020-06-09 10:30 | OP ---
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 The patient has seen me in previous instances in the wound care center where I addressed the biomechanical issue with him and stated when he is ready we may be able to go forward of surgical excision of the exostosis as well as lengthening of the posterior cord in order to prevent pressure to this area. The patient came to me approximately two weeks ago and wishes to proceed with surgical intervention at that time. He understands all risks, implications and complications that could occur due to or because of anesthesia as well as the surgical procedure including but not limited to possible failure of correction, possible recurrence of the deformity as well as posterior heel cord rupture due to the tendon Achilles lengthening. The patient understands all of this and still wishes to proceed. Adequate time was given in order to understand and ask questions. The patient's questions were answered to the patient's apparent satisfaction. PREOPERATIVE DIAGNOSES: 1) Diabetic foot ulcer. 2) Equinus. 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 POSTOPERATIVE DIAGNOSES: 1) Diabetic foot ulcer. 2) Equinus. 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 PROCEDURES: 1) Exostectomy right foot. 2) Percutaneous tendon Achilles lengthening. SURGEON: Sam Son DPM. DRAWING BOX TENDER: None. ANESTHESIA: MAC plus local. HEMOSTASIS: Thigh tourniquet set to 300 mm of Mercury for approximately 34 minutes. ESTIMATED BLOOD LOSS: Less than 10 cc. MATERIALS: 2-0 Vicryl, 3-0 Nylon. INJECTABLES: 30 cc of 1:1 mixture of 0.5% Marcaine plain and 1% lidocaine plain 30 cc total, injected in ankle block-type fashion. DESCRIPTION OF PROCEDURE AND FINDINGS: After adequate anesthesia assessment in the preoperative assessment area, the patient was brought into the OR and MAC sedation was administered after the patient was placed on the OR table in the supine position. At this time a preoperative block consisting of a 1:1 mixture of 0.5% Marcaine plane and 1% lidocaine was injected into the right ankle in an ankle block-type fashion. At this time the right lower extremity was prepped and draped in the typical sterile fashion and the right lower extremity was lowered onto the surgical field. At this time a skin marker was utilized to map out the plantar aspect of the medial cuneiform an incision bisecting this bone was made utilizing a 10 blade at the medial aspect. At this time the tibialis anterior tendon was reflected out of the surgical site and made sure to not remove any of its attachments. At this time the incision was deepened utilizing blunt and sharp dissection in a combination down to the level of the periosteum of the bone. The periosteum was incised and a sagittal saw 31 mm blade was introduced resecting approximately 1 cm of the plantar aspect of the medial cuneiform. At this time the incision was flushed with copious amounts of sterile saline and this was checked under C-arm and deemed to be adequate on the lateral and AP view. At this time a bone rasp was utilized to smooth down any roughened edges and the tibialis anterior was reapproximated to the periosteum of the bone which was closed over the bone. Again, a flush was performed of the surgical site and the surgical site was closed utilizing 2-0 Vicryl and 3-0 Nylon in a horizontal mattress-type fashion. At this time attention then was directed to the posterior aspect of the Achilles tendon where a ruler was utilized to measure out 5, 8 and 11 cm on the posterior calcaneal tendon at the insertion of the Achilles tendon. At this time a medial-lateral, medial approach for percutaneous Achilles tendon lengthening was utilized. An 11 blade was introduced in a vertical orientation and swiped from the medial perspective to a lateral perspective and then repeated in alternating fashion at the indicated measurements until there was release of the Achilles tendon. Following this procedure there was approximately 20 degrees of dorsiflexion that was seen at the ankle joint relative to the longitudinal axis in a 90 degree angle measured from that. The tourniquet was then taken down and the remaining incision sites were coapted utilizing 3-0 Nylon in an interrupted-type suture fashion. The incision site was then cleansed utilizing sterile saline and Betadine paint was applied to the incision site. Adaptic was applied and then a dry sterile dressing consisting of Adaptic, 4x4, Kerlix and a posterior splint with copious amounts of padding was applied to the right lower extremity and a posterior plaster splint was applied to the right leg. The patient was reversed from anesthesia and returned to the postoperative anesthesia care unit with vital signs stable and vascular status intact. Postoperative orders as follows: 1) Keep dressing clean, dry and intact. Do not alter the dressings without any consultation with Dr. Sam vickers. Dressing is to remain dry throughout the postoperative course. 2) Elevate operative extremity above the level of the heart to reduce inflammation and pain. 3) Weight bearing status: Nonweight bearing to the right operative extremity. Full weight bearing to the left nonoperative extremity with the assistance of a walker for transfers. However, primarily will be in a wheelchair. 4) Postoperative pain control with hydrocodone, acetaminophen 5/325 mg every four hours PRN for break through pain and alternate with ibuprofen 600 mg every six hours for break through pain. 5) Postoperative infection prophylaxis: Keflex 500 mg every six hours for ten days. 6) Postoperative deep venous thrombosis prophylaxis: Aspirin 325 mg p.o. daily until full weight bearing. 7) Follow up within one week of clinical procedure. 8) Discharge the patient to home when discharge criteria is met.
[2020-06-09 13:21] VITALS: PULSE 83
[2020-06-09 13:30] VITALS: BP 135/81; O2SAT 94
== END 2020-06-09 10:50 | disposition home or self-care (01) ==
LOC: SDC 05:53
PROVIDERS: ATTEND Podiatrist Foot & Ankle Surgery
DX: E11.621 Type 2 diabetes mellitus with foot ulcer (principal); M89.9 Disorder of bone, unspecified; M77.51 Other enthesopathy of right foot and ankle; M24.573 Contracture, unspecified ankle; I10 Essential (primary) hypertension; Z86.79 Personal history of other diseases of the circulatory system; Z79.4 Long term (current) use of insulin; Z79.899 Other long term (current) drug therapy
CPT/HCPCS: 27606; 28122; 73620; 76000; 82947; 88304; J0360; J0690; J1170; J2250; J2704; J3010

== ENCOUNTER 2020-09-07 11:45 | Emergency (ER) | payer MEDICARE ==
--- NOTE | 2020-09-07 11:48 | ERPHSYRPT ---
- History of Present Illness Time Seen by Provider: 09/07/20 11:47 Historian: patient Exam Limitations: no limitations Physician History: This is a 60-year-old white male diabetic with history of gastroesophageal reflux disease and hypertension and a patient of Dr. Fry who presents with 3-4 episodes of vomiting and 3-4 episodes of diarrhea that began at approximately 7:00 this morning. Patient states that he felt well when he went to bed last night. However he woke up and then began vomiting first. He has a mild amount of diffuse abdominal pain. He has had no fevers. He has not had a COVID-19 vaccination. He has not been exposed to anyone with any infectious illness that he is aware of. There are no new medications that he is taking. He denies cough, shortness of breath and denies chest pain. Timing/Duration: today Activities at Onset: none Quality: fullness Abdominal Pain Onset Location: generalized abdomen Pain Radiation: no radiation Severity of Pain-Max: mild Severity of Pain-Current: mild Modifying Factors: Improves With: vomiting Associated Symptoms: diarrhea, loss of appetite, nausea, vomiting, No chest pain, No fever/chills, No shortness of breath Previous symptoms: no prior history Allergies/Adverse Reactions: No Known Drug Allergies Allergy (Verified 09/07/20 12:01) Home Medications: Pantoprazole Sodium [[id number]] 20 mg PO DAILY 09/23/14 [History] Insulin Glargine [Lantus Insulin] 14 unit SQ BREAKFAST 02/02/19 [History] Insulin Glargine [Lantus Insulin] 44 unit SQ HS 02/02/19 [History] Insulin Regular, Human [Novolin R] 10 units SQ BREAKFAST 02/02/19 [History] Insulin Regular, Human [Novolin R] 16 units SQ HS 02/02/19 [History] Insulin Regular, Human [Novolin R] 16 units SQ LUNCH 02/02/19 [History] Lamotrigine 25 mg PO BID 02/02/19 [History] Pramipexole Di-HCl [Pramipexole Dihydrochloride] 0.25 mg PO HS 02/02/19 [History] Simvastatin [Zocor] 40 mg PO HS 02/02/19 [History] Hydrocodone Bit/Acetaminophen [Hydrocodon-Acetaminophen 5-325] 1 tab Q6H PRN PRN 05/30/20 [History] Latanoprost/Pf [Latanoprost 0.005% Eye Drop] 1 drop HS 05/30/20 [History] Naproxen 500 mg [Naprosyn 500 MG] 500 mg PO BID 05/30/20 [History] Hx Tetanus, Diphtheria Vaccination/Date Given: No Hx Influenza Vaccination/Date Given: Yes Hx Pneumococcal Vaccination/Date Given: Yes Travel Risk - International Travel Have you traveled outside of the country in past 3 weeks: No - Coronavirus Screening Are you exhibiting any of the following symptoms?: Yes Symptoms: Vomiting/Diarrhea Close contact with a COVID-19 positive Pt in past 14-21 Days: No - Review of Systems Constitutional: No Symptoms Eyes: No Symptoms Ears, Nose, & Throat: No Symptoms Respiratory: No Symptoms Cardiac: No Symptoms Abdominal/Gastrointestinal: Abdominal Pain, Nausea, Vomiting, Diarrhea Genitourinary Symptoms: No Symptoms Musculoskeletal: No Symptoms Skin: No Symptoms Neurological: No Symptoms Psychological: No Symptoms Endocrine: No Symptoms Hematologic/Lymphatic: No Symptoms Immunological/Allergic: No Symptoms All Other Systems: Reviewed and Negative - Past Medical History Pertinent Past Medical History: Yes Neurological History: No Pertinent History ENT History: Cataracts, Glaucoma Cardiac History: No Pertinent History Respiratory History: No Pertinent History Endocrine Medical History: Diabetes Type II Musculoskeletal History: Osteoarthritis GI Medical History: GERD, Gallbladder Disease History: No Pertinent History Psycho-Social History: Depression Male Reproductive Disorders: No Pertinent History Other Medical History: OSTEOMYELITIS - Past Surgical History Past Surgical History: Yes Neuro Surgical History: No Pertinent History Cardiac: No Pertinent History Respiratory: No Pertinent History Gastrointestinal: Cholecystectomy Genitourinary: No Pertinent History Musculoskeletal: Amputation Male Surgical History: No Pertinent History Other Surgical History: both feet toes amputation - Social History Smoking Status: Never smoker Exposure to second hand smoke: No Drug Use: none Patient Lives Alone: No - Nursing Vital Signs Nursing Vital Signs: Initial Vital Signs Temperature 97.8 F 09/07/20 11:53 Pulse Rate 88 09/07/20 11:53 Respiratory Rate 18 09/07/20 11:53 Blood Pressure 161/104 09/07/20 11:53 O2 Sat by Pulse Oximetry 98 09/07/20 11:53 Pain Scale Pain Intensity 0 - Physical Exam General Appearance: no apparent distress, alert, anxiety Eye Exam: PERRL/EOMI, eyes nml inspection Ears, Nose, Throat Exam: normal ENT inspection, moist mucous membranes Neck Exam: normal inspection, non-tender, supple, full range of motion Respiratory Exam: normal breath sounds, lungs clear, airway intact, No chest tenderness, No respiratory distress Cardiovascular Exam: regular rate/rhythm, normal heart sounds, normal peripheral pulses Gastrointestinal/Abdomen Exam: soft, normal bowel sounds, tenderness (Mild dif fuse), No guarding Rectal Exam: not done Back Exam: normal inspection, normal range of motion, No CVA tenderness Extremity Exam: normal inspection, normal range of motion, pelvis stable Neurologic Exam: alert, oriented x 3, cooperative, chrome tanner II-XII nml as tested, normal mood/affect, nml cerebellar function, nml station & gait, sensation nml Skin Exam: normal color, warm, dry Lymphatic Exam: No adenopathy SpO2 Interpretation: normal O2 Delivery: Room Air - Course Nursing assessment & vital signs reviewed: Yes Ordered Tests: Active Orders 24 hr Category Date Time Status IV Insertion STAT Care 09/07/20 12:15 Active ABDOMEN AND PELVIS W/0 CONTRAS [CT] Stat Exams 09/07/20 12:15 Completed AMYLASE Stat Lab 09/07/20 12:36 Completed CBC W DIFF Stat Lab 09/07/20 12:36 Completed CMP Stat Lab 09/07/20 12:36 Completed LIPASE Stat Lab 09/07/20 12:36 Completed Lactic Acid Stat Lab 09/07/20 12:15 Completed UA W/RFX UR CULTURE Stat Lab 09/07/20 13:54 Completed Medication Summary Generic Name Dose Route Start Last Admin Trade Name Freq PRN Reason Stop Dose Admin Ceftriaxone Sodium/Dextrose 1 g in 50 mls @ 100 mls/hr 09/07/20 14:48 09/07/20 15:05 Rocephin 1 Gm-D5w 50 Ml Bag IV 09/07/20 15:17 100 mls/hr STAT STA 100 mls/hr Administration Discontinued Medications Generic Name Dose Route Start Last Admin Trade Name Freq PRN Reason Stop Dose Admin Sodium Chloride 1,000 mls @ 999 mls/hr 09/07/20 12:15 09/07/20 13:54 Sodium Chloride 0.9% 1000 Ml IV 09/07/20 13:15 Infused .Q1H1M STA Infusion Sodium Chloride Confirm 09/07/20 12:29 Sodium Chloride 0.9% 1000 Ml Administered 09/07/20 12:30 Dose 1,000 mls @ ud .ROUTE .STK-MED ONE Sodium Chloride 1,000 mls @ 999 mls/hr 09/07/20 13:33 09/07/20 15:04 Sodium Chloride 0.9% 1000 Ml IV 09/07/20 14:33 Infused .Q1H1M STA Infusion Sodium Chloride Confirm 09/07/20 13:47 Sodium Chloride 0.9% 1000 Ml Administered 09/07/20 13:48 Dose 1,000 mls @ ud .ROUTE .STK-MED ONE Ceftriaxone Sodium/Dextrose Confirm 09/07/20 14:59 Rocephin 1 Gm-D5w 50 Ml Bag Administered 09/07/20 15:00 Dose 1 g in 50 mls @ ud IV .STK-MED ONE Ondansetron HCl 4 mg 09/07/20 12:15 09/07/20 12:30 Zofran 4 Mg/2 Ml Vial IV 09/07/20 12:16 4 mg STAT ONE Administration Ondansetron HCl Confirm 09/07/20 12:29 Zofran 4 Mg/2 Ml Vial Administered 09/07/20 12:30 Dose 4 mg .ROUTE .STK-MED ONE Lab/Rad Data: Laboratory Result Diagrams 09/07/20 12:36 09/07/20 12:36 Laboratory Results 09/07/20 09/07/20 09/07/20 Range/Units 13:54 12:36 12:36 WBC 11.5 H (4.0-10.5) K/mm3 RBC 5.75 H (4.1-5.6) M/mm3 Hgb 15.6 (12.5-18.0) gm/dl Hct 47.9 (42-50) % MCV 83.3 (78-100) fl MCH 27.1 (26-32) pg MCHC 32.6 (32-36) g/dl RDW 15.4 H (11.5-14.0) % Plt Count 216 (150-450) K/mm3 MPV 9.2 (7.5-11.0) fl Gran % 92.2 H (36.0-66.0) % Eos # (Auto) 0.04 (0-0.5) Absolute Lymphs (auto) 0.43 L (1.0-4.6) Absolute Monos (auto) 0.43 (0.0-1.3) Lymphocytes % 3.7 L (24.0-44.0) % Monocytes % 3.7 (0.0-12.0) % Eosinophils % 0.3 (0.00-5.0) % Basophils % 0.1 (0.0-0.4) % Absolute Granulocytes 10.59 H (1.4-6.9) Basophils # 0.01 (0-0.4) Sodium 141 (137-145) mmol/L Potassium 4.2 (3.5-5.1) mmol/L Chloride 101 (98-107) mmol/L Carbon Dioxide 26 (22-30) mmol/L Anion Gap 17.5 H (5-15) MEQ/L BUN 26 H (9-20) mg/dL Creatinine 0.86 (0.66-1.25) mg/dL Estimated GFR > 60.0 ML/MIN Glucose 285 H (74-106) mg/dL Lactic Acid (0.4-2.0) Calcium 9.1 (8.4-10.2) mg/dL Total Bilirubin 0.70 (0.2-1.3) mg/dL AST 24 (17-59) U/L ALT 23 (0-50) U/L Alkaline Phosphatase 71 (38-126) U/L Serum Total Protein 8.1 (6.3-8.2) g/dL Albumin 4.6 (3.5-5.0) g/dL Amylase 71 (30-110) U/L Lipase 94 (23-300) U/L Urine Color YELLOW (YELLOW) Urine Appearance SLIGHTLY CLOUDY (CLEAR) Urine pH 5.0 (5-6) Ur Specific [place] 1.024 (1.005-1.025) Urine Protein 30 (Negative) Urine Ketones TRACE (NEGATIVE) Urine Blood SMALL (0-5) Rd/ul Urine Nitrite POSITIVE (NEGATIVE) Urine Bilirubin NEGATIVE (NEGATIVE) Urine Urobilinogen NEGATIVE (0-1) mg/dL Ur Leukocyte Esterase NEGATIVE (NEGATIVE) Urine WBC (Auto) 3-5 (0-5) /HPF Urine RBC (Auto) NONE (0-2) /HPF U Hyaline Cast (Auto) 26-50 (0-2) /LPF U Epithel Cells (Auto) RARE (FEW) /HPF Urine Bacteria (Auto) PACKED (NEGATIVE) /HPF Urine Mucus (Auto) MANY (NEGATIVE) /HPF Urine Culture Reflexed YES (NO) Urine Glucose 150 (NEGATIVE) mg/dL 09/07/20 Range/Units 12:15 WBC (4.0-10.5) K/mm3 RBC (4.1-5.6) M/mm3 Hgb (12.5-18.0) gm/dl Hct (42-50) % MCV (78-100) fl MCH (26-32) pg MCHC (32-36) g/dl RDW (11.5-14.0) % Plt Count (150-450) K/mm3 MPV (7.5-11.0) fl Gran % (36.0-66.0) % Eos # (Auto) (0-0.5) Absolute Lymphs (auto) (1.0-4.6) Absolute Monos (auto) (0.0-1.3) Lymphocytes % (24.0-44.0) % Monocytes % (0.0-12.0) % Eosinophils % (0.00-5.0) % Basophils % (0.0-0.4) % Absolute Granulocytes (1.4-6.9) Basophils # (0-0.4) Sodium (137-145) mmol/L Potassium (3.5-5.1) mmol/L Chloride (98-107) mmol/L Carbon Dioxide (22-30) mmol/L Anion Gap (5-15) MEQ/L BUN (9-20) mg/dL Creatinine (0.66-1.25) mg/dL Estimated GFR ML/MIN Glucose (74-106) mg/dL Lactic Acid 1.7 (0.4-2.0) Calcium (8.4-10.2) mg/dL Total Bilirubin (0.2-1.3) mg/dL AST (17-59) U/L ALT (0-50) U/L Alkaline Phosphatase (38-126) U/L Serum Total Protein (6.3-8.2) g/dL Albumin (3.5-5.0) g/dL Amylase (30-110) U/L Lipase (23-300) U/L Urine Color (YELLOW) Urine Appearance (CLEAR) Urine pH (5-6) Ur Specific [place] (1.005-1.025) Urine Protein (Negative) Urine Ketones (NEGATIVE) Urine Blood (0-5) Rd/ul Urine Nitrite (NEGATIVE) Urine Bilirubin (NEGATIVE) Urine Urobilinogen (0-1) mg/dL Ur Leukocyte Esterase (NEGATIVE) Urine WBC (Auto) (0-5) /HPF Urine RBC (Auto) (0-2) /HPF U Hyaline Cast (Auto) (0-2) /LPF U Epithel Cells (Auto) (FEW) /HPF Urine Bacteria (Auto) (NEGATIVE) /HPF Urine Mucus (Auto) (NEGATIVE) /HPF Urine Culture Reflexed (NO) Urine Glucose (NEGATIVE) mg/dL - Progress Progress: improved, re-examined Progress Note: 09/07/20 13:14 I just reassessed the patient. Patient states he is slowly feeling better. 09/07/20 15:10 I just reexamined the patient prior to discharge to home. He states he is even feeling better. He has had no vomiting episodes and no diarrhea since he has been in the emergency room. Patient states he feels comfortable going home. I reviewed the CAT scan findings of his abdomen and pelvis without contrast. That showed new ileus versus gastroenterocolitis. There is no bowel obstruction and no other acute intra-abdominal or intrapelvic findings. Counseled pt/family regarding: lab results, diagnosis, need for follow-up, rad results - Departure Departure Disposition: Home Clinical Impression: UTI (urinary tract infection), Colitis Condition: Stable Critical Care Time: No Referrals: GIAN FRY [Primary Care Provider] - Additional Instructions: Drink plenty of fluids. Monitor your blood sugar closely. Take your antibiotics as prescribed. Follow-up with your primary care doctor for further management. Prescriptions: Ondansetron ODT 4 MG [Zofran Odt 4 mg] 4 mg PO Q6H PRN PRN #10 tab.rapdis PRN Reason: Vomiting Ciprofloxacin [Cipro 500 MG] 500 mg PO BID #14 tablet Metronidazole 500 mg [Flagyl 500 MG] 500 mg PO TID #21 tablet
[2020-09-07] MEDS ORDERED: Zofran 4 MG/2 ML VIAL IV ONE (12:15)
[2020-09-07] MEDS ORDERED: Sodium Chloride 0.9% 1000 ML 1,000 ML IV STA ×2 (12:15→13:33)
[2020-09-07] MEDS ORDERED: Zofran 4 MG/2 ML VIAL ONE (12:29)
[2020-09-07] MEDS ORDERED: Sodium Chloride 0.9% 1000 ML 1,000 ML ONE ×2 (12:29→13:47)
[2020-09-07 12:38] LABS: Absolute Neutrophil Ct (ANC) 10.59 (1.4-6.9); BASOPHIL % 0.1 % (0.0-0.4); Basophil (Absolute #) 0.01 (0-0.4); Eosinophil % 0.3 % (0.00-5.0); Eosinophil (Absolute #) 0.04 (0-0.5); Hematocrit 47.9 % (42-50); Hemoglobin 15.6 gm/dl (12.5-18.0); Lymphocyte (Absolute #) 0.43 (1.0-4.6); Lymphocytes % 3.7 % (24.0-44.0); Mean Cell Volume 83.3 fl (78-100); Mean Corpuscular Hemoglobin 27.1 pg (26-32); Mean Corpuscular Hgb Concent. 32.6 g/dl (32-36); Mean Platelet Volume 9.2 fl (7.5-11.0); Monocyte (Absolute #) 0.43 (0.0-1.3); Monocytes % 3.7 % (0.0-12.0); Neutrophil % 92.2 % (36.0-66.0); Platelet Count 216 K/mm3 (150-450); Red Blood Count 5.75 M/mm3 (4.1-5.6); Red Cell Distribution Width 15.4 % (11.5-14.0); White Blood Count 11.5 K/mm3 (4.0-10.5)
[2020-09-07 12:49] LABS: ALBUMIN 4.6 g/dL (3.5-5.0); ALKALINE PHOSPHATASE 71 U/L (38-126); AMYLASE 71 U/L (30-110); ANION GAP 17.5 MEQ/L (5-15); BLOOD UREA NITROGEN 26 mg/dL (9-20); CHLORIDE 101 mmol/L (98-107); Calcium 9.1 mg/dL (8.4-10.2); Carbon Dioxide 26 mmol/L (22-30); Creatinine 1 0.86 mg/dL (0.66-1.25); EST GLOMERULAR FILTRATION RATE > 60.0 ML/MIN; Glucose 285 mg/dL (74-106); LIPASE 94 U/L (23-300); Potassium 4.2 mmol/L (3.5-5.1); SGOT/AST 24 U/L (17-59); SGPT/ALT 23 U/L (0-50); SODIUM 141 mmol/L (137-145); Total Protein 8.1 g/dL (6.3-8.2)
--- NOTE | 2020-09-07 13:14 | XRAY ---
Indication: Abdomen pain, nausea, vomiting, and diarrhea. Multiple contiguous axial images obtained through the abdomen and pelvis without contrast. Comparison: May 08, 2017. Lung bases are clear of infiltrate or effusion. Minimal fibrosis/scarring. Heart is not enlarged. Stomach, small bowel loops, and right hemicolon are now mildly fluid distended with some fluid leveling either gastroenterocolitis versus ileus. Normal appendix. Mild fecal debris predominantly in the descending, sigmoid, and rectum. Again tiny hepatic calcified granuloma, right renal parapelvic cyst, and cholecystectomy. No free fluid/air. Remaining liver, pancreas, spleen, adrenal glands, kidneys, ureters, and bladder appear unremarkable for noncontrast exam. Stable minimal aortoiliac calcifications without AAA. Osseous structures intact again with minimal degenerative changes throughout the thoracolumbar spine. Impression: 1. New fluid distended stomach, small bowel, and right hemicolon with fluid leveling. Rule out ileus versus gastroenterocolitis. Incidental left hemicolon and sigmoid fecal loading. 2. Stable right renal cyst. 3. Remaining CT abdomen/pelvis without contrast exam is negative.
[2020-09-07 14:05] LABS: Appearance SLIGHTLY CLOUDY (CLEAR); Bacteria PACKED /HPF (NEGATIVE); Bilirubin NEGATIVE (NEGATIVE); Blood SMALL Ery/ul (0-5); Epithelial Cells RARE /HPF (FEW); Glucose 150 mg/dL (NEGATIVE); Hyaline Casts 26-50 /LPF (0-2); Ketones TRACE (NEGATIVE); Leukocyte Esterase NEGATIVE (NEGATIVE); Mucus MANY /HPF (NEGATIVE); Nitrite POSITIVE (NEGATIVE); Protein,Urine Dip 30 (Negative); Specific Gravity 1.024 (1.005-1.025); Urobilinogen NEGATIVE mg/dL (0-1)
[2020-09-07] MEDS ORDERED: ROCEPHIN 1 Gm-D5w 50 ml Bag** 1 G/50 ML IVPB IV STA (14:48)
[2020-09-07] MEDS ORDERED: ROCEPHIN 1 Gm-D5w 50 ml Bag** 1 G/50 ML IVPB IV ONE (14:59)
[2020-09-07 15:07] VITALS: BP 152/98; PULSE 90; O2SAT 97
[2020-09-07 15:40] LABS: Slide Review 1 YES
== END 2020-09-07 15:44 | disposition home or self-care (01) ==
LOC: ED 11:45
DX: N39.0 Urinary tract infection, site not specified (principal); K52.9 Noninfective gastroenteritis and colitis, unspecified; I10 Essential (primary) hypertension; K21.9 Gastro-esophageal reflux disease without esophagitis; R19.7 Diarrhea, unspecified; R11.2 Nausea with vomiting, unspecified; Z79.899 Other long term (current) drug therapy; E11.9 Type 2 diabetes mellitus without complications
CPT/HCPCS: 36000; 36415; 74176; 80053; 81001; 82150; 83605; 83690; 85025; 87077; 87086; 87186; 96360; 96361; 96365; 96374; 99284; J0696; J2405

== ENCOUNTER 2021-02-07 05:49 | Day surgery (SDC) | payer MEDICARE ==
[2021-02-07] MEDS: Lactated Ringers 1,000 ML IV SCH (06:31)
[2021-02-07 09:22] VITALS: BP 134/79; PULSE 66; O2SAT 100
--- NOTE | 2021-02-07 11:22 | OP ---
SURGERY DATE/TIME: 02/07/2021 0749 PREOPERATIVE DIAGNOSES: 1) Persistent gastroesophageal reflux disease. 2) History of colon polyps. POSTOPERATIVE DIAGNOSES: 1) Normal EGD. 2) Normal colon. PROCEDURES: 1) EGD. 2) Colonoscopy. SURGEON: Binu Bhatt M.D. ANESTHESIA: MAC by García Quevedo CRNA. ESTIMATED BLOOD LOSS: None. SPECIMENS: None. DESCRIPTION OF PROCEDURE: After informed written consent was obtained, the patient was taken to the endoscopy suite. He had a bite block inserted and was placed in the left lateral decubitus position. Anesthesia was titrated to desired level of consciousness. The endoscope was inserted in the posterior oropharynx and under direct visualization the esophagus was easily traversed. The esophageal mucosa was normal as well as the gastroesophageal junction. Upon entering into the stomach there was normal rugated gastric mucosa free of any lesions or defects. The pylorus was traversed and the duodenum had a normal mucosal appearance with no obvious inflammatory or ulcerated changes. Upon withdrawal again all mucosal structures appeared within normal limits in the gastric cavity the gastroesophageal junction and esophageal. The scope was removed and the scopes were switched. Digital rectal exam showed normal sphincter tone and no internal lesions. The colonoscope was inserted in the rectum and sequentially the entire colonic mucosa was traversed. The level of the cecum was reached and verified with direct visualization of the ileocecal valve. Upon withdrawal careful mucosal inspection revealed no gross abnormalities. The prep was noted to be fair with some liquid stool throughout the colon present. Prior to withdrawal retroflexion showed no internal lesions. The scope was removed. The patient was transferred to the recovery room in good condition.
== END 2021-02-07 09:35 | disposition home or self-care (01) ==
LOC: SDC 05:49
PROVIDERS: ATTEND Family Medicine
DX: K21.9 Gastro-esophageal reflux disease without esophagitis (principal); Z86.010 Personal history of colon polyps; E11.9 Type 2 diabetes mellitus without complications; Z79.899 Other long term (current) drug therapy; Z79.4 Long term (current) use of insulin
CPT/HCPCS: 82947

== ENCOUNTER 2021-11-14 10:03 | Emergency (ER) | payer MEDICARE ==
--- NOTE | 2021-11-14 10:22 | ERPHSYRPT ---
- History of Present Illness Time Seen by Provider: 11/14/21 10:18 Historian: patient, EMS Exam Limitations: no limitations Physician History: Patient is a 61-year-old white male who presents by ambulance with a complaint of pressure-like pain in his chest which started this morning. EMS reported their twelve-lead EKG was normal and blood sugar was 87. The patient says that he has been short of breath he did have some diaphoresis and some nausea but no vomiting.He states he has never had a heart attack but does have a history of congestive heart failure. He was given for 81 mg aspirin in route by EMS and 4 of [facility]. He is an insulin-dependent diabetic he has no smoking history family history is positive hyperlipidemia positive hypertension negative. Timing/Duration: today Activities at Onset: none Quality: pressure Location: substernal Chest Pain Radiation: arm (Left) Severity of Pain-Max: moderate Severity of Pain-Current: mild Modifying Factors: Improves With: nothing Associated Symptoms: nausea, shortness of breath Nitro Today/Relief: no nitro taken today Aspirin Treatment Today: 81 mg x 4 Allergies/Adverse Reactions: No Known Drug Allergies Allergy (Verified 11/14/21 10:16) Home Medications: Pantoprazole Sodium [[id number]] 20 mg PO DAILY 09/23/14 [History] Insulin Glargine [Lantus Insulin] 14 unit SQ BREAKFAST 02/02/19 [History] Insulin Glargine [Lantus Insulin] 40 unit SQ HS 02/02/19 [History] Insulin Regular, Human [Novolin R] 16 units SQ BREAKFAST 02/02/19 [History] Insulin Regular, Human [Novolin R] 18 units SQ LUNCH 02/02/19 [History] Insulin Regular, Human [Novolin R] 20 units SQ DINNER 02/02/19 [History] Pramipexole Di-HCl [Pramipexole Dihydrochloride] 0.25 mg PO HS 02/02/19 [History ] lamoTRIgine [Lamotrigine] 25 mg PO BID 02/02/19 [History] Latanoprost/Pf [Latanoprost 0.005% Eye Drop] 1 drop OP HS 05/30/20 [History] Sertraline HCl 50 mg [Zoloft 50 mg Tablet] 50 mg PO DAILY 01/30/21 [History] acetaZOLAMIDE [Acetazolamide ER] 500 mg PO BID 01/30/21 [History] Lisinopril 5 mg [Zestril 5 MG] 2.5 mg PO DAILY 11/14/21 [History] Hx Tetanus, Diphtheria Vaccination/Date Given: No Hx Influenza Vaccination/Date Given: Yes Hx Pneumococcal Vaccination/Date Given: Yes - Review of Systems Constitutional: No Fever, No Chills Eyes: No Symptoms Ears, Nose, & Throat: No Symptoms Respiratory: Dyspnea, Dyspnea on Exertion (ROB), No Cough Cardiac: Chest Pain, No Edema, No Syncope Abdominal/Gastrointestinal: Nausea, No Abdominal Pain, No Vomiting, No Diarrhea Genitourinary Symptoms: No Dysuria Musculoskeletal: No Back Pain, No Neck Pain Skin: No Rash Neurological: No Dizziness, No Focal Weakness, No Sensory Changes Psychological: No Symptoms Endocrine: No Symptoms All Other Systems: Reviewed and Negative - Past Medical History Pertinent Past Medical History: Yes Neurological History: No Pertinent History ENT History: Cataracts, Glaucoma Cardiac History: No Pertinent History Respiratory History: No Pertinent History Endocrine Medical History: Diabetes Type II Musculoskeletal History: Osteoarthritis GI Medical History: GERD, Gallbladder Disease History: No Pertinent History Psycho-Social History: Depression Male Reproductive Disorders: No Pertinent History Other Medical History: OSTEOMYELITIS - Past Surgical History Past Surgical History: Yes Neuro Surgical History: No Pertinent History Cardiac: No Pertinent History Respiratory: No Pertinent History Gastrointestinal: Cholecystectomy Genitourinary: No Pertinent History Musculoskeletal: Amputation Male Surgical History: No Pertinent History Other Surgical History: both feet toes amputation, colonoscopy, EGD, polyp removed - Social History Smoking Status: Never smoker Exposure to second hand smoke: No Drug Use: none Patient Lives Alone: No - Nursing Vital Signs Nursing Vital Signs: Initial Vital Signs Temperature 98.1 F 11/14/21 10:04 Pulse Rate 75 11/14/21 10:04 Respiratory Rate 24 11/14/21 10:04 Blood Pressure 115/70 11/14/21 10:04 O2 Sat by Pulse Oximetry 96 11/14/21 10:04 Pain Scale Pain Intensity 2 - Physical Exam General Appearance: no apparent distress, alert Eye Exam: PERRL/EOMI, eyes nml inspection Ears, Nose, Throat Exam: normal ENT inspection, moist mucous membranes Neck Exam: normal inspection, non-tender, supple, full range of motion Respiratory Exam: normal breath sounds, lungs clear, No respiratory distress Cardiovascular Exam: regular rate/rhythm, normal heart sounds Gastrointestinal/Abdomen Exam: soft, No tenderness, No mass Back Exam: normal inspection, No CVA tenderness, No vertebral tenderness Extremity Exam: normal inspection, normal range of motion Neurologic Exam: alert, oriented x 3, cooperative, normal mood/affect, sensation nml, No motor deficits Skin Exam: normal color, warm, dry SpO2 Interpretation: normal SpO2: 98 O2 Delivery: Room Air - Course Nursing assessment & vital signs reviewed: Yes EKG Interpreted by Me: RATE (72), Sinus Rhythm, NORMAL AXIS, NORMAL INTERVALS, NORMAL QRS, NORMAL ST-T - Radiology Exams Chest X-ray Interpretation: Interpreted by me, Negative Ordered Tests: Active Orders 24 hr Category Date Time Status Corn Lab Technician STAT Care 11/14/21 10:09 Active EKG-ER Only STAT Care 11/14/21 10:08 Active IV Insertion STAT Care 11/14/21 10:08 Active CHEST 1 VIEW (PORTABLE) Stat Exams 11/14/21 12:12 Completed CBC W DIFF Stat Lab 11/14/21 10:30 Completed CMP Stat Lab 11/14/21 10:30 Completed D-DIMER QUANTITATIVE Stat Lab 11/14/21 10:30 Completed LIPASE Stat Lab 11/14/21 10:30 Completed Lactic Acid Stat Lab 11/14/21 10:35 Completed MAGNESIUM Stat Lab 11/14/21 10:30 Completed NT PRO BNP Stat Lab 11/14/21 10:30 Completed PROTIME WITH INR Stat Lab 11/14/21 10:30 Completed PTT Stat Lab 11/14/21 10:30 Completed TROPONIN Q3H Lab 11/14/21 10:30 Completed TROPONIN Q3H Lab 11/14/21 13:08 Completed TROPONIN Q3H Lab 11/14/21 16:15 Ordered TROPONIN Q3H Lab 11/14/21 19:15 Ordered TROPONIN Q3H Lab 11/14/21 22:15 Ordered UA W/RFX CULTURE Stat Lab 11/14/21 13:39 Ordered Medication Summary Discontinued Medications Generic Name Dose Route Start Last Admin Trade Name Freq PRN Reason Stop Dose Admin Fentanyl Citrate 50 mcg 11/14/21 10:08 11/14/21 10:27 Fentanyl Citrate 100 Mcg/2 Ml* Vial IV 11/14/21 10:09 50 mcg STAT ONE Administration Fentanyl Citrate Confirm 11/14/21 10:26 Fentanyl Citrate 100 Mcg/2 Ml* Vial Administered 11/14/21 10:27 Dose 100 mcg .ROUTE .STK-MED ONE Lab/Rad Data: Laboratory Result Diagrams 11/14/21 10:30 11/14/21 10:30 Laboratory Results 11/14/21 11/14/21 11/14/21 Range/Units 13:08 10:35 10:30 WBC (4.0-10.5) x10^3/uL RBC (4.1-5.6) x10^6/uL Hgb (12.5-18.0) g/dL Hct (42-50) % MCV (78-100) fL MCH (26-32) pg MCHC (32-36) g/dL RDW (11.5-14.0) % Plt Count (150-450) x10^3/uL MPV (7.5-11.0) fL Gran % (36.0-66.0) % Immature Gran % (Auto) (0.00-0.4) % Nucleat RBC Rel Count (0.00-0.1) % Eos # (Auto) (0-0.5) x10^3/uL Immature Gran # (Auto) (0.00-0.03) x10^3u/L Absolute Lymphs (auto) (1.0-4.6) x10^3/uL Absolute Monos (auto) (0.0-1.3) x10^3/uL Absolute Nucleated RBC (0.00-0.01) x10^3u/L Lymphocytes % (24.0-44.0) % Monocytes % (0.0-12.0) % Eosinophils % (0.00-5.0) % Basophils % (0.0-0.4) % Absolute Granulocytes (1.4-6.9) x10^3/uL Basophils # (0-0.4) x10^3/uL PT (9.4-12.5) SECONDS INR (0.8-3.0) APTT (25.1-36.5) SECONDS D-Dimer (0.0-0.50) ng/mL Sodium (137-145) mmol/L Potassium (3.5-5.1) mmol/L Chloride (98-107) mmol/L Carbon Dioxide (22-30) mmol/L Anion Gap (5-15) MEQ/L BUN (9-20) mg/dL Creatinine (0.66-1.25) mg/dL Estimated GFR ML/MIN Glucose (74-106) mg/dL Lactic Acid 1.2 (0.4-2.0) Calcium (8.4-10.2) mg/dL Magnesium (1.6-2.3) mg/dL Total Bilirubin (0.2-1.3) mg/dL AST (17-59) U/L ALT (0-50) U/L Alkaline Phosphatase (38-126) U/L Troponin I < 0.012 < 0.012 (0.000-0.034) ng/mL NT-Pro-B Natriuret Pep (0-900) pg/mL Serum Total Protein (6.3-8.2) g/dL Albumin (3.5-5.0) g/dL Lipase (23-300) U/L 11/14/21 11/14/21 11/14/21 Range/Units 10:30 10:30 10:30 WBC 5.0 (4.0-10.5) x10^3/uL RBC 4.37 (4.1-5.6) x10^6/uL Hgb 12.7 (12.5-18.0) g/dL Hct 40.2 L (42-50) % MCV 92.0 (78-100) fL MCH 29.1 (26-32) pg MCHC 31.6 L (32-36) g/dL RDW 15.2 H (11.5-14.0) % Plt Count 182 (150-450) x10^3/uL MPV 9.4 (7.5-11.0) fL Gran % 67.7 H (36.0-66.0) % Immature Gran % (Auto) 0.2 (0.00-0.4) % Nucleat RBC Rel Count 0.0 (0.00-0.1) % Eos # (Auto) 0.07 (0-0.5) x10^3/uL Immature Gran # (Auto) 0.01 (0.00-0.03) x10^3u/L Absolute Lymphs (auto) 1.13 (1.0-4.6) x10^3/uL Absolute Monos (auto) 0.36 (0.0-1.3) x10^3/uL Absolute Nucleated RBC 0.00 (0.00-0.01) x10^3u/L Lymphocytes % 22.5 L (24.0-44.0) % Monocytes % 7.2 (0.0-12.0) % Eosinophils % 1.4 (0.00-5.0) % Basophils % 1.0 (0.0-0.4) % Absolute Granulocytes 3.40 (1.4-6.9) x10^3/uL Basophils # 0.05 (0-0.4) x10^3/uL PT 11.0 (9.4-12.5) SECONDS INR 1.04 (0.8-3.0) APTT 26.8 (25.1-36.5) SECONDS D-Dimer 0.23 (0.0-0.50) ng/mL Sodium 142 (137-145) mmol/L Potassium 3.8 (3.5-5.1) mmol/L Chloride 113 H (98-107) mmol/L Carbon Dioxide 18 L (22-30) mmol/L Anion Gap 14.7 (5-15) MEQ/L BUN 20 (9-20) mg/dL Creatinine 0.79 (0.66-1.25) mg/dL Estimated GFR > 60.0 ML/MIN Glucose 125 H (74-106) mg/dL Lactic Acid (0.4-2.0) Calcium 8.3 L (8.4-10.2) mg/dL Magnesium 1.9 (1.6-2.3) mg/dL Total Bilirubin 0.40 (0.2-1.3) mg/dL AST 19 (17-59) U/L ALT 11 (0-50) U/L Alkaline Phosphatase 53 (38-126) U/L Troponin I (0.000-0.034) ng/mL NT-Pro-B Natriuret Pep 54.9 (0-900) pg/mL Serum Total Protein 6.5 (6.3-8.2) g/dL Albumin 3.6 (3.5-5.0) g/dL Lipase 93 (23-300) U/L - Progress Progress: improved Air Movement: good - Departure Departure Disposition: Home Clinical Impression: Atypical chest pain Condition: Stable Critical Care Time: No Referrals: GIAN ODOM [Primary Care Provider] - Follow up/PCP as directed Instructions: Chest Pain (DC) Prescriptions: Indomethacin 25 mg [Indocin 25 MG] 25 mg PO TID 10 Days #30
[2021-11-14] MEDS ORDERED: SUBLIMAZE 100 MCG/2 ML ONE (10:26)
[2021-11-14] MEDS: SUBLIMAZE 100 MCG/2 ML IV ONE (10:27)
[2021-11-14 10:53] LABS: D-DIMER QUANTITATIVE 0.23 ng/mL (0.0-0.50); INR 1.04 (0.8-3.0); PTT 26.8 SECONDS (25.1-36.5)
[2021-11-14 10:57] LABS: Basophil (Absolute #) 0.05 x10^3/uL (0-0.4); Eosinophil % 1.4 % (0.00-5.0); Eosinophil (Absolute #) 0.07 x10^3/uL (0-0.5); Hematocrit 40.2 % (42-50); Hemoglobin 12.7 g/dL (12.5-18.0); Lymphocyte (Absolute #) 1.13 x10^3/uL (1.0-4.6); Lymphocytes % 22.5 % (24.0-44.0); Mean Corpuscular Hemoglobin 29.1 pg (26-32); Mean Corpuscular Hgb Concent. 31.6 g/dL (32-36); Mean Platelet Volume 9.4 fL (7.5-11.0); Monocyte (Absolute #) 0.36 x10^3/uL (0.0-1.3); Monocytes % 7.2 % (0.0-12.0); Neutrophil % 67.7 % (36.0-66.0); Platelet Count 182 x10^3/uL (150-450); Red Blood Count 4.37 x10^6/uL (4.1-5.6); Red Cell Distribution Width 15.2 % (11.5-14.0)
[2021-11-14 11:31] LABS: ALBUMIN 3.6 g/dL (3.5-5.0); ALKALINE PHOSPHATASE 53 U/L (38-126); ANION GAP 14.7 MEQ/L (5-15); BLOOD UREA NITROGEN 20 mg/dL (9-20); CHLORIDE 113 mmol/L (98-107); Calcium 8.3 mg/dL (8.4-10.2); Carbon Dioxide 18 mmol/L (22-30); Creatinine 1 0.79 mg/dL (0.66-1.25); EST GLOMERULAR FILTRATION RATE > 60.0 ML/MIN; Glucose 125 mg/dL (74-106); LIPASE 93 U/L (23-300); MAGNESIUM 1.9 mg/dL (1.6-2.3); NT PRO BNP 54.9 pg/mL (0-900); Potassium 3.8 mmol/L (3.5-5.1); SGOT/AST 19 U/L (17-59); SGPT/ALT 11 U/L (0-50); SODIUM 142 mmol/L (137-145); Total Protein 6.5 g/dL (6.3-8.2)
--- NOTE | 2021-11-14 12:20 | XRAY ---
Indication: Chest pain. Comparison: August 03, 2016. Portable chest less inflated with new minimal bibasilar subsegmental atelectasis/scarring. Remaining heart and upper lungs unremarkable. Bony thorax intact again with mild degenerative changes.
[2021-11-14 13:57] VITALS: O2SAT 98
[2021-11-14 14:04] VITALS: BP 119/80; PULSE 67
[2021-11-14 14:48] LABS: Bacteria FEW /HPF (NEGATIVE); Epithelial Cells RARE /HPF (FEW); Mucus SLIGHT /HPF (NEGATIVE)
[2021-11-14 14:50] LABS: Appearance SLIGHTLY CLOUDY (CLEAR); Bilirubin NEGATIVE (NEGATIVE); Glucose NEGATIVE (NEGATIVE); Ketones NEGATIVE (NEGATIVE); Nitrite NEGATIVE (NEGATIVE); Ph 5.5 (5-6); Protein,Urine Dip NEGATIVE (Negative); RBC NEGATIVE Ery/ul (0-5); Specific Gravity 1.025 (1.005-1.025); Urine Cultured Indicated? YES; Urobilinogen 0.2 mg/dL (0-1)
[2021-11-14 15:12] LABS: Dipstick done @ ? MAIN LAB
== END 2021-11-14 14:13 | disposition home or self-care (01) ==
LOC: ED 10:03
DX: R07.89 Other chest pain (principal); R06.02 Shortness of breath; R11.0 Nausea; E11.9 Type 2 diabetes mellitus without complications; Z79.4 Long term (current) use of insulin; Z79.899 Other long term (current) drug therapy
CPT/HCPCS: 36000; 36415; 71045; 80053; 81015; 83605; 83690; 83735; 83880; 84484; 85025; 85379; 85610; 85730; 87077; 87086; 87186; 93005; 93041; 96374; 96375; 99284; J3010

== ENCOUNTER 2022-04-10 05:52 | Day surgery (SDC) | payer MEDICARE ==
[2022-04-10] MEDS ORDERED: Lactated Ringers 1,000 ML IV SCH (06:30)
[2022-04-10] MEDS ORDERED: Xylocaine-Mpf 2% 5 Ml Vial ONE (07:37)
[2022-04-10] MEDS ORDERED: DIPRIVAN 200 MG/20 ML IV ONE (07:37)
[2022-04-10 08:20] VITALS: BP 122/76; PULSE 79; O2SAT 95
--- NOTE | 2022-04-10 09:44 | OP ---
SURGERY DATE/TIME: 04/10/2022 1040 PREOPERATIVE DIAGNOSIS: Dysphagia. POSTOPERATIVE DIAGNOSIS: Small hiatal hernia. PROCEDURE: EGD. SURGEON: Binu Bhatt M.D. ANESTHESIA: MAC by Raul Mooney CRNA. ESTIMATED BLOOD LOSS: None. SPECIMENS: None. DESCRIPTION OF PROCEDURE: After informed written consent was obtained, the patient was taken to the endoscopy suite. He was placed in the left lateral decubitus position and a bite block inserted. Anesthesia was titrated to the desired level of consciousness. The endoscope was inserted into the posterior oropharynx. Under direct visualization the esophagus was easily traversed. The gastroesophageal junction appeared normal. Upon entering into the gastric cavity there was normal rugated gastric mucosa. No obvious ulcerations or lesions were encountered. The pylorus was traversed and the first and second portions of the duodenum had a normal mucosal appearance. Upon retroflexion a small hiatal hernia was appreciable. No other abnormalities were seen. Upon withdrawal again the gastroesophageal junction appeared normal. In the distal esophagus there were no obvious tight strictures or mucosal abnormalities. Upon withdrawal all mucosal structures appeared within normal limits. The scope was removed and the patient was transferred to the recovery room in good condition. I recommend proton pump inhibitor therapy and diet modification.
== END 2022-04-10 08:38 | disposition home or self-care (01) ==
LOC: SDC 05:52
PROVIDERS: ATTEND Family Medicine
DX: K44.9 Diaphragmatic hernia without obstruction or gangrene (principal); R13.10 Dysphagia, unspecified; E11.9 Type 2 diabetes mellitus without complications
CPT/HCPCS: 82947; J2704

== ENCOUNTER 2022-09-06 01:19 | Observation (INO) | payer MEDICARE ==
[2022-09-06] MEDS ORDERED: Zofran 4 MG/2 ML VIAL IV ONE ×2 (01:58→07:53)
[2022-09-06] MEDS ORDERED: Zofran 4 MG/2 ML VIAL ONE (02:32)
[2022-09-06 03:06] LABS: Absolute Neutrophil Ct (ANC) 9.41 x10^3/uL (1.4-6.9); BASOPHIL % 0.2 % (0.0-0.4); Basophil (Absolute #) 0.02 x10^3/uL (0-0.4); Eosinophil (Absolute #) 0 x10^3/uL (0-0.5); Hematocrit 43.7 % (42-50); Hemoglobin 13.7 g/dL (12.5-18.0); IMMATURE GRAN # 0.03 x10^3u/L (0.00-0.03); IMMATURE GRAN % 0.3 % (0.00-0.4); Lymphocytes % 3.8 % (24.0-44.0); Mean Cell Volume 89.4 fL (78-100); Mean Corpuscular Hgb Concent. 31.4 g/dL (32-36); Mean Platelet Volume 8.6 fL (7.5-11.0); Monocyte (Absolute #) 0.54 x10^3/uL (0.0-1.3); Monocytes % 5.2 % (0.0-12.0); Neutrophil % 90.5 % (36.0-66.0); Platelet Count 153 x10^3/uL (150-450); Red Blood Count 4.89 x10^6/uL (4.1-5.6); Red Cell Distribution Width 13.3 % (11.5-14.0); White Blood Count 10.4 x10^3/uL (4.0-10.5)
--- NOTE | 2022-09-06 03:06 | ERPHSYRPT ---
- History of Present Illness Time Seen by Provider: 09/06/22 02:00 Historian: patient Exam Limitations: no limitations Patient Subjective Stated Complaint: pt states he has been having pain in h is rt lower abd. denies diarrhea, denies constipation. pt fell while going down stairs to meet ems. c/o pain in rt his and rt lower back from fall. Triage Nursing Assessment: pt alert and oriented, answers questions approp. pt arrive [facility]. pt c/o pain in rt hip and rt back with movement. skin warm and dry. respirations nonlabored. abd soft, pt reports tenderness in rt lower abd. bowel sounds hypo x4 quads. Physician History: Patient is a 62-year-old male presents to our ED via EMS for evaluation of right lower quadrant pain. Patient started about 4 hours prior to his arrival to our ED. Pain described as an ache that is localized. No radiation. Patient has a history of diabetes. Patient is a type II diabetic and has been sick for approximately 30 years. Patient has had bilateral forefoot amputations. Patient's primary care doctor is Dr. Fry. Pain described as an ache that is localized. No radiation. Pain reproduced with palpation of the right lower quadrant. Pain improved with rest. Patient reports some pain to his right hip and back. Patient states he tripped on a step while walking outside to meet the ambulance. No BHT or LOC. No neck pain. Cervical spine cleared clinically. Patient voices no other complaints or concerns at this time. Patient's last meal was approximately 8 PM yesterday evening Portions of this note were created with voice recognition technology. There may be grammatical, spelling, punctuation or sound alike errors Timing/Duration: today Activities at Onset: none Quality: aching Abdominal Pain Onset Location: RLQ Pain Radiation: no radiation Severity of Pain-Max: moderate Severity of Pain-Current: mild Modifying Factors: Improves With: nothing Associated Symptoms: denies symptoms Previous symptoms: no prior history Allergies/Adverse Reactions: No Known Drug Allergies Allergy (Verified 09/06/22 01:44) Home Medications: Pantoprazole Sodium [[id number]] 20 mg PO DAILY 09/23/14 [History] Insulin Glargine [Lantus Insulin] 14 unit SQ BREAKFAST 02/02/19 [History] Insulin Regular, Human [Novolin R] 14 units SQ DINNER 02/02/19 [History] Insulin Regular, Human [Novolin R] 16 units SQ LUNCH 02/02/19 [History] Pramipexole Di-HCl [Pramipexole Dihydrochloride] 0.5 mg PO HS 02/02/19 [History] Latanoprost/Pf [Latanoprost 0.005% Eye Drop] 1 drop OP HS 05/30/20 [History] Sertraline HCl 50 mg [Zoloft 50 mg Tablet] 100 mg PO DAILY 01/30/21 [History] acetaZOLAMIDE [Acetazolamide ER] 500 mg PO BID 01/30/21 [History] Lisinopril 5 mg [Zestril 5 MG] 2.5 mg PO DAILY 11/14/21 [History] Atorvastatin Calcium 40 mg PO DAILY 03/21/22 [History] Empagliflozin [Jardiance] 10 mg PO DAILY 03/21/22 [History] Insulin Glargine [Lantus Insulin] 16 units SQ DAILY 03/21/22 [History] Insulin Glargine [Lantus Insulin] 35 units SQ HS 03/21/22 [History] Hx Tetanus, Diphtheria Vaccination/Date Given: Yes Hx Influenza Vaccination/Date Given: Yes Hx Pneumococcal Vaccination/Date Given: Yes Immunizations Up to Date: Yes Travel Risk - International Travel Have you traveled outside of the country in past 3 weeks: No - Coronavirus Screening Are you exhibiting any of the following symptoms?: No Close contact with a COVID-19 positive Pt in past 14-21 Days: No - Vaccine Status Have you recieved a Covid-19 vaccination: Yes Medical Clerk: [email or web address] - Vaccination Dates Date of 2cond Vaccination (if applicable): 08/2020 - Review of Systems Constitutional: No Symptoms, No Fever, No Chills Eyes: No Symptoms Ears, Nose, & Throat: No Symptoms Respiratory: No Symptoms, No Cough, No Dyspnea Cardiac: No Symptoms, No Chest Pain, No Edema, No Syncope Abdominal/Gastrointestinal: No Symptoms, No Abdominal Pain, No Nausea, No Vomiting, No Diarrhea Genitourinary Symptoms: No Symptoms, No Dysuria Musculoskeletal: No Symptoms, No Back Pain, No Neck Pain Skin: No Symptoms, No Rash Neurological: No Symptoms, No Dizziness, No Focal Weakness, No Sensory Changes Psychological: No Symptoms Endocrine: No Symptoms Hematologic/Lymphatic: No Symptoms Immunological/Allergic: No Symptoms All Other Systems: Reviewed and Negative - Past Medical History Pertinent Past Medical History: Yes Neurological History: No Pertinent History ENT History: Cataracts, Glaucoma Cardiac History: No Pertinent History, Congestive Heart Failure Respiratory History: No Pertinent History Endocrine Medical History: Diabetes Type II Musculoskeletal History: Osteoarthritis GI Medical History: GERD, Gallbladder Disease History: No Pertinent History Psycho-Social History: Anxiety, Depression Male Reproductive Disorders: No Pertinent History Other Medical History: OSTEOMYELITIS - Past Surgical History Past Surgical History: Yes Neuro Surgical History: No Pertinent History Cardiac: No Pertinent History Respiratory: No Pertinent History Gastrointestinal: Cholecystectomy Genitourinary: No Pertinent History Musculoskeletal: Amputation Male Surgical History: No Pertinent History Other Surgical History: both feet toes amputation, colonoscopy, EGD, polyp removed - Social History Smoking Status: Never smoker Exposure to second hand smoke: No Drug Use: none Patient Lives Alone: No - Nursing Vital Signs Nursing Vital Signs: Initial Vital Signs Temperature 98.5 F 09/06/22 01:27 Pulse Rate 93 H 09/06/22 01:27 Respiratory Rate 16 09/06/22 01:27 Blood Pressure 131/67 09/06/22 01:27 O2 Sat by Pulse Oximetry 98 09/06/22 01:27 Pain Scale Pain Intensity 8 - Physical Exam General Appearance: no apparent distress, alert Eye Exam: PERRL/EOMI, eyes nml inspection Ears, Nose, Throat Exam: normal ENT inspection, pharynx normal, moist mucous membranes Neck Exam: normal inspection, non-tender, supple, full range of motion Respiratory Exam: normal breath sounds, lungs clear, airway intact, No respiratory distress Cardiovascular Exam: regular rate/rhythm, normal heart sounds, normal peripheral pulses Gastrointestinal/Abdomen Exam: soft, other (Tenderness palpation right lower quadrant.), No tenderness, No mass Back Exam: normal inspection, normal range of motion, No CVA tenderness, No vertebral tenderness Extremity Exam: normal inspection, normal range of motion, pelvis stable Neurologic Exam: alert, oriented x 3, cooperative, normal mood/affect, sensation nml, No motor deficits Skin Exam: normal color, warm, dry Lymphatic Exam: No adenopathy SpO2 Interpretation: normal SpO2: 100 O2 Delivery: Room Air - Course Nursing assessment & vital signs reviewed: Yes - Radiology Exams Abdomen X-ray Interpretation: Teleradiologist Report Ordered Tests: Active Orders 24 hr Category Date Time Status EKG-ER Only STAT Care 09/06/22 03:56 Active IV Insertion STAT Care 09/06/22 01:58 Active NPO Diet 09/06/22 03:50 Active ABDOMEN AND PELVIS W/0 CONTRAS [CT] Stat Exams 09/06/22 02:24 Taken CBC W DIFF Stat Lab 09/06/22 03:03 Completed CMP Stat Lab 09/06/22 03:03 Completed Lactic Acid Stat Lab 09/06/22 03:30 Completed PROTIME WITH INR Stat Lab 09/06/22 03:55 Ordered PTT Stat Lab 09/06/22 03:55 Ordered UA W/RFX UR CULTURE Stat Lab 09/06/22 01:59 Ordered Transfer Order Routine Transfer 09/06/22 Ordered Medication Summary Generic Name Dose Route Start Last Admin Trade Name Freq PRN Reason Stop Dose Admin Levofloxacin/Dextrose 500 mg in 100 mls @ 100 mls/hr 09/06/22 03:12 09/06/22 03:25 Levofloxacin 500mg/100ml D5w IV 09/06/22 04:11 100 ml/hr STAT STA 100 mls/hr Administration Sodium Chloride 1,000 mls @ 100 mls/hr 09/06/22 04:00 Sodium Chloride 0.9% 1000 Ml IV 10/06/22 03:59 .Q10H MON[place] Discontinued Medications Generic Name Dose Route Start Last Admin Trade Name Freq PRN Reason Stop Dose Admin Metronidazole 500 mg in 100 mls @ 200 mls/hr 09/06/22 03:12 09/06/22 03:26 Flagyl 500 Mg Ivpb IV 09/06/22 03:41 200 ml/hr STAT STA 200 mls/hr Administration Levofloxacin/Dextrose Confirm 09/06/22 03:21 Levofloxacin 500mg/100ml D5w Administered 09/06/22 03:22 Dose 500 mg in 100 mls @ ud IV .STK-MED ONE Metronidazole Confirm 09/06/22 03:21 Flagyl 500 Mg Ivpb Administered 09/06/22 03:22 Dose 500 mg in 100 mls @ ud IV .STK-MED ONE Morphine Sulfate 4 mg 09/06/22 03:25 09/06/22 03:27 Morphine Sulfate 4 Mg/Ml Injection IV 09/06/22 03:26 4 mg STAT ONE Administration Morphine Sulfate Confirm 09/06/22 03:27 Morphine Sulfate 4 Mg/Ml Injection Administered 09/06/22 03:28 Dose 4 mg .ROUTE .STK-MED ONE Ondansetron HCl 4 mg 09/06/22 01:58 09/06/22 02:34 Ondansetron Hcl 4 Mg/2 Ml Vial IV 09/06/22 01:59 4 mg STAT ONE Administration Ondansetron HCl Confirm 09/06/22 02:32 Ondansetron Hcl 4 Mg/2 Ml Vial Administered 09/06/22 02:33 Dose 4 mg .ROUTE .STK-MED ONE Lab/Rad Data: Laboratory Result Diagrams 09/06/22 03:03 09/06/22 03:03 Laboratory Results 09/06/22 09/06/22 09/06/22 Range/Units 03:30 03:03 03:03 WBC 10.4 (4.0-10.5) x10^3/uL RBC 4.89 (4.1-5.6) x10^6/uL Hgb 13.7 (12.5-18.0) g/dL Hct 43.7 (42-50) % MCV 89.4 (78-100) fL MCH 28.0 (26-32) pg MCHC 31.4 L (32-36) g/dL RDW 13.3 (11.5-14.0) % Plt Count 153 (150-450) x10^3/uL MPV 8.6 (7.5-11.0) fL Gran % 90.5 H (36.0-66.0) % Immature Gran % (Auto) 0.3 (0.00-0.4) % Nucleat RBC Rel Count 0.0 (0.00-0.1) % Eos # (Auto) 0 (0-0.5) x10^3/uL Immature Gran # (Auto) 0.03 (0.00-0.03) x10^3u/L Absolute Lymphs (auto) 0.40 L (1.0-4.6) x10^3/uL Absolute Monos (auto) 0.54 (0.0-1.3) x10^3/uL Absolute Nucleated RBC 0.00 (0.00-0.01) x10^3u/L Lymphocytes % 3.8 L (24.0-44.0) % Monocytes % 5.2 (0.0-12.0) % Eosinophils % 0.0 (0.00-5.0) % Basophils % 0.2 (0.0-0.4) % Absolute Granulocytes 9.41 H (1.4-6.9) x10^3/uL Basophils # 0.02 (0-0.4) x10^3/uL Sodium 140 (137-145) mmol/L Potassium 4.2 (3.5-5.1) mmol/L Chloride 103 (98-107) mmol/L Carbon Dioxide 29 (22-30) mmol/L Anion Gap 12.1 (5-15) MEQ/L BUN 20 (9-20) mg/dL Creatinine 0.66 (0.66-1.25) mg/dL Estimated GFR > 60.0 ML/MIN Glucose 190 H (74-106) mg/dL Lactic Acid 1.1 (0.4-2.0) Calcium 8.5 (8.4-10.2) mg/dL Total Bilirubin 0.80 (0.2-1.3) mg/dL AST 22 (17-59) U/L ALT 16 (0-50) U/L Alkaline Phosphatase 69 (38-126) U/L Serum Total Protein 7.1 (6.3-8.2) g/dL Albumin 3.9 (3.5-5.0) g/dL - Progress Progress: improved Progress Note: Case discussed with Dr. Lei Tellez. Patient will be admitted. Appendectomy planned for 6 AM. Antibiotics initiated. Patient will be admitted to the hospitalist. 09/06/22 03:43 Patient is a 62-year-old male presents to our ED for evaluation of right lower quadrant pain. CT scan reveals an appendicitis. Laboratory work-up includes CBC, CMP,. No leukocytosis. Basic labs are within normal limits. COVID test n egative. Lactic acid negative. Urinalysis negative. Patient received a dose of Levaquin and Flagyl antibiotic prophylaxis. Morphine and Zofran administered for pain relief and nausea. Patient reassessed. Pain improved. Patient agrees to admission at [facility] for further evaluation. Patient is aware that he has appendicitis and that he will require an appendectomy for definitive management. Patient has a history of type 2 diabetes. He has had bilateral forefoot amputations. Physical exam reveals right lower quadrant pain/tenderness. Complexity of problem addressed is moderate. New diagnosis with uncertain prognosis. No critical care time. Complexity of data reviewed and analyzed is moderate. Laboratory studies reviewed and analyzed. CT scan report reviewed. Findings discussed with radiologist. Patient served as an independent historian. Risk of complication and or risk of morbidity/mortality of patient management is high. Patient will require hospitalization for appendectomy and management of pain. Patient's last meal was 8 PM yesterday evening. We will maintain patient n.p.o. 09/06/22 03:[address] Sahu who accepts admission to observation. Discussed with Dr.: Other (Lei Tellez of general surgery. Patient will have an appendectomy at 6 AM this morning.) Will see patient in: hospital (observation) Counseled pt/family regarding: lab results, diagnosis, rad results - Departure Departure Disposition: Observation Clinical Impression: Appendicitis Condition: Stable Critical Care Time: No Referrals: GIAN ODOM [Primary Care Provider] - Follow up/PCP as directed
[2022-09-06] MEDS ORDERED: Levofloxacin 500MG/100ML D5W 500 MG/100 ML BAG IV STA (03:12)
[2022-09-06] MEDS ORDERED: FLAGYL 500 MG IVPB 500 MG/100 ML BAG IV STA (03:12)
[2022-09-06] MEDS ORDERED: Levofloxacin 500MG/100ML D5W 500 MG/100 ML BAG IV ONE (03:21)
[2022-09-06] MEDS ORDERED: FLAGYL 500 MG IVPB 500 MG/100 ML BAG IV ONE (03:21)
[2022-09-06] MEDS ORDERED: MORPHINE SULFATE 4 MG INJ IV ONE (03:25)
[2022-09-06] MEDS ORDERED: MORPHINE SULFATE 4 MG INJ ONE (03:27)
[2022-09-06 03:29] LABS: ALBUMIN 3.9 g/dL (3.5-5.0); ALKALINE PHOSPHATASE 69 U/L (38-126); ANION GAP 12.1 MEQ/L (5-15); BLOOD UREA NITROGEN 20 mg/dL (9-20); CHLORIDE 103 mmol/L (98-107); Calcium 8.5 mg/dL (8.4-10.2); Carbon Dioxide 29 mmol/L (22-30); Creatinine 1 0.66 mg/dL (0.66-1.25); EST GLOMERULAR FILTRATION RATE > 60.0 ML/MIN; Glucose 190 mg/dL (74-106); Potassium 4.2 mmol/L (3.5-5.1); SGOT/AST 22 U/L (17-59); SGPT/ALT 16 U/L (0-50); SODIUM 140 mmol/L (137-145); Total Protein 7.1 g/dL (6.3-8.2)
[2022-09-06] MEDS ORDERED: Sodium Chloride 0.9% 1000 ML 1,000 ML IV SCH (04:00)
[2022-09-06 04:20] LABS: PROTIME 10.9 SECONDS (9.4-12.5); PTT 25.3 SECONDS (25.1-36.5)
[2022-09-06] MEDS ORDERED: Sodium Chloride 0.9% 1000 ML 1,000 ML ONE (04:26)
[2022-09-06 04:36] LABS: Slide Review 1 YES
[2022-09-06 05:10] LABS: INFLUENZA A NEGATIVE (NEGATIVE); INFLUENZA B NEGATIVE (NEGATIVE); RESPIRATORY SYNCTIAL VIRUS NEGATIVE (NEGATIVE); SARS-CoV-2 Xpert Express NEGATIVE (NEGATIVE)
[2022-09-06] MEDS ORDERED: Sensorcaine 0.25% 10 ML ONE (05:36)
[2022-09-06] MEDS ORDERED: Lactated Ringers 1,000 ML IV ONE (05:48)
[2022-09-06] MEDS ORDERED: MEFOXIN 2 GM PREMIX** 2 GM/50 ML ML IV ONE (05:50)
[2022-09-06] MEDS ORDERED: DIPRIVAN 200 MG/20 ML IV ONE (05:53)
[2022-09-06] MEDS ORDERED: SUBLIMAZE 100 MCG/2 ML ONE (05:56)
--- NOTE | 2022-09-06 06:12 | PCM.CONS ---
History of Present Illness - Reason for Consult Chief Complaint: abd pain Consulting Provider: GAIL WILLIAMSON MD History of Present Illness: is a 62 year old male. hx per chart review and d/w pt pt with less than one day hx abd pain rlq. on the way to meet ems did have a ground fall. workup in ed without traumatic injury. ct with acute appy nonperf. pt c/o rlq pain. the hip is not really hurting anymore "Patient Subjective Stated Complaint: pt states he has been having pain in h is rt lower abd. denies diarrhea, denies constipation. pt fell while going down stairs to meet ems. c/o pain in rt his and rt lower back from fall. Triage Nursing Assessment: pt alert and oriented, answers questions approp. pt arrive per ambulance and transfers to stretcher with assist of 2. pt c/o pain in rt hip and rt back with movement. skin warm and dry. respirations nonlabored. abd soft, pt reports tenderness in rt lower abd. bowel sounds hypo x4 quads. Physician History: Patient is a 62-year-old male presents to our ED via EMS for evaluation of right lower quadrant pain. Patient started about 4 hours prior to his arrival to our ED. Pain described as an ache that is localized. No radiation. Patient has a history of diabetes. Patient is a type II diabetic and has been sick for approximately 30 years. Patient has had bilateral forefoot amputations. Patient's primary care doctor is Dr. Fry. Pain described as an ache that is localized. No radiation. Pain reproduced with palpation of the right lower quadrant. Pain improved with rest. Patient reports some pain to his right hip and back. Patient states he tripped on a step while walking outside to meet the ambulance. No BHT or LOC. No neck pain. Cervical spine cleared clinically. Patient voices no other complaints or concerns at this time. Patient's last meal was approximately 8 PM yesterday evening Portions of this note were created with voice recognition technology. There may be grammatical, spelling, punctuation or sound alike errors Timing/Duration: today Activities at Onset: none Quality: aching Abdominal Pain Onset Location: RLQ Pain Radiation: no radiation Severity of Pain-Max: moderate Severity of Pain-Current: mild Modifying Factors: Improves With: nothing Associated Symptoms: denies symptoms Previous symptoms: no prior history Allergies/Adverse Reactions: No Known Drug Allergies Allergy (Verified 09/06/22 01:44) Home Medications: Pantoprazole Sodium [[id number]] 20 mg PO DAILY 09/23/14 [History] Insulin Glargine [Lantus Insulin] 14 unit SQ BREAKFAST 02/02/19 [History] Insulin Regular, Human [Novolin R] 14 units SQ DINNER 02/02/19 [History] Insulin Regular, Human [Novolin R] 16 units SQ LUNCH 02/02/19 [History] Pramipexole Di-HCl [Pramipexole Dihydrochloride] 0.5 mg PO HS 02/02/19 [History] Latanoprost/Pf [Latanoprost 0.005% Eye Drop] 1 drop OP HS 05/30/20 [History] Sertraline HCl 50 mg [Zoloft 50 mg Tablet] 100 mg PO DAILY 01/30/21 [History] acetaZOLAMIDE [Acetazolamide ER] 500 mg PO BID 01/30/21 [History] Lisinopril 5 mg [Zestril 5 MG] 2.5 mg PO DAILY 11/14/21 [History] Atorvastatin Calcium 40 mg PO DAILY 03/21/22 [History] Empagliflozin [Jardiance] 10 mg PO DAILY 03/21/22 [History] Insulin Glargine [Lantus Insulin] 16 units SQ DAILY 03/21/22 [History] Insulin Glargine [Lantus Insulin] 35 units SQ HS 03/21/22 [History] Hx Tetanus, Diphtheria Vaccination/Date Given: Yes Hx Influenza Vaccination/Date Given: Yes Hx Pneumococcal Vaccination/Date Given: Yes Immunizations Up to Date: Yes Travel Risk - International Travel Have you traveled outside of the country in past 3 weeks: No - Coronavirus Screening Are you exhibiting any of the following symptoms?: No Close contact with a COVID-19 positive Pt in past 14-21 Days: No - Vaccine Status Have you recieved a Covid-19 vaccination: Yes [employer]: [facility] - Vaccination Dates Date of 2cond Vaccination (if applicable): 08/2020 - Review of Systems Constitutional: No Symptoms, No Fever, No Chills Eyes: No Symptoms Ears, Nose, & Throat: No Symptoms Respiratory: No Symptoms, No Cough, No Dyspnea Cardiac: No Symptoms, No Chest Pain, No Edema, No Syncope Abdominal/Gastrointestinal: No Symptoms, No Abdominal Pain, No Nausea, No Vomiting, No Diarrhea Genitourinary Symptoms: No Symptoms, No Dysuria Musculoskeletal: No Symptoms, No Back Pain, No Neck Pain Skin: No Symptoms, No Rash Neurological: No Symptoms, No Dizziness, No Focal Weakness, No Sensory Changes Psychological: No Symptoms Endocrine: No Symptoms Hematologic/Lymphatic: No Symptoms Immunological/Allergic: No Symptoms All Other Systems: Reviewed and Negative - Past Medical History Pertinent Past Medical History: Yes Neurological History: No Pertinent History ENT History: Cataracts, Glaucoma Cardiac History: No Pertinent History, Congestive Heart Failure Respiratory History: No Pertinent History Endocrine Medical History: Diabetes Type II Musculoskeletal History: Osteoarthritis GI Medical History: GERD, Gallbladder Disease History: No Pertinent History Psycho-Social History: Anxiety, Depression Male Reproductive Disorders: No Pertinent History Other Medical History: OSTEOMYELITIS - Past Surgical History Past Surgical History: Yes Neuro Surgical History: No Pertinent History Cardiac: No Pertinent History Respiratory: No Pertinent History Gastrointestinal: Cholecystectomy Genitourinary: No Pertinent History Musculoskeletal: Amputation Male Surgical History: No Pertinent History Other Surgical History: both feet toes amputation, colonoscopy, EGD, polyp removed - Social History Smoking Status: Never smoker Exposure to second hand smoke: No Drug Use: none Patient Lives Alone: No Medications & Allergies Home Medications: Home Medication List Pantoprazole Sodium [[id number]] 20 mg PO DAILY 09/23/14 [History Confirmed 09/06/22] Insulin Glargine [Lantus Insulin] 14 unit SQ BREAKFAST 02/02/19 [History Confirmed 09/06/22] Insulin Regular, Human [Novolin R] 14 units SQ DINNER 02/02/19 [History Confirmed 04/10/22] Insulin Regular, Human [Novolin R] 16 units SQ LUNCH 02/02/19 [History Confirmed 09/06/22] Pramipexole Di-HCl [Pramipexole Dihydrochloride] 0.5 mg PO HS 02/02/19 [History Confirmed 09/06/22] Latanoprost/Pf [Latanoprost 0.005% Eye Drop] 1 drop OP HS 05/30/20 [History Confirmed 09/06/22] Sertraline HCl 50 mg [Zoloft 50 mg Tablet] 100 mg PO DAILY 01/30/21 [History Confirmed 09/06/22] Lisinopril 5 mg [Zestril 5 MG] 2.5 mg PO DAILY 11/14/21 [History Confirmed 09/06/22] Empagliflozin [Jardiance] 10 mg PO DAILY 03/21/22 [History Confirmed 09/06/22] Insulin Glargine [Lantus Insulin] 36 units SQ HS 03/21/22 [History Confirmed 09/06/22] Dorzolamide/Timolol/Pf [Dorzolamide-Timolol 2%-0.5%] 1 each OP TID 09/06/22 [History Confirmed 09/06/22] Allergies/Adverse Reactions: Allergies Allergy/AdvReac Type Severity Reaction Status Date / Time Latex, Natural Rubber Allergy Intermediate Rash Verified 09/06/22 06:00 - Past Medical History Past Medical History: Yes Neurological History: No Pertinent History ENT History: Cataracts, Glaucoma Cardiac History: No Pertinent History, Congestive Heart Failure Respiratory History: No Pertinent History Endocrine Medical History: Diabetes Type II Musculoskelatal History: Osteoarthritis GI Medical History: GERD, Gallbladder Disease History: No Pertinent History Pyscho-Social History: Anxiety, Depression Male Reproductive Disorders: No Pertinent History Comment: OSTEOMYELITIS - Past Surgical History Past Surgical History: Yes Neuro Surgical History: No Pertinent History Cardiac History: No Pertinent History Respiratory Surgery: No Pertinent History GI Surgical History: Cholecystectomy Genitourinary Surgical Hx: No Pertinent History Musculskeletal Surgical Hx: Amputation Male Surgical History: No Pertinent History Other Surgical History: both feet toes amputation, colonoscopy, EGD, polyp removed - Social History Smoking Status: Never smoker Exposure to second hand smoke: No Alcohol: None Drug Use: none - Physical Exam Vital Signs: Vital Signs - 24 hr Temp Pulse Resp BP Pulse Ox 09/06/22 05:58 98.5 F 78 16 114/66 96 09/06/22 05:00 78 114/66 96 09/06/22 04:04 100 09/06/22 04:00 82 119/66 98 09/06/22 03:00 88 132/68 99 09/06/22 02:19 80 122/68 100 09/06/22 01:27 98.5 F 93 H 16 131/67 98 General Appearance: no apparent distress Neurologic Exam: alert, oriented x 3 Eye Exam: eyes nml inspection, No scleral icterus Neck Exam: normal inspection Respiratory Exam: No respiratory distress Cardiovascular Exam: regular rate/rhythm Male Genitalia Exam: normal genitalia Rectal Exam: deferred Skin Exam: warm, dry (abd nd, soft, ttp rlq localized guarding rebound. le toe amps.) Results - Labs Lab/Micro Results: Lab Results-Last 24 Hours 09/06/22 09/06/22 09/06/22 Range/Units 03:00 03:03 03:03 WBC 10.4 (4.0-10.5) x10^3/uL RBC 4.89 (4.1-5.6) x10^6/uL Hgb 13.7 (12.5-18.0) g/dL Hct 43.7 (42-50) % MCV 89.4 (78-100) fL MCH 28.0 (26-32) pg MCHC 31.4 L (32-36) g/dL RDW 13.3 (11.5-14.0) % Plt Count 153 (150-450) x10^3/uL MPV 8.6 (7.5-11.0) fL Gran % 90.5 H (36.0-66.0) % Immature Gran % (Auto) 0.3 (0.00-0.4) % Nucleat RBC Rel Count 0.0 (0.00-0.1) % Eos # (Auto) 0 (0-0.5) x10^3/uL Immature Gran # (Auto) 0.03 (0.00-0.03) x10^3u/L Absolute Lymphs (auto) 0.40 L (1.0-4.6) x10^3/uL Absolute Monos (auto) 0.54 (0.0-1.3) x10^3/uL Absolute Nucleated RBC 0.00 (0.00-0.01) x10^3u/L Lymphocytes % 3.8 L (24.0-44.0) % Monocytes % 5.2 (0.0-12.0) % Eosinophils % 0.0 (0.00-5.0) % Basophils % 0.2 (0.0-0.4) % Absolute Granulocytes 9.41 H (1.4-6.9) x10^3/uL Basophils # 0.02 (0-0.4) x10^3/uL PT 10.9 (9.4-12.5) SECONDS INR 1.00 (0.8-3.0) APTT 25.3 (25.1-36.5) SECONDS Sodium 140 (137-145) mmol/L Potassium 4.2 (3.5-5.1) mmol/L Chloride 103 (98-107) mmol/L Carbon Dioxide 29 (22-30) mmol/L Anion Gap 12.1 (5-15) MEQ/L BUN 20 (9-20) mg/dL Creatinine 0.66 (0.66-1.25) mg/dL Estimated GFR > 60.0 ML/MIN Glucose 190 H (74-106) mg/dL Lactic Acid (0.4-2.0) Calcium 8.5 (8.4-10.2) mg/dL Total Bilirubin 0.80 (0.2-1.3) mg/dL AST 22 (17-59) U/L ALT 16 (0-50) U/L Alkaline Phosphatase 69 (38-126) U/L Serum Total Protein 7.1 (6.3-8.2) g/dL Albumin 3.9 (3.5-5.0) g/dL Influenza Type A Ag (NEGATIVE) Influenza Type B Ag (NEGATIVE) RSV (PCR) (NEGATIVE) SARS-CoV-2 (PCR) (NEGATIVE) Slides for Path Review YES 09/06/22 09/06/22 Range/Units 03:30 04:32 WBC (4.0-10.5) x10^3/uL RBC (4.1-5.6) x10^6/uL Hgb (12.5-18.0) g/dL Hct (42-50) % MCV (78-100) fL MCH (26-32) pg MCHC (32-36) g/dL RDW (11.5-14.0) % Plt Count (150-450) x10^3/uL MPV (7.5-11.0) fL Gran % (36.0-66.0) % Immature Gran % (Auto) (0.00-0.4) % Nucleat RBC Rel Count (0.00-0.1) % Eos # (Auto) (0-0.5) x10^3/uL Immature Gran # (Auto) (0.00-0.03) x10^3u/L Absolute Lymphs (auto) (1.0-4.6) x10^3/uL Absolute Monos (auto) (0.0-1.3) x10^3/uL Absolute Nucleated RBC (0.00-0.01) x10^3u/L Lymphocytes % (24.0-44.0) % Monocytes % (0.0-12.0) % Eosinophils % (0.00-5.0) % Basophils % (0.0-0.4) % Absolute Granulocytes (1.4-6.9) x10^3/uL Basophils # (0-0.4) x10^3/uL PT (9.4-12.5) SECONDS INR (0.8-3.0) APTT (25.1-36.5) SECONDS Sodium (137-145) mmol/L Potassium (3.5-5.1) mmol/L Chloride (98-107) mmol/L Carbon Dioxide (22-30) mmol/L Anion Gap (5-15) MEQ/L BUN (9-20) mg/dL Creatinine (0.66-1.25) mg/dL Estimated GFR ML/MIN Glucose (74-106) mg/dL Lactic Acid 1.1 (0.4-2.0) Calcium (8.4-10.2) mg/dL Total Bilirubin (0.2-1.3) mg/dL AST (17-59) U/L ALT (0-50) U/L Alkaline Phosphatase (38-126) U/L Serum Total Protein (6.3-8.2) g/dL Albumin (3.5-5.0) g/dL Influenza Type A Ag NEGATIVE (NEGATIVE) Influenza Type B Ag NEGATIVE (NEGATIVE) RSV (PCR) NEGATIVE (NEGATIVE) SARS-CoV-2 (PCR) NEGATIVE (NEGATIVE) Slides for Path Review - Radiology Impressions Radiology Exams & Impressions: Radiology Procedures Category Date Time Status ABDOMEN AND PELVIS W/0 CONTRAS [CT] Stat Exams 09/06/22 02:24 Taken Assessment/Plan (1) Appendicitis Current Visit: Yes Status: Acute Assessment & Plan: pt with ct scan confirmed acute appendicitis. images reviewed with dilated appy with periappendceal stranding/hazziness. -to OR for lap appy possibl open. Code(s): K37 - UNSPECIFIED APPENDICITIS
[2022-09-06] MEDS ORDERED: EXPAREL 133 MG/10 ML VIAL IJ ONE (06:46)
[2022-09-06] MEDS ORDERED: MEFOXIN 2 GM PREMIX** 2 GM/50 ML ML IV SCH (07:00)
[2022-09-06] MEDS ORDERED: SUBLIMAZE 250 MCG/5 ML IJ ONE (07:53)
[2022-09-06] MEDS ORDERED: Decadron 4 MG INJ IV ONE (07:53)
[2022-09-06] MEDS ORDERED: Quelicin Fliptop 200 MG/10 ML IV ONE (07:53)
[2022-09-06] MEDS ORDERED: Sensorcaine 0.25% 10 ML IJ ONE (07:53)
[2022-09-06] MEDS ORDERED: Ephedrine Sulfate 50 MG/ML IV ONE (07:53)
[2022-09-06] MEDS ORDERED: Zemuron 100 MG/10 ML IV ONE (07:53)
[2022-09-06] MEDS ORDERED: BRIDION 200MG/2ML IV ONE (07:53)
[2022-09-06] MEDS ORDERED: LIDOCAINE HCL 2% 100 MG/5 ML IJ ONE (07:53)
[2022-09-06 08:30] LABS: Appearance Clear (Clear); Bilirubin Negative (Negative); Blood Negative (Negative); Glucose, Urine >=1000 mg/dL (Negative); Ketones 15 (Negative); Leukocyte Esterase Negative (Negative); Nitrite Positive (Negative); Ph 6.5 (4.6-8.0); Protein,Urine Dip Trace (Negative); Specific Gravity >=1.030 (1.005-1.030); Urobilinogen 0.2 mg/dL (0.2)
[2022-09-06 08:48] LABS: Bacteria Many /HPF (None Seen); Epithelial Cells None Seen /HPF (None Seen); Hyaline Casts NONE SEEN /LPF (0-2); RBC 0-2 /HPF (0-5)
[2022-09-06 08:52] LABS: ADD URINE CULTURE? YES (NO)
--- NOTE | 2022-09-06 09:00 | XRAY ---
Indication: Right lower quadrant pain and vomiting. Right hip pain following fall. Multiple contiguous axial images obtained through the abdomen and pelvis without contrast. Comparison: September 07, 2020 Lung bases now demonstrates mild bilateral dependent atelectasis. No infiltrate or effusion. Heart not enlarged. Stomach again distended with food/fluid. Noncontrasted stomach and bowel loops nonobstructed. Appendix is now abnormally prominent up to 1.5 cm with periappendiceal stranding and small free fluid favoring acute appendicitis. No walled off fluid collection or free air.: Again demonstrates mild diffuse scattered colonic fecal debris throughout, more than before including rectum. Stable right renal parapelvic cyst and cholecystectomy. Remaining liver, pancreas, spleen, adrenal glands, kidneys, ureters, and bladder are unremarkable for noncontrast exam. Again mild aortoiliac calcifications without AAA. Osseous structures intact again with minimal degenerative changes throughout the spine. Impression: 1. New CT findings favoring acute appendicitis as detailed. No perforation. 2. Worsening mild diffuse fecal stasis with rectal impaction. 3. Again chronic findings including right renal cyst, arteriosclerotic disease, and chronic bony findings. Comment: Preliminary interpretation made by C. No critical discrepancy.
[2022-09-06 09:29] LABS: Hematocrit 42.7 % (42-50); Hemoglobin 13.4 g/dL (12.5-18.0); Mean Cell Volume 89.9 fL (78-100); Mean Corpuscular Hemoglobin 28.2 pg (26-32); Mean Corpuscular Hgb Concent. 31.4 g/dL (32-36); Mean Platelet Volume 9.1 fL (7.5-11.0); Platelet Count 154 x10^3/uL (150-450); Red Blood Count 4.75 x10^6/uL (4.1-5.6); Red Cell Distribution Width 13.2 % (11.5-14.0); White Blood Count 12.8 x10^3/uL (4.0-10.5)
[2022-09-06] MEDS ORDERED: [UNRECOGNIZED DRUG - OTHER] OP SCH (10:00)
[2022-09-06] MEDS ORDERED: JARDIANCE PO SCH (10:00)
[2022-09-06] MEDS ORDERED: ZOLOFT 50 MG TABLET PO SCH ×2 (10:00→19:36)
[2022-09-06] MEDS ORDERED: DORZOLAMIDE OP SCH (10:00)
[2022-09-06] MEDS ORDERED: DROPERETTE OP SCH (10:00)
[2022-09-06] MEDS ORDERED: TIMOLOL OP SCH (10:00)
[2022-09-06 10:23] LABS: BLOOD UREA NITROGEN 19 mg/dL (9-20); CHLORIDE 102 mmol/L (98-107); Calcium 8.1 mg/dL (8.4-10.2); Carbon Dioxide 31 mmol/L (22-30); Creatinine 1 0.63 mg/dL (0.66-1.25); EST GLOMERULAR FILTRATION RATE > 60.0 ML/MIN; Glucose 289 mg/dL (74-106); PREALBUMIN 16.42 mg/dL (17.6-36.0); Potassium 4.1 mmol/L (3.5-5.1); SODIUM 139 mmol/L (137-145)
[2022-09-06] MEDS: Zestril 5 MG PO SCH (11:56)
[2022-09-06] MEDS: Protonix 20MG Tablet PO SCH (11:57)
[2022-09-06] MEDS: COSOPT OPHTHALMIC 10 ML OP SCH ×3 (11:59→22:16)
[2022-09-06] MEDS ORDERED: MEDICATION INTERVENTION MC SCH (12:00)
[2022-09-06] MEDS ORDERED: INSULIN REGULAR HUMAN SQ SCH ×2 (12:00→17:00)
[2022-09-06] MEDS: NORCO 5/325 MG PO PRN ×2 (12:15→18:03)
[2022-09-06] MEDS: Alphagan P 0.15% OP SCH ×3 (12:15→22:15)
[2022-09-06] MEDS ORDERED: Lactated Ringers 1,000 ML IV SCH (12:30)
[2022-09-06] MEDS ORDERED: DICLOFENAC SODIUM TP SCH (13:00)
[2022-09-06] MEDS: HUMULIN R SQ SCH (13:05)
--- NOTE | 2022-09-06 15:06 | PCM.HP ---
History of Present Illness - Chief Complaint Chief Complaint: appendectomy History of Present Illness: is a 62 year old male pt of mine from [facility] with DM II (on insulin), diab peripheral neuropathy (hx midfoot amputations), CHF, Miller's esophagus, HLD, HTN, RLS, anxiety/depression, and diabetic retinopathy who was admitted through ER with appendicitis. He had an appendectomy this morning with Dr. Katelyn Tellez, thank you. He is still having some RLQ tenderness. Has tolerated yogurt. Has received cefoxetin, flagyl, and levaquin in ER but all have been discontinued. When he was leaving the house with EMS, he fell down the stairs. Initially his R lower back was burning, but appears to be feeling better now. BS have been high, up to [address] in the ER showed appendix abnormally prominent, 1.5cm with periappendiceal stranding and small free fluid (no free air) and worsening fecal stasis. WBC 10.4, hgb 13.7. LA 1.1. AST/ALT and AP nl, with nl Tbili. UA + nitrite with 3-5 WBC and 0-2 RBC (UCx pending). - Review of Systems Constitutional: No Fever Cardiac: Edema (little LE) Abdominal/Gastrointestinal: Abdominal Pain, Vomiting (x yesterday) Genitourinary Symptoms: Dysuria (occasional) Musculoskeletal: Back Pain, Fall Skin: Rash (bilat UE, intermitt, with some itching) Neurological: Other (peripheral neuropathy) Psychological: Anxiety, Depression, No Suicidal Ideations, No Homicidal Ideations All Other Systems: Reviewed and Negative Medications & Allergies Home Medications: Home Medication List Pantoprazole Sodium [[id number]] 20 mg PO DAILY 09/23/14 [History Confirmed 09/06/22] Insulin Glargine [Lantus Insulin] 14 unit SQ BREAKFAST 02/02/19 [History Confirmed 09/06/22] Insulin Regular, Human [Novolin R] 14 units SQ DINNER 02/02/19 [History Confirmed 09/06/22] Insulin Regular, Human [Novolin R] 16 units SQ LUNCH 02/02/19 [History Confirmed 09/06/22] Pramipexole Di-HCl [Pramipexole Dihydrochloride] 0.5 mg PO HS 02/02/19 [History Confirmed 09/06/22] Latanoprost/Pf [Latanoprost 0.005% Eye Drop] 1 drop OP HS 05/30/20 [History Confirmed 09/06/22] Sertraline HCl 50 mg [Zoloft 50 mg Tablet] 50 mg PO DAILY 01/30/21 [History Confirmed 09/06/22] Lisinopril 5 mg [Zestril 5 MG] 2.5 mg PO DAILY 11/14/21 [History Confirmed 09/06/22] Empagliflozin [Jardiance] 10 mg PO DAILY 03/21/22 [History Confirmed 09/06/22] Insulin Glargine [Lantus Insulin] 36 units SQ HS 03/21/22 [History Confirmed 09/06/22] Brimonidine Tartrate 1 drop OP TID 09/06/22 [History Confirmed 09/06/22] Dorzolamide/Timolol/Pf [Dorzolamide-Timolol 2%-0.5%] 1 drop OP BID 09/06/22 [H istory Confirmed 09/06/22] Insulin Regular, Human [NovoLIN R] 14 unit SQ BREAKFAST 09/06/22 [History Confirmed 09/06/22] Netarsudil Mesylate [Rhopressa] 1 drop OP DAILY 09/06/22 [History Confirmed 09/06/22] Allergies/Adverse Reactions: Allergies Allergy/AdvReac Type Severity Reaction Status Date / Time Latex, Natural Rubber Allergy Intermediate Rash Verified 09/06/22 06:00 - Past Medical History Past Medical History: Yes Neurological History: No Pertinent History ENT History: Cataracts, Glaucoma Cardiac History: No Pertinent History, Congestive Heart Failure Respiratory History: No Pertinent History Endocrine Medical History: Diabetes Type II Musculoskelatal History: Osteoarthritis GI Medical History: GERD, Gallbladder Disease History: No Pertinent History Pyscho-Social History: Anxiety, Depression Male Reproductive Disorders: No Pertinent History Comment: OSTEOMYELITIS - Past Surgical History Past Surgical History: Yes Neuro Surgical History: No Pertinent History Cardiac History: No Pertinent History Respiratory Surgery: No Pertinent History GI Surgical History: Appendectomy, Cholecystectomy Genitourinary Surgical Hx: No Pertinent History Musculskeletal Surgical Hx: Amputation Male Surgical History: No Pertinent History Other Surgical History: both feet toes amputation, colonoscopy, EGD, polyp removed - Social History Smoking Status: Never smoker Exposure to second hand smoke: No Alcohol: None Drug Use: none - Physical Exam Vital Signs: Vital Signs - 24 hr Temp Pulse Resp BP Pulse Ox 09/06/22 11:32 98.0 F 83 16 121/66 96 09/06/22 10:45 94 L 09/06/22 10:11 97.9 F 86 16 116/65 96 09/06/22 09:26 97.9 F 89 16 124/71 93 L 09/06/22 08:55 97.6 F 88 16 121/58 98 09/06/22 08:28 98.0 F 85 16 132/63 92 L 09/06/22 07:53 98.0 F 85 16 132/63 92 L 09/06/22 06:00 98.5 F 75 16 125/69 97 09/06/22 05:58 98.5 F 78 16 114/66 96 09/06/22 05:00 78 114/66 96 09/06/22 04:04 100 09/06/22 04:00 82 119/66 98 09/06/22 03:00 88 132/68 99 09/06/22 02:19 80 122/68 100 09/06/22 01:27 98.5 F 93 H 16 131/67 98 General Appearance: no apparent distress, alert Neurologic Exam: oriented x 3, cooperative, normal mood/affect Eye Exam: eyes nml inspection Ears, Nose, Throat Exam: moist mucous membranes Neck Exam: normal inspection, non-tender, supple, No lymphadenopathy, No thyromegaly Respiratory Exam: normal breath sounds, lungs clear, No crackles/rales, No rhonchi, No wheezing Cardiovascular Exam: regular rate/rhythm, normal heart sounds, No murmur Gastrointestinal/Abdomen Exam: soft, normal bowel sounds, tenderness (diffuse), other (wounds covered, some red blood on periumbilical dressing. SHAYNE drain present with serosanguinous drainage.), No distention, No mass, No guarding, No rebound Extremity Exam: normal inspection, No pedal edema, No swelling Skin Exam: normal color, warm, dry, No rash Results - Labs Lab/Micro Results: Lab Results-Last 24 Hours 09/06/22 09/06/22 09/06/22 Range/Units 03:00 03:03 03:03 WBC 10.4 (4.0-10.5) x10^3/uL RBC 4.89 (4.1-5.6) x10^6/uL Hgb 13.7 (12.5-18.0) g/dL Hct 43.7 (42-50) % MCV 89.4 (78-100) fL MCH 28.0 (26-32) pg MCHC 31.4 L (32-36) g/dL RDW 13.3 (11.5-14.0) % Plt Count 153 (150-450) x10^3/uL MPV 8.6 (7.5-11.0) fL Gran % 90.5 H (36.0-66.0) % Immature Gran % (Auto) 0.3 (0.00-0.4) % Nucleat RBC Rel Count 0.0 (0.00-0.1) % Eos # (Auto) 0 (0-0.5) x10^3/uL Immature Gran # (Auto) 0.03 (0.00-0.03) x10^3u/L Absolute Lymphs (auto) 0.40 L (1.0-4.6) x10^3/uL Absolute Monos (auto) 0.54 (0.0-1.3) x10^3/uL Absolute Nucleated RBC 0.00 (0.00-0.01) x10^3u/L Lymphocytes % 3.8 L (24.0-44.0) % Monocytes % 5.2 (0.0-12.0) % Eosinophils % 0.0 (0.00-5.0) % Basophils % 0.2 (0.0-0.4) % Absolute Granulocytes 9.41 H (1.4-6.9) x10^3/uL Basophils # 0.02 (0-0.4) x10^3/uL PT 10.9 (9.4-12.5) SECONDS INR 1.00 (0.8-3.0) APTT 25.3 (25.1-36.5) SECONDS Sodium 140 (137-145) mmol/L Potassium 4.2 (3.5-5.1) mmol/L Chloride 103 (98-107) mmol/L Carbon Dioxide 29 (22-30) mmol/L Anion Gap 12.1 (5-15) MEQ/L BUN 20 (9-20) mg/dL Creatinine 0.66 (0.66-1.25) mg/dL Estimated GFR > 60.0 ML/MIN Glucose 190 H (74-106) mg/dL POC Glucometer (74 to 106) mg/dL Lactic Acid (0.4-2.0) Calcium 8.5 (8.4-10.2) mg/dL Total Bilirubin 0.80 (0.2-1.3) mg/dL AST 22 (17-59) U/L ALT 16 (0-50) U/L Alkaline Phosphatase 69 (38-126) U/L Serum Total Protein 7.1 (6.3-8.2) g/dL Albumin 3.9 (3.5-5.0) g/dL Prealbumin (17.6-36.0) mg/dL Urine Color (Yellow) Urine Appearance (Clear) Urine pH (4.6-8.0) Ur Specific [place] (1.005-1.030) Urine Protein (Negative) Urine Glucose (UA) (Negative) mg/dL Urine Ketones (Negative) Urine Blood (Negative) Urine Nitrite (Negative) Urine Bilirubin (Negative) Urine Urobilinogen (0.2) mg/dL Ur Leukocyte Esterase (Negative) U Hyaline Cast (Auto) (0-2) /LPF Urine Microscopic RBC (0-5) /HPF Urine Microscopic WBC (0-5) /HPF Ur Epithelial Cells (None Seen) /HPF Urine Bacteria (None Seen) /HPF Urine Culture Reflexed (NO) Influenza Type A Ag (NEGATIVE) Influenza Type B Ag (NEGATIVE) RSV (PCR) (NEGATIVE) SARS-CoV-2 (PCR) (NEGATIVE) Slides for Path Review YES 09/06/22 09/06/22 09/06/22 Range/Units 03:30 04:32 06:36 WBC (4.0-10.5) x10^3/uL RBC (4.1-5.6) x10^6/uL Hgb (12.5-18.0) g/dL Hct (42-50) % MCV (78-100) fL MCH (26-32) pg MCHC (32-36) g/dL RDW (11.5-14.0) % Plt Count (150-450) x10^3/uL MPV (7.5-11.0) fL Gran % (36.0-66.0) % Immature Gran % (Auto) (0.00-0.4) % Nucleat RBC Rel Count (0.00-0.1) % Eos # (Auto) (0-0.5) x10^3/uL Immature Gran # (Auto) (0.00-0.03) x10^3u/L Absolute Lymphs (auto) (1.0-4.6) x10^3/uL Absolute Monos (auto) (0.0-1.3) x10^3/uL Absolute Nucleated RBC (0.00-0.01) x10^3u/L Lymphocytes % (24.0-44.0) % Monocytes % (0.0-12.0) % Eosinophils % (0.00-5.0) % Basophils % (0.0-0.4) % Absolute Granulocytes (1.4-6.9) x10^3/uL Basophils # (0-0.4) x10^3/uL PT (9.4-12.5) SECONDS INR (0.8-3.0) APTT (25.1-36.5) SECONDS Sodium (137-145) mmol/L Potassium (3.5-5.1) mmol/L Chloride (98-107) mmol/L Carbon Dioxide (22-30) mmol/L Anion Gap (5-15) MEQ/L BUN (9-20) mg/dL Creatinine (0.66-1.25) mg/dL Estimated GFR ML/MIN Glucose (74-106) mg/dL POC Glucometer 230 H (74 to 106) mg/dL Lactic Acid 1.1 (0.4-2.0) Calcium (8.4-10.2) mg/dL Total Bilirubin (0.2-1.3) mg/dL AST (17-59) U/L ALT (0-50) U/L Alkaline Phosphatase (38-126) U/L Serum Total Protein (6.3-8.2) g/dL Albumin (3.5-5.0) g/dL Prealbumin (17.6-36.0) mg/dL Urine Color (Yellow) Urine Appearance (Clear) Urine pH (4.6-8.0) Ur Specific [place] (1.005-1.030) Urine Protein (Negative) Urine Glucose (UA) (Negative) mg/dL Urine Ketones (Negative) Urine Blood (Negative) Urine Nitrite (Negative) Urine Bilirubin (Negative) Urine Urobilinogen (0.2) mg/dL Ur Leukocyte Esterase (Negative) U Hyaline Cast (Auto) (0-2) /LPF Urine Microscopic RBC (0-5) /HPF Urine Microscopic WBC (0-5) /HPF Ur Epithelial Cells (None Seen) /HPF Urine Bacteria (None Seen) /HPF Urine Culture Reflexed (NO) Influenza Type A Ag NEGATIVE (NEGATIVE) Influenza Type B Ag NEGATIVE (NEGATIVE) RSV (PCR) NEGATIVE (NEGATIVE) SARS-CoV-2 (PCR) NEGATIVE (NEGATIVE) Slides for Path Review 09/06/22 09/06/22 09/06/22 Range/Units 08:00 09:10 09:10 WBC 12.8 H (4.0-10.5) x10^3/uL RBC 4.75 (4.1-5.6) x10^6/uL Hgb 13.4 (12.5-18.0) g/dL Hct 42.7 (42-50) % MCV 89.9 (78-100) fL MCH 28.2 (26-32) pg MCHC 31.4 L (32-36) g/dL RDW 13.2 (11.5-14.0) % Plt Count 154 (150-450) x10^3/uL MPV 9.1 (7.5-11.0) fL Gran % (36.0-66.0) % Immature Gran % (Auto) (0.00-0.4) % Nucleat RBC Rel Count (0.00-0.1) % Eos # (Auto) (0-0.5) x10^3/uL Immature Gran # (Auto) (0.00-0.03) x10^3u/L Absolute Lymphs (auto) (1.0-4.6) x10^3/uL Absolute Monos (auto) (0.0-1.3) x10^3/uL Absolute Nucleated RBC (0.00-0.01) x10^3u/L Lymphocytes % (24.0-44.0) % Monocytes % (0.0-12.0) % Eosinophils % (0.00-5.0) % Basophils % (0.0-0.4) % Absolute Granulocytes (1.4-6.9) x10^3/uL Basophils # (0-0.4) x10^3/uL PT (9.4-12.5) SECONDS INR (0.8-3.0) APTT (25.1-36.5) SECONDS Sodium 139 (137-145) mmol/L Potassium 4.1 (3.5-5.1) mmol/L Chloride 102 (98-107) mmol/L Carbon Dioxide 31 H (22-30) mmol/L Anion Gap 10.0 (5-15) MEQ/L BUN 19 (9-20) mg/dL Creatinine 0.63 L (0.66-1.25) mg/dL Estimated GFR > 60.0 ML/MIN Glucose 289 H (74-106) mg/dL POC Glucometer (74 to 106) mg/dL Lactic Acid (0.4-2.0) Calcium 8.1 L (8.4-10.2) mg/dL Total Bilirubin (0.2-1.3) mg/dL AST (17-59) U/L ALT (0-50) U/L Alkaline Phosphatase (38-126) U/L Serum Total Protein (6.3-8.2) g/dL Albumin (3.5-5.0) g/dL Prealbumin 16.42 L (17.6-36.0) mg/dL Urine Color Yellow (Yellow) Urine Appearance Clear (Clear) Urine pH 6.5 (4.6-8.0) Ur Specific [place] >=1.030 A (1.005-1.030) Urine Protein Trace A (Negative) Urine Glucose (UA) >=1000 A (Negative) mg/dL Urine Ketones 15 A (Negative) Urine Blood Negative (Negative) Urine Nitrite Positive A (Negative) Urine Bilirubin Negative (Negative) Urine Urobilinogen 0.2 (0.2) mg/dL Ur Leukocyte Esterase Negative (Negative) U Hyaline Cast (Auto) NONE SEEN (0-2) /LPF Urine Microscopic RBC 0-2 (0-5) /HPF Urine Microscopic WBC 3-5 (0-5) /HPF Ur Epithelial Cells None Seen (None Seen) /HPF Urine Bacteria Many A (None Seen) /HPF Urine Culture Reflexed YES (NO) Influenza Type A Ag (NEGATIVE) Influenza Type B Ag (NEGATIVE) RSV (PCR) (NEGATIVE) SARS-CoV-2 (PCR) (NEGATIVE) Slides for Path Review - Radiology Impressions Radiology Exams & Impressions: Radiology Procedures Category Date Time Status ABDOMEN AND PELVIS W/0 CONTRAS [CT] Stat Exams 09/06/22 02:24 Completed Assessment/Plan (1) S/P appendectomy Current Visit: Yes Status: Acute Assessment & Plan: POD #0, doing well so far. Likely home tomorrow (would like to make sure he is stable to walk prior to discharge). Has appt with me next Friday already scheduled. Code(s): Z90.49 - ACQUIRED ABSENCE OF OTHER SPECIFIED PARTS OF DIGESTIVE TRACT (2) UTI (urinary tract infection) Current Visit: No Status: Acute Qualifiers: Urinary tract infection type: acute cystitis Assessment & Plan: started rocephin today. Got 1 dose levaquin yesterday. Code(s): N39.0 - URINARY TRACT INFECTION, SITE NOT SPECIFIED (3) Type II diabetes mellitus, uncontrolled Current Visit: No Status: Chronic
[2022-09-06] MEDS: ROCEPHIN 1 Gm-D5w 50 ml Bag** 1 G/50 ML IVPB IV SCH (16:23)
[2022-09-06] MEDS: DICLOFENAC SODIUM TP SCH ×2 (16:34→22:15)
[2022-09-06] MEDS ORDERED: HUMULIN R SQ SCH (17:00)
[2022-09-06] MEDS ORDERED: NON-FORMULARY ITEM (Latanoprost/Pf [Latanoprost 0.005% Eye Drop] 7.5 ML Drops) OP SCH (22:00)
[2022-09-06] MEDS ORDERED: Xalatan OP SCH (22:00)
[2022-09-06] MEDS ORDERED: Lantus Insulin SQ SCH (22:00)
[2022-09-06] MEDS ORDERED: Mirapex 0.5 MG Tablet PO SCH (22:00)
[2022-09-06] MEDS ORDERED: NON-FORMULARY ITEM (Pramipexole Di-Hcl [Pramipexole Dihydrochloride] 0.125 MG Tablet) PO SCH (22:00)
[2022-09-07 06:55] LABS: Absolute Neutrophil Ct (ANC) 8.43 x10^3/uL (1.4-6.9); BASOPHIL % 0.1 % (0.0-0.4); Basophil (Absolute #) 0.01 x10^3/uL (0-0.4); Eosinophil % 0.1 % (0.00-5.0); Eosinophil (Absolute #) 0.01 x10^3/uL (0-0.5); Hemoglobin 11.5 g/dL (12.5-18.0); IMMATURE GRAN # 0.02 x10^3u/L (0.00-0.03); IMMATURE GRAN % 0.2 % (0.00-0.4); Lymphocyte (Absolute #) 0.82 x10^3/uL (1.0-4.6); Lymphocytes % 8.4 % (24.0-44.0); Mean Cell Volume 90.7 fL (78-100); Mean Corpuscular Hgb Concent. 31.9 g/dL (32-36); Mean Platelet Volume 9.6 fL (7.5-11.0); Monocyte (Absolute #) 0.48 x10^3/uL (0.0-1.3); Monocytes % 4.9 % (0.0-12.0); Neutrophil % 86.3 % (36.0-66.0); Platelet Count 145 x10^3/uL (150-450); Red Blood Count 3.97 x10^6/uL (4.1-5.6); Red Cell Distribution Width 13.4 % (11.5-14.0); White Blood Count 9.8 x10^3/uL (4.0-10.5)
[2022-09-07 07:03] LABS: ALBUMIN 3.2 g/dL (3.5-5.0); ALKALINE PHOSPHATASE 47 U/L (38-126); ANION GAP 10.1 MEQ/L (5-15); BLOOD UREA NITROGEN 22 mg/dL (9-20); CHLORIDE 105 mmol/L (98-107); Calcium 8.1 mg/dL (8.4-10.2); Carbon Dioxide 27 mmol/L (22-30); Creatinine 1 0.65 mg/dL (0.66-1.25); EST GLOMERULAR FILTRATION RATE > 60.0 ML/MIN; Glucose 138 mg/dL (74-106); Potassium 3.9 mmol/L (3.5-5.1); SGOT/AST 17 U/L (17-59); SGPT/ALT 13 U/L (0-50); SODIUM 138 mmol/L (137-145); Total Protein 6.1 g/dL (6.3-8.2)
[2022-09-07] MEDS ORDERED: HUMULIN R SQ SCH (08:00)
[2022-09-07] MEDS ORDERED: Lantus Insulin SQ SCH (08:00)
[2022-09-07] MEDS: NORCO 5/325 MG PO PRN ×2 (08:33→16:12)
[2022-09-07] MEDS: Zestril 5 MG PO SCH (08:34)
[2022-09-07] MEDS: ROCEPHIN 1 Gm-D5w 50 ml Bag** 1 G/50 ML IVPB IV SCH (08:35)
[2022-09-07] MEDS: Protonix 20MG Tablet PO SCH (08:36)
[2022-09-07] MEDS ORDERED: ENOXAPARIN SODIUM SQ SCH (10:00)
[2022-09-07] MEDS ORDERED: NETARSUDIL MESYLATE OP SCH (10:00)
[2022-09-07] MEDS: COSOPT OPHTHALMIC 10 ML OP SCH (10:20)
[2022-09-07] MEDS: Alphagan P 0.15% OP SCH ×2 (10:22→15:25)
[2022-09-07] MEDS: DICLOFENAC SODIUM TP SCH ×2 (10:25→13:04)
[2022-09-07] MEDS: HUMULIN R SQ SCH (12:52)
--- NOTE | 2022-09-07 16:00 | PCM.DCORD ---
- Discharge Disposition: Home, Self-Care Condition: Stable Prescriptions: New Amox Tr/Potass Clav. 500 mg [Augmentin 500-125 Tablet] 500 mg PO TID 5 Days #15 tablet Continue Pantoprazole Sodium [[id number]] 20 mg PO DAILY Insulin Glargine [Lantus Insulin] 14 unit SQ BREAKFAST Insulin Regular, Human [Novolin R] 14 units SQ DINNER Insulin Regular, Human [Novolin R] 16 units SQ LUNCH Pramipexole Di-HCl [Pramipexole Dihydrochloride] 0.5 mg PO HS Latanoprost/Pf [Latanoprost 0.005% Eye Drop] 1 drop OP HS Sertraline HCl 50 mg [Zoloft 50 mg Tablet] 50 mg PO DAILY Lisinopril 5 mg [Zestril 5 MG] 2.5 mg PO DAILY Empagliflozin [Jardiance] 10 mg PO DAILY Insulin Glargine [Lantus Insulin] 36 units SQ HS Dorzolamide/Timolol/Pf [Dorzolamide-Timolol 2%-0.5%] 1 drop OP BID Insulin Regular, Human [NovoLIN R] 14 unit SQ BREAKFAST Brimonidine Tartrate 1 drop OP TID Netarsudil Mesylate [Rhopressa] 1 drop OP DAILY Instructions: Berny-Meier Drain, Appendectomy, Laparoscopic Surgery (DC) Additional Instructions: CALL FOR APPOINTMENT WITH DR Katelyn WILLIAMSON THIS FOLLOWING WEEK. YOU ARE GOING HOME WITH A SHAYNE DRAIN; WE HAVE SENT YOU WITH INFORMATION ON HOW TO CARE FOR YOUR DRAIN. IF YOU HAVE FEVER, REDNESS AT INCISION SITES, FOUL SMELLING OR CLOUDY DISCHARGE FROM SHAYNE DRAIN, CALL OFFICE OR GO TO ER FOR EVALUATION Follow up with: GAIL WILLIAMSON MD [ACTIVE STAFF] - 5 Days (call for appointment )
[2022-09-07 16:41] VITALS: BP 109/56; PULSE 61; O2SAT 97
[2022-09-07] MEDS ORDERED: Pre-Attached Lta Kit TP ONE (16:54)
--- NOTE | 2022-09-09 11:23 | OP ---
SURGERY DATE/TIME: 09/06/2022 0624 PREOPERATIVE DIAGNOSIS: Appendicitis. POSTOPERATIVE DIAGNOSES: Acute appendicitis with localized purulent peritonitis. PROCEDURE: Laparoscopic appendectomy. SURGEON: Reynold Tellez M.D. ANESTHESIA: General. ESTIMATED BLOOD LOSS: Minimal. CONDITION: Patient condition stable. COMPLICATIONS: None. SPECIMEN: Appendix. HISTORY: The patient is a 62-year-old male diabetic that presets with one day of abdominal pain. He does have localized guarding and rebound in the right lower quadrant. CT scan confirmed appendicitis. It did not look perforated on the CT scan. Discussed with the patient the risk of infection, bleeding, hernia, injury to nearby structure, hernia and we recommend appendectomy. FINDINGS: Perforated appendix with purulent peritonitis down in the right lower quadrant and pelvis, healthy base. DESCRIPTION OF PROCEDURE: The patient was brought to the operating room. General anesthesia was induced. Routinely positioned, prepped and draped. Time out was performed. Received preoperative antibiotic. Veress needle inserted left upper quadrant. Pneumoperitoneum established. A 5 mm Optiview trocar placed in left lower quadrant. The abdomen was surveyed. A 5 mm suprapubic port is placed. A 12 mm umbilical trocar is placed. There is frankly ruptured appendicitis with purulent peritonitis right lower quadrant and pelvis that seems like a recent rupture. The pelvis, right lower quadrant irrigated out and suctioned out. The mesoappendix is taken with LigaSure and then the base of the appendix was taken with white load RICHARD stapler and placed in specimen bag and removed through the 12 trocar site. The staple line was re-evaluated. It was healthy, satisfactory. There is good hemostasis. The pelvis, right lower quadrant suctioned out again and that is satisfactory. A 7 mm drain is then placed and brought out the suprapubic and then draped down in the pelvis right lower quadrant. The 12 trocar site closed with 0 Vicryl interrupted suture passer. Left lower quadrant port used for desufflation and then removed. Marcaine injected at all of the port sites and closed with 4-0 Vicryl sutures. Steri-Strips and sterile dressings applied. All counts were correct. The patient tolerated the procedure well. He was extubated and taken to the recovery room in stable condition.
== END 2022-09-07 16:55 | disposition home or self-care (01) ==
LOC: ED 01:19 → MED SURG 07:52
PROVIDERS: ADMIT Surgery; ATTEND Family Medicine
DX: K35.33 Acute appendicitis with perforation, localized peritonitis, and gangrene, with abscess (principal); N39.0 Urinary tract infection, site not specified; E11.9 Type 2 diabetes mellitus without complications; I11.0 Hypertensive heart disease with heart failure; I50.9 Heart failure, unspecified; W19.XXXA Unspecified fall, initial encounter; M25.551 Pain in right hip; E78.5 Hyperlipidemia, unspecified; Z79.899 Other long term (current) drug therapy; Z20.828 Contact with and (suspected) exposure to other viral communicable diseases; Z89.422 Acquired absence of other left toe(s); Z89.421 Acquired absence of other right toe(s)
CPT/HCPCS: 0241U; 36000; 36415; 44970; 74176; 80048; 80053; 81001; 82947; 83036; 83605; 84134; 85025; 85027; 85610; 85730; 87086; 93005; 96360; 96365; 96367; 96368; 96374; 96375; 99284; G0378; 99140; J0330; J0694; J0696; J1100; J1650; J1815; J1956; J2270; J2405; J2704; J3010; A9270-GY

== ENCOUNTER 2024-02-20 21:03 | Inpatient (IN) | payer MEDICARE ==
--- NOTE | 2024-02-20 21:15 | ERPHSYRPT ---
- History of Present Illness Time Seen by Provider: 02/20/24 21:03 Historian: patient Exam Limitations: no limitations Physician History: Pt states he started with sharp intermittent 8/10 chest pain about 12 hours ago with episodes lasting up to 1 minute, vomited 4 times today and his blood glucose monitor read HI today; denies shortness of air & diarrhea. Aspirin Treatment Today: 81 mg x 4, provided by ED Allergies/Adverse Reactions: Latex, Natural Rubber Allergy (Intermediate, Verified 02/20/24 21:22) Rash Home Medications: Pantoprazole Sodium [[id number]] 20 mg PO DAILY 09/23/14 [History] Insulin Regular, Human [Novolin R] 14 units SQ DINNER 02/02/19 [History] Insulin Regular, Human [Novolin R] 16 units SQ LUNCH 02/02/19 [History] Pramipexole Di-HCl [Pramipexole Dihydrochloride] 0.5 mg PO HS 02/02/19 [History] Latanoprost/Pf [Latanoprost 0.005% Eye Drop] 1 drop OP HS 05/30/20 [History] Sertraline HCl 50 mg [Zoloft 50 mg Tablet] 50 mg PO DAILY 01/30/21 [History] Lisinopril 5 mg [Zestril 5 MG] 2.5 mg PO DAILY 11/14/21 [History] Empagliflozin [Jardiance] 10 mg PO DAILY 03/21/22 [History] Brimonidine Tartrate 1 drop OP TID 09/06/22 [History] Dorzolamide/Timolol/Pf [Dorzolamide-Timolol 2%-0.5%] 1 drop OP BID 09/06/22 [History] Insulin Regular, Human [NovoLIN R] 14 unit SQ BREAKFAST 09/06/22 [History] Netarsudil Mesylate [Rhopressa] 1 drop OP DAILY 09/06/22 [History] Hx Tetanus, Diphtheria Vaccination/Date Given: Yes Hx Influenza Vaccination/Date Given: Yes Hx Pneumococcal Vaccination/Date Given: Yes - Review of Systems Respiratory: No Dyspnea Cardiac: Chest Pain Abdominal/Gastrointestinal: Vomiting, No Diarrhea - Past Medical History Pertinent Past Medical History: Yes Neurological History: No Pertinent History ENT History: Cataracts, Glaucoma Cardiac History: No Pertinent History, Congestive Heart Failure Respiratory History: No Pertinent History Endocrine Medical History: Diabetes Type II Musculoskeletal History: Osteoarthritis GI Medical History: GERD, Gallbladder Disease History: No Pertinent History Psycho-Social History: Anxiety, Depression Male Reproductive Disorders: No Pertinent History Other Medical History: OSTEOMYELITIS - Past Surgical History Past Surgical History: Yes Neuro Surgical History: No Pertinent History Cardiac: No Pertinent History Respiratory: No Pertinent History Gastrointestinal: Appendectomy, Cholecystectomy Genitourinary: No Pertinent History Musculoskeletal: Amputation Male Surgical History: No Pertinent History Other Surgical History: both feet toes amputation, colonoscopy, EGD, polyp removed - Social History Smoking Status: Never smoker Exposure to second hand smoke: No Drug Use: none Patient Lives Alone: No - Nursing Vital Signs Nursing Vital Signs: Initial Vital Signs Temperature 98.7 F 02/20/24 21:06 Pulse Rate 92 H 02/20/24 21:06 Blood Pressure 145/76 02/20/24 21:06 O2 Sat by Pulse Oximetry 92 L 02/20/24 21:06 Pain Scale Pain Intensity 4 - Physical Exam General Appearance: alert Eye Exam: PERRL/EOMI Ears, Nose, Throat Exam: pharyngeal erythema (mild) Neck Exam: normal inspection Respiratory Exam: lungs clear Cardiovascular Exam: normal heart sounds Gastrointestinal/Abdomen Exam: normal bowel sounds Neurologic Exam: alert, cooperative Skin Exam: warm, dry, No cyanosis - Course EKG Interpreted by Me: RATE (93), Sinus Rhythm, NORMAL AXIS, Other (QTc = 441) - CT Exams Chest CT Interpretation: Tele-radiologist Report (Evidence of intraluminal hypodense filling defects are noted involving anterior segmental branches of both upper lobes and left lower lobar artery-suggestive of pulmonary embolism. See rest of report.) Abdomen/Pelvis CT Interpretation: Tele-radiologist Report (Simple right renal cortical cysts. Hepatic steatosis. No obvious acute intra-abdominal abnormality seen.) Ordered Tests: Active Orders 24 hr Category Date Time Status EKG-ER Only STAT Care 02/20/24 21:11 Active IV Insertion STAT Care 02/20/24 21:11 Active Oxygen-ED Only Nasal Cannula 2 lpm Care 02/20/24 21:57 Active POCT Glucose Check STAT Care 02/20/24 22:58 Active ABDOMEN AND PELVIS W CONTRAST [CT] Stat Exams 02/20/24 21:13 Completed CHEST WITH CONTRAST [CT] Stat Exams 02/20/24 21:14 Completed AMYLASE Stat Lab 02/20/24 21:29 Completed CBC W DIFF Stat Lab 02/20/24 21:29 Completed CMP Stat Lab 02/20/24 21:29 Completed CULTURE,URINE Stat Lab 02/20/24 21:44 Received LIPASE Stat Lab 02/20/24 21:29 Completed MAGNESIUM Stat Lab 02/20/24 21:29 Completed POCT GLUCOSE Stat Lab 02/20/24 21:09 Completed POCT GLUCOSE Stat Lab 02/20/24 23:03 Completed POCT GLUCOSE Stat Lab 02/21/24 00:10 Completed PROTIME WITH INR Stat Lab 02/21/24 00:25 Received PTT Stat Lab 02/21/24 00:25 Received TROPONIN Q4H Lab 02/20/24 21:29 Completed TROPONIN Q4H Lab 02/21/24 01:15 Ordered TROPONIN Q4H Lab 02/21/24 05:15 Ordered UA W/RFX UR CULTURE Stat Lab 02/20/24 21:44 Completed Urine Triage Profile Stat Lab 02/20/24 21:44 Completed VENOUS BLOOD GAS Stat Lab 02/20/24 21:25 Completed Medication Summary Discontinued Medications Generic Name Dose Route Start Last Admin Trade Name Freq PRN Reason Stop Dose Admin Enoxaparin Sodium 75 mg 02/21/24 00:22 Enoxaparin Sodium 80 Mg/0.8 Ml Syringe SQ 02/21/24 00:23 STAT ONE Enoxaparin Sodium Confirm 02/21/24 00:25 Enoxaparin Sodium 80 Mg/0.8 Ml Syringe Administered 02/21/24 00:26 Dose 80 mg SQ .STK-MED ONE Sodium Chloride 1,000 mls @ 999 mls/hr 02/20/24 21:11 02/20/24 22:41 Sodium Chloride 0.9% 1000 Ml IV 02/20/24 22:11 Infused .Q1H1M STA Infusion Sodium Chloride Confirm 02/20/24 21:25 Sodium Chloride 0.9% 1000 Ml Administered 02/20/24 21:26 Dose 1,000 mls @ ud .ROUTE .STK-MED ONE Insulin Human Regular 10 unit 02/20/24 21:19 02/20/24 21:27 Insulin Regular, Human 1 Unit IV 02/20/24 21:20 10 unit STAT ONE Administration Insulin Human Regular Confirm 02/20/24 21:25 Insulin Regular, Human 1 Unit Administered 02/20/24 21:26 Dose 10 unit .ROUTE .STK-MED ONE Insulin Human Regular 8 unit 02/20/24 23:04 02/20/24 23:12 Insulin Regular, Human 1 Unit IV 02/20/24 23:05 8 unit STAT ONE Administration Insulin Human Regular Confirm 02/20/24 23:10 Insulin Regular, Human 1 Unit Administered 02/20/24 23:11 Dose 8 unit .ROUTE .STK-MED ONE Ondansetron HCl 4 mg 02/20/24 22:37 02/20/24 22:41 Ondansetron Hcl 4 Mg/2 Ml Vial IV 02/20/24 22:38 4 mg STAT ONE Administration Ondansetron HCl Confirm 02/20/24 22:40 Ondansetron Hcl 4 Mg/2 Ml Vial Administered 02/20/24 22:41 Dose 4 mg .ROUTE .STK-MED ONE Lab/Rad Data: Laboratory Result Diagrams 02/20/24 21:29 02/20/24 21:29 Laboratory Results 02/21/24 02/20/24 02/20/24 Range/Units 00:10 23:03 21:44 WBC (4.23-9.07) x10^3/uL RBC (4.63-6.08) x10^6/uL Hgb (13.7-17.5) g/dL Hct (40.1-51.0) % MCV (79.0-92.2) fL MCH (25.7-32.2) pg MCHC (32.3-36.5) g/dL RDW (11.6-14.4) % Plt Count (163-337) x10^3/uL MPV (9.4-12.4) fL Gran % (34.0-67.9) % Immature Gran % (Auto) (0.001-0.429) % Nucleat RBC Rel Count (0.00-0.2) % Eos # (Auto) (0.04-0.54) x10^3/uL Immature Gran # (Auto) (0.001-0.031) x10^3u/L Absolute Lymphs (auto) (1.32-3.57) x10^3/uL Absolute Monos (auto) (0.30-0.82) x10^3/uL Absolute Nucleated RBC (0.00-0.012) x10^3u/L Lymphocytes % (21.8-53.1) % Monocytes % (5.3-12.2) % Eosinophils % (0.8-7.0) % Basophils % (0.2-1.2) % Absolute Granulocytes (1.78-5.38) x10^3/uL Basophils # (0.01-0.08) x10^3/uL pO2/FiO2 Ratio % VBG pH (7.32-7.42) VBG pCO2 at Pat Temp (42-55) mm/Hg VBG pO2 at Pat Temp (25-40) mm/Hg VBG HCO3 (22-28) meq/L VBG O2 Sat (Harmeet) (95-100) VBG Base Excess (-2.0-2.0) VBG Hemoglobin VBG Carboxyhemoglobin (0.0-6.9) % T HGB POC Potassium (3.5-5.1) Sodium (135-145) mmol/L Potassium (3.5-5.1) mmol/L Chloride (98-107) mmol/L Carbon Dioxide (22-30) mmol/L Anion Gap (5-15) MEQ/L BUN (9-20) mg/dL Creatinine (0.66-1.25) mg/dL Estimated GFR ML/MIN Glucose (74-106) mg/dL POC Glucometer 357 H 428 H (50 to 500) mg/dL Calcium (8.4-10.2) mg/dL Magnesium (1.6-2.3) mg/dL Total Bilirubin (0.2-1.3) mg/dL AST (17-59) U/L ALT (0-50) U/L Alkaline Phosphatase (38-126) U/L Troponin I (0.000-0.033) ng/mL Serum Total Protein (6.3-8.2) g/dL Albumin (3.5-5.0) g/dL Amylase (30-110) U/L Lipase (23-300) U/L Urine Color (Yellow) Urine Appearance (Clear) Urine pH (4.6-8.0) Ur Specific Gideon (1.005-1.030) Urine Protein (Negative) Urine Glucose (UA) (Negative) mg/dL Urine Ketones (Negative) Urine Blood (Negative) Urine Nitrite (Negative) Urine Bilirubin (Negative) Urine Urobilinogen (0.2) mg/dL Ur Leukocyte Esterase (Negative) U Hyaline Cast (Auto) (0-2) /LPF Urine Microscopic RBC (0-5) /HPF Urine Microscopic WBC (0-5) /HPF Ur Epithelial Cells (None Seen) /HPF Urine Bacteria (None Seen) /HPF Urine Yeast (Budding) (None Seen) /HPF Urine Culture Reflexed (NO) Urine Opiates Level NEGATIVE (NEGATIVE) Ur Methadone NEGATIVE (NEGATIVE) Urine Barbiturates NEGATIVE (NEGATIVE) Ur Phencyclidine (PCP) NEGATIVE (NEGATIVE) Urine Amphetamine NEGATIVE (NEGATIVE) U Benzodiazepine Level NEGATIVE (NEGATIVE) Urine Cocaine NEGATIVE (NEGATIVE) Urine Marijuana (THC) NEGATIVE (NEGATIVE) Influenza Type A Ag (NEGATIVE) Influenza Type B Ag (NEGATIVE) RSV (PCR) (NEGATIVE) SARS-CoV-2 (PCR) (NEGATIVE) Group A Strep Antibody (NEGATIVE) 02/20/24 02/20/24 02/20/24 Range/Units 21:44 21:29 21:29 WBC (4.23-9.07) x10^3/uL RBC (4.63-6.08) x10^6/uL Hgb (13.7-17.5) g/dL Hct (40.1-51.0) % MCV (79.0-92.2) fL MCH (25.7-32.2) pg MCHC (32.3-36.5) g/dL RDW (11.6-14.4) % Plt Count (163-337) x10^3/uL MPV (9.4-12.4) fL Gran % (34.0-67.9) % Immature Gran % (Auto) (0.001-0.429) % Nucleat RBC Rel Count (0.00-0.2) % Eos # (Auto) (0.04-0.54) x10^3/uL Immature Gran # (Auto) (0.001-0.031) x10^3u/L Absolute Lymphs (auto) (1.32-3.57) x10^3/uL Absolute Monos (auto) (0.30-0.82) x10^3/uL Absolute Nucleated RBC (0.00-0.012) x10^3u/L Lymphocytes % (21.8-53.1) % Monocytes % (5.3-12.2) % Eosinophils % (0.8-7.0) % Basophils % (0.2-1.2) % Absolute Granulocytes (1.78-5.38) x10^3/uL Basophils # (0.01-0.08) x10^3/uL pO2/FiO2 Ratio % VBG pH (7.32-7.42) VBG pCO2 at Pat Temp (42-55) mm/Hg VBG pO2 at Pat Temp (25-40) mm/Hg VBG HCO3 (22-28) meq/L VBG O2 Sat (Harmeet) (95-100) VBG Base Excess (-2.0-2.0) VBG Hemoglobin VBG Carboxyhemoglobin (0.0-6.9) % T HGB POC Potassium (3.5-5.1) Sodium (135-145) mmol/L Potassium (3.5-5.1) mmol/L Chloride (98-107) mmol/L Carbon Dioxide (22-30) mmol/L Anion Gap (5-15) MEQ/L BUN (9-20) mg/dL Creatinine (0.66-1.25) mg/dL Estimated GFR ML/MIN Glucose (74-106) mg/dL POC Glucometer (50 to 500) mg/dL Calcium (8.4-10.2) mg/dL Magnesium (1.6-2.3) mg/dL Total Bilirubin (0.2-1.3) mg/dL AST (17-59) U/L ALT (0-50) U/L Alkaline Phosphatase (38-126) U/L Troponin I (0.000-0.033) ng/mL Serum Total Protein (6.3-8.2) g/dL Albumin (3.5-5.0) g/dL Amylase (30-110) U/L Lipase (23-300) U/L Urine Color Yellow (Yellow) Urine Appearance Clear (Clear) Urine pH 6.0 (4.6-8.0) Ur Specific Gideon >=1.030 A (1.005-1.030) Urine Protein Negative (Negative) Urine Glucose (UA) >=1000 A (Negative) mg/dL Urine Ketones 40 A (Negative) Urine Blood Negative (Negative) Urine Nitrite Negative (Negative) Urine Bilirubin Negative (Negative) Urine Urobilinogen 0.2 (0.2) mg/dL Ur Leukocyte Esterase Negative (Negative) U Hyaline Cast (Auto) NONE SEEN (0-2) /LPF Urine Microscopic RBC 0-2 (0-5) /HPF Urine Microscopic WBC 0-2 (0-5) /HPF Ur Epithelial Cells None Seen (None Seen) /HPF Urine Bacteria Moderate A (None Seen) /HPF Urine Yeast (Budding) Few A (None Seen) /HPF Urine Culture Reflexed YES (NO) Urine Opiates Level (NEGATIVE) Ur Methadone (NEGATIVE) Urine Barbiturates (NEGATIVE) Ur Phencyclidine (PCP) (NEGATIVE) Urine Amphetamine (NEGATIVE) U Benzodiazepine Level (NEGATIVE) Urine Cocaine (NEGATIVE) Urine Marijuana (THC) (NEGATIVE) Influenza Type A Ag NEGATIVE (NEGATIVE) Influenza Type B Ag NEGATIVE (NEGATIVE) RSV (PCR) NEGATIVE (NEGATIVE) SARS-CoV-2 (PCR) NEGATIVE (NEGATIVE) Group A Strep Antibody NOT DETECTED (NEGATIVE) 02/20/24 02/20/24 02/20/24 Range/Units 21:29 21:29 21:29 WBC 8.7 (4.23-9.07) x10^3/uL RBC 5.03 (4.63-6.08) x10^6/uL Hgb 14.5 (13.7-17.5) g/dL Hct 43.1 (40.1-51.0) % MCV 85.7 (79.0-92.2) fL MCH 28.8 (25.7-32.2) pg MCHC 33.6 (32.3-36.5) g/dL RDW 13.2 (11.6-14.4) % Plt Count 195 (163-337) x10^3/uL MPV 9.5 (9.4-12.4) fL Gran % 80.3 H (34.0-67.9) % Immature Gran % (Auto) 0.3 (0.001-0.429) % Nucleat RBC Rel Count 0.0 (0.00-0.2) % Eos # (Auto) 0.04 (0.04-0.54) x10^3/uL Immature Gran # (Auto) 0.03 (0.001-0.031) x10^3u/L Absolute Lymphs (auto) 1.14 L (1.32-3.57) x10^3/uL Absolute Monos (auto) 0.48 (0.30-0.82) x10^3/uL Absolute Nucleated RBC 0.00 (0.00-0.012) x10^3u/L Lymphocytes % 13.1 L (21.8-53.1) % Monocytes % 5.5 (5.3-12.2) % Eosinophils % 0.5 L (0.8-7.0) % Basophils % 0.3 (0.2-1.2) % Absolute Granulocytes 7.01 H (1.78-5.38) x10^3/uL Basophils # 0.03 (0.01-0.08) x10^3/uL pO2/FiO2 Ratio % VBG pH (7.32-7.42) VBG pCO2 at Pat Temp (42-55) mm/Hg VBG pO2 at Pat Temp (25-40) mm/Hg VBG HCO3 (22-28) meq/L VBG O2 Sat (Harmeet) (95-100) VBG Base Excess (-2.0-2.0) VBG Hemoglobin VBG Carboxyhemoglobin (0.0-6.9) % T HGB POC Potassium (3.5-5.1) Sodium 132 L (135-145) mmol/L Potassium 4.5 (3.5-5.1) mmol/L Chloride 95 L (98-107) mmol/L Carbon Dioxide 22 (22-30) mmol/L Anion Gap 19.4 H (5-15) MEQ/L BUN 22 H (9-20) mg/dL Creatinine 0.73 (0.66-1.25) mg/dL Estimated GFR 101.0 ML/MIN Glucose 619 H* (74-106) mg/dL POC Glucometer (50 to 500) mg/dL Calcium 8.9 (8.4-10.2) mg/dL Magnesium 1.8 (1.6-2.3) mg/dL Total Bilirubin 0.80 (0.2-1.3) mg/dL AST 33 (17-59) U/L ALT 46 (0-50) U/L Alkaline Phosphatase 115 (38-126) U/L Troponin I < 0.012 (0.000-0.033) ng/mL Serum Total Protein 6.9 (6.3-8.2) g/dL Albumin 4.0 (3.5-5.0) g/dL Amylase 64 (30-110) U/L Lipase 80 (23-300) U/L Urine Color (Yellow) Urine Appearance (Clear) Urine pH (4.6-8.0) Ur Specific Gideon (1.005-1.030) Urine Protein (Negative) Urine Glucose (UA) (Negative) mg/dL Urine Ketones (Negative) Urine Blood (Negative) Urine Nitrite (Negative) Urine Bilirubin (Negative) Urine Urobilinogen (0.2) mg/dL Ur Leukocyte Esterase (Negative) U Hyaline Cast (Auto) (0-2) /LPF Urine Microscopic RBC (0-5) /HPF Urine Microscopic WBC (0-5) /HPF Ur Epithelial Cells (None Seen) /HPF Urine Bacteria (None Seen) /HPF Urine Yeast (Budding) (None Seen) /HPF Urine Culture Reflexed (NO) Urine Opiates Level (NEGATIVE) Ur Methadone (NEGATIVE) Urine Barbiturates (NEGATIVE) Ur Phencyclidine (PCP) (NEGATIVE) Urine Amphetamine (NEGATIVE) U Benzodiazepine Level (NEGATIVE) Urine Cocaine (NEGATIVE) Urine Marijuana (THC) (NEGATIVE) Influenza Type A Ag (NEGATIVE) Influenza Type B Ag (NEGATIVE) RSV (PCR) (NEGATIVE) SARS-CoV-2 (PCR) (NEGATIVE) Group A Strep Antibody (NEGATIVE) 02/20/24 02/20/24 Range/Units 21:25 21:09 WBC (4.23-9.07) x10^3/uL RBC (4.63-6.08) x10^6/uL Hgb (13.7-17.5) g/dL Hct (40.1-51.0) % MCV (79.0-92.2) fL MCH (25.7-32.2) pg MCHC (32.3-36.5) g/dL RDW (11.6-14.4) % Plt Count (163-337) x10^3/uL MPV (9.4-12.4) fL Gran % (34.0-67.9) % Immature Gran % (Auto) (0.001-0.429) % Nucleat RBC Rel Count (0.00-0.2) % Eos # (Auto) (0.04-0.54) x10^3/uL Immature Gran # (Auto) (0.001-0.031) x10^3u/L Absolute Lymphs (auto) (1.32-3.57) x10^3/uL Absolute Monos (auto) (0.30-0.82) x10^3/uL Absolute Nucleated RBC (0.00-0.012) x10^3u/L Lymphocytes % (21.8-53.1) % Monocytes % (5.3-12.2) % Eosinophils % (0.8-7.0) % Basophils % (0.2-1.2) % Absolute Granulocytes (1.78-5.38) x10^3/uL Basophils # (0.01-0.08) x10^3/uL pO2/FiO2 Ratio 21.0 % VBG pH 7.45 H (7.32-7.42) VBG pCO2 at Pat Temp 35 L (42-55) mm/Hg VBG pO2 at Pat Temp 25 (25-40) mm/Hg VBG HCO3 24.3 (22-28) meq/L VBG O2 Sat (Harmeet) 51.8 L (95-100) VBG Base Excess 0.8 (-2.0-2.0) VBG Hemoglobin 15.4 VBG Carboxyhemoglobin 1.8 (0.0-6.9) % T HGB POC Potassium 4.5 (3.5-5.1) Sodium (135-145) mmol/L Potassium (3.5-5.1) mmol/L Chloride (98-107) mmol/L Carbon Dioxide (22-30) mmol/L Anion Gap (5-15) MEQ/L BUN (9-20) mg/dL Creatinine (0.66-1.25) mg/dL Estimated GFR ML/MIN Glucose (74-106) mg/dL POC Glucometer 593 H* (50 to 500) mg/dL Calcium (8.4-10.2) mg/dL Magnesium (1.6-2.3) mg/dL Total Bilirubin (0.2-1.3) mg/dL AST (17-59) U/L ALT (0-50) U/L Alkaline Phosphatase (38-126) U/L Troponin I (0.000-0.033) ng/mL Serum Total Protein (6.3-8.2) g/dL Albumin (3.5-5.0) g/dL Amylase (30-110) U/L Lipase (23-300) U/L Urine Color (Yellow) Urine Appearance (Clear) Urine pH (4.6-8.0) Ur Specific Gideon (1.005-1.030) Urine Protein (Negative) Urine Glucose (UA) (Negative) mg/dL Urine Ketones (Negative) Urine Blood (Negative) Urine Nitrite (Negative) Urine Bilirubin (Negative) Urine Urobilinogen (0.2) mg/dL Ur Leukocyte Esterase (Negative) U Hyaline Cast (Auto) (0-2) /LPF Urine Microscopic RBC (0-5) /HPF Urine Microscopic WBC (0-5) /HPF Ur Epithelial Cells (None Seen) /HPF Urine Bacteria (None Seen) /HPF Urine Yeast (Budding) (None Seen) /HPF Urine Culture Reflexed (NO) Urine Opiates Level (NEGATIVE) Ur Methadone (NEGATIVE) Urine Barbiturates (NEGATIVE) Ur Phencyclidine (PCP) (NEGATIVE) Urine Amphetamine (NEGATIVE) U Benzodiazepine Level (NEGATIVE) Urine Cocaine (NEGATIVE) Urine Marijuana (THC) (NEGATIVE) Influenza Type A Ag (NEGATIVE) Influenza Type B Ag (NEGATIVE) RSV (PCR) (NEGATIVE) SARS-CoV-2 (PCR) (NEGATIVE) Group A Strep Antibody (NEGATIVE) - Progress Progress: unchanged Discussed with : Freeman (Spoke with & discussed pt with Dr. Miles([id number]) - obs) Will see patient in: hospital (observation) Counseled pt/family regarding: lab results, diagnosis, rad results Medical Desision Making - Diagnostic Testing Diagnostic test were ordered, analyzed, and reviewed by me: Yes Radiological Interpretation: Teleradiologist Report - Departure Departure Disposition: Observation Clinical Impression: Bilateral pulmonary embolism, Vomiting, Chest pain, Diabetes, Hyperglycemia Condition: Stable Critical Care Time: Yes Critical Care Time(excluding separately billable procedures): Critical 30-74 mins Referrals: ISIDORO HENDRICKSON DO [Primary Care Provider] - Follow up/PCP as directed
[2024-02-20] MEDS ORDERED: Sodium Chloride 0.9% 1000 ML 1,000 ML ONE (21:25)
[2024-02-20] MEDS ORDERED: HUMULIN R ONE ×2 (21:25→23:10)
[2024-02-20] MEDS: Sodium Chloride 0.9% 1000 ML 1,000 ML IV STA (21:26)
[2024-02-20] MEDS: HUMULIN R IV ONE ×2 (21:27→23:12)
[2024-02-20 21:32] LABS: Absolute Neutrophil Ct (ANC) 7.01 x10^3/uL (1.78-5.38); BASOPHIL % 0.3 % (0.2-1.2); Basophil (Absolute #) 0.03 x10^3/uL (0.01-0.08); Eosinophil % 0.5 % (0.8-7.0); Eosinophil (Absolute #) 0.04 x10^3/uL (0.04-0.54); Hematocrit 43.1 % (40.1-51.0); Hemoglobin 14.5 g/dL (13.7-17.5); IMMATURE GRAN # 0.03 x10^3u/L (0.001-0.031); IMMATURE GRAN % 0.3 % (0.001-0.429); Lymphocyte (Absolute #) 1.14 x10^3/uL (1.32-3.57); Lymphocytes % 13.1 % (21.8-53.1); Mean Cell Volume 85.7 fL (79.0-92.2); Mean Corpuscular Hemoglobin 28.8 pg (25.7-32.2); Mean Corpuscular Hgb Concent. 33.6 g/dL (32.3-36.5); Mean Platelet Volume 9.5 fL (9.4-12.4); Monocyte (Absolute #) 0.48 x10^3/uL (0.30-0.82); Monocytes % 5.5 % (5.3-12.2); Neutrophil % 80.3 % (34.0-67.9); Platelet Count 195 x10^3/uL (163-337); Red Blood Count 5.03 x10^6/uL (4.63-6.08); Red Cell Distribution Width 13.2 % (11.6-14.4); White Blood Count 8.7 x10^3/uL (4.23-9.07)
[2024-02-20 21:34] LABS: VBG BASE EXCESS 0.8 (-2.0-2.0); VBG CARBOXYHEMOGLOBIN 1.8 % T HGB (0.0-6.9); VBG HCO3- 24.3 meq/L (22-28); VBG HEMOGLOBIN 15.4; VBG O2 SATURATION 51.8 (95-100); VBG POTASSIUM 4.5 (3.5-5.1); VBG pH 7.45 (7.32-7.42)
[2024-02-20 21:52] LABS: ANION GAP 19.4 MEQ/L (5-15); BILIRUBIN,TOTAL 0.8 mg/dL (0.2-1.3); Calcium 8.9 mg/dL (8.4-10.2); Creatinine 1 0.73 mg/dL (0.66-1.25); MAGNESIUM 1.8 mg/dL (1.6-2.3); Potassium 4.5 mmol/L (3.5-5.1); Total Protein 6.9 g/dL (6.3-8.2)
[2024-02-20 22:03] LABS: ADD URINE CULTURE? YES (NO); Appearance Clear (Clear); Bacteria Moderate /HPF (None Seen); Bilirubin Negative (Negative); Blood Negative (Negative); Budding Yeast Few /HPF (None Seen); Epithelial Cells None Seen /HPF (None Seen); Glucose, Urine >=1000 mg/dL (Negative); Hyaline Casts NONE SEEN /LPF (0-2); Ketones 40 (Negative); Leukocyte Esterase Negative (Negative); Nitrite Negative (Negative); Protein,Urine Dip Negative (Negative); RBC 0-2 /HPF (0-5); Specific Gravity >=1.030 (1.005-1.030); Urobilinogen 0.2 mg/dL (0.2); WBC 0-2 /HPF (0-5)
[2024-02-20 22:06] LABS: Amphetamine,Urine NEGATIVE (NEGATIVE); Barbiturate,Urine NEGATIVE (NEGATIVE); Benzodiazepine,Urine NEGATIVE (NEGATIVE); Cocaine,Urine NEGATIVE (NEGATIVE); Methadone,Urine NEGATIVE (NEGATIVE); Opiate,Urine NEGATIVE (NEGATIVE); PCP,Urine NEGATIVE (NEGATIVE); THC,Urine NEGATIVE (NEGATIVE)
[2024-02-20 22:19] LABS: INFLUENZA A NEGATIVE (NEGATIVE); INFLUENZA B NEGATIVE (NEGATIVE); RESPIRATORY SYNCTIAL VIRUS NEGATIVE (NEGATIVE); SARS-CoV-2 Xpert Express NEGATIVE (NEGATIVE)
[2024-02-20] MEDS ORDERED: Zofran 4 MG/2 ML VIAL ONE (22:40)
[2024-02-20] MEDS: Zofran 4 MG/2 ML VIAL IV ONE (22:41)
--- NOTE | 2024-02-21 00:02 | XRAY ---
CLINICAL HISTORY: pain COMPARISON: none. TECHNIQUE: Contiguous axial images were obtained from the neck base through the upper abdomen following intravenous administration of contrast material. If IV contrast material had not been administered, the likelihood of detecting abnormalities relevant to the patient's condition would have been substantially decreased. In addition, sagittal and coronal reconstructions were performed. CT scan was performed according to ALARA (as low as reasonable achievable). FINDINGS: Evidence of intraluminal hypodense filling defects are noted involving anterior segmental branches of both upper lobes and left lower lobar artery.- suggestive of pulmonary embolism. The lungs are clear, with no focal areas of consolidation. No pulmonary nodules are seen. The central airways are patent. There are no pleural effusions. No pneumothorax is seen. No axillary, hilar, or mediastinal adenopathy is identified. Hypoenhancing nodule is seen in the left adrenal gland measuring 15 mm - ultrasound correlation is recommended. The heart, aorta, and pulmonary arteries are of normal size and configuration. No pericardial effusion is identified. Imaged portions of the upper abdomen are unremarkable. No aggressive appearing osseous lesions are identified. IMPRESSION: Evidence of intraluminal hypodense filling defects are noted involving anterior segmental branches of both upper lobes and left lower lobar artery.- suggestive of pulmonary embolism. Hypoenhancing nodule is seen in the left adrenal gland measuring 15 mm - ultrasound correlation is recommended. Electronically Signed by: Fawad Dykes MD. (02/20/2024 23:58:04 EDT)
--- NOTE | 2024-02-21 00:02 | XRAY ---
CLINICAL HISTORY: vomiting COMPARISON: none TECHNIQUE: Contiguous axial images were obtained from the level of the diaphragm to the pubic symphysis without and with intravenous contrast. Coronal and sagittal reconstructions were likewise performed and indicated to increase the sensitivity for detecting clinically relevant pathology. If IV contrast material had not been administered, the likelihood of detecting abnormalities relevant to the patient's condition would have been substantially decreased. CT scan was performed according to ALARA (as low as reasonable achievable). FINDINGS: The visualized lung bases are clear. The liver is normal in size and reduced attenuation. No focal liver lesions are seen. There is no intra or extrahepatic biliary ductal dilatation. Hepatic vasculature is patent. The gallbladder is removed. The spleen, pancreas, and adrenal glands are unremarkable. The kidneys are normal in size and attenuation. There is no hydronephrosis or perinephric fat stranding. No renal calculi or renal masses are identified. A simple cyst are noted in right kidneys of size 22 x 24 mm. The ureters are normal in caliber and no ureteral calculi are seen. The bladder is normal in contour. Pelvic viscera are unremarkable. No focal or diffuse bowel wall thickening or evidence of bowel obstruction is identified. Abdominal and pelvic vasculature is patent. No adenopathy or fluid collections are seen. No aggressive appearing osseous lesions are identified. Diffuse atherosclerosis calcification is noted in aorta and its major branches. IMPRESSION: Simple right renal cortical cysts. Hepatic steatosis. No obvious acute intra-abdominal abnormality seen Electronically Signed by: Fawad Dykes MD. (02/20/2024 23:58:45 EDT)
[2024-02-21] MEDS ORDERED: ENOXAPARIN SODIUM SQ ONE (00:25)
[2024-02-21 00:35] LABS: INR 0.99 (0.8-3.0); PROTIME 10.8 SECONDS (9.4-12.5)
[2024-02-21] MEDS ORDERED: HUMULIN R ONE (00:35)
[2024-02-21] MEDS: HUMULIN R SQ ONE (00:36)
[2024-02-21] MEDS: ENOXAPARIN SODIUM SQ ONE (00:40)
[2024-02-21] MEDS ORDERED: BABY ASPIRIN 81 MG CHEW ONE (00:48)
[2024-02-21] MEDS: BABY ASPIRIN 81 MG CHEW PO ONE (00:48)
[2024-02-21] MEDS: ENOXAPARIN SODIUM SQ SCH (00:55)
[2024-02-21] MEDS ORDERED: Zofran 4 MG/2 ML VIAL IV PRN (00:56)
[2024-02-21] MEDS: Sodium Chloride 0.9% 1000 ML 1,000 ML IV SCH (01:58)
--- NOTE | 2024-02-21 02:48 | PCM.HP ---
History of Present Illness - Chief Complaint Chief Complaint: bilateral PE, hyperglycemia Date: 02/21/24 History of Present Illness: Mr. Alejandre is a 63 year-old gentleman with DM2, HTN, and a chart diagnosis of CHF who presents with chest pain. He admits to four days of sharp, mid-chest pain associated with mild shortness of breath along with nausea and vomiting. Upon arrival to [place], he was found to be hypoxic in the setting of laborator y data that was remarkable for hyponatremia and hyperglycemia while CTA chest revealed multiple pulmonary emboli. On my examination, he is resting comfortably denying any fevers, chills, nausea, vomiting, diarrhea, syncope, presyncope, visual changes, orthopnea, PND, odynophagia, dysphagia, chest pain, shortness of breath, belly pain, dysuria, hematuria, melena, hematochezia, or neurological changes. All other systems were reviewed and were negative. Of note, he admits to a sedentary lifestyle but has no history of cancer, no constitutional symptoms, no weight loss, and no recent trips or surgeries. - Review of Systems Constitutional: Other ( PER HPI) Medications & Allergies Home Medications: Home Medication List Pantoprazole Sodium [[id number]] 20 mg PO DAILY 09/23/14 [History Confirmed 02/20/24] Insulin Regular, Human [Novolin R] 14 units SQ DINNER 02/02/19 [History Confirmed 02/20/24] Insulin Regular, Human [Novolin R] 16 units SQ LUNCH 02/02/19 [History Confirmed 02/20/24] Pramipexole Di-HCl [Pramipexole Dihydrochloride] 0.5 mg PO HS 02/02/19 [History Confirmed 02/20/24] Latanoprost/Pf [Latanoprost 0.005% Eye Drop] 1 drop OP HS 05/30/20 [History Confirmed 02/20/24] Sertraline HCl 50 mg [Zoloft 50 mg Tablet] 50 mg PO DAILY 01/30/21 [History Confirmed 02/20/24] Lisinopril 5 mg [Zestril 5 MG] 2.5 mg PO DAILY 11/14/21 [History Confirmed 02/20/24] Empagliflozin [Jardiance] 10 mg PO DAILY 03/21/22 [History Confirmed 02/20/24] Brimonidine Tartrate 1 drop OP TID 09/06/22 [History Confirmed 02/20/24] Dorzolamide/Timolol/Pf [Dorzolamide-Timolol 2%-0.5%] 1 drop OP BID 09/06/22 [History Confirmed 02/20/24] Insulin Regular, Human [NovoLIN R] 14 unit SQ BREAKFAST 09/06/22 [History Confirmed 02/20/24] Netarsudil Mesylate [Rhopressa] 1 drop OP DAILY 09/06/22 [History Confirmed 02/20/24] Amox Tr/Potass Clav. 500 mg [Augmentin 500-125 Tablet] 500 mg PO TID 5 Days #15 tablet 09/07/22 [Rx Confirmed 02/20/24] Allergies/Adverse Reactions: Allergies Allergy/AdvReac Type Severity Reaction Status Date / Time Latex, Natural Rubber Allergy Intermediate Rash Verified 02/20/24 21:22 - Past Medical History Past Medical History: Yes Neurological History: No Pertinent History ENT History: Cataracts, Glaucoma Cardiac History: No Pertinent History, Congestive Heart Failure Respiratory History: No Pertinent History Endocrine Medical History: Diabetes Type II Musculoskelatal History: Osteoarthritis GI Medical History: GERD, Gallbladder Disease History: No Pertinent History Pyscho-Social History: Anxiety, Depression Male Reproductive Disorders: No Pertinent History Comment: OSTEOMYELITIS - Past Surgical History Past Surgical History: Yes Neuro Surgical History: No Pertinent History Cardiac History: No Pertinent History Respiratory Surgery: No Pertinent History GI Surgical History: Appendectomy, Cholecystectomy Genitourinary Surgical Hx: No Pertinent History Musculskeletal Surgical Hx: Amputation Male Surgical History: No Pertinent History Other Surgical History: both feet toes amputation, colonoscopy, EGD, polyp removed Significant Family History: no pertinent family hx - Social History Smoking Status: Never smoker Exposure to second hand smoke: No Alcohol: Rarely Drug Use: none - Social Determinants of Health Will the patient participate in the screening: Yes Do you worry about a steady place to live?: No Do you have any problems with any of the following?: No known problems In the past 12 months,have you had to go without utilities?: No Have you or anyone in your house had to go without enough: No Transportation Issues: No Has anyone in your support network made you feel unsafe?: No Does the patient want assistance with any of the above?: No - Physical Exam Vital Signs: Vital Signs - 24 hr Temp Pulse Resp BP BP Pulse Ox 02/21/24 01:50 88 L 02/21/24 01:00 98.7 F 97 H 18 162/78 97 02/21/24 00:01 89 156/81 97 02/20/24 23:30 114/63 97 02/20/24 23:01 87 164/84 95 02/20/24 22:00 89 146/72 95 02/20/24 21:30 87 146/85 90 L 02/20/24 21:13 145/76 91 L 02/20/24 21:06 98.7 F 92 H 145/76 92 L General Appearance: no apparent distress, alert Neurologic Exam: alert, oriented x 3, cooperative, normal mood/affect, nml cerebellar function, nml station & gait, sensation nml, No motor deficits Eye Exam: PERRL/EOMI, eyes nml inspection Ears, Nose, Throat Exam: normal ENT inspection, TMs normal, pharynx normal, moist mucous membranes Neck Exam: normal inspection, non-tender, supple, full range of motion Respiratory Exam: normal breath sounds, lungs clear, No respiratory distress Cardiovascular Exam: regular rate/rhythm, normal heart sounds, normal peripheral pulses Gastrointestinal/Abdomen Exam: soft, normal bowel sounds, No tenderness, No mass Back Exam: normal inspection, normal range of motion, No CVA tenderness, No vertebral tenderness Extremity Exam: normal inspection, normal range of motion, pelvis stable Skin Exam: normal color, warm, dry, No rash Lymphatic Exam: No adenopathy Results - Labs Lab/Micro Results: Lab Results-Last 24 Hours 02/20/24 02/20/24 02/20/24 Range/Units 21:09 21:25 21:29 WBC 8.7 (4.23-9.07) x10^3/uL RBC 5.03 (4.63-6.08) x10^6/uL Hgb 14.5 (13.7-17.5) g/dL Hct 43.1 (40.1-51.0) % MCV 85.7 (79.0-92.2) fL MCH 28.8 (25.7-32.2) pg MCHC 33.6 (32.3-36.5) g/dL RDW 13.2 (11.6-14.4) % Plt Count 195 (163-337) x10^3/uL MPV 9.5 (9.4-12.4) fL Gran % 80.3 H (34.0-67.9) % Immature Gran % (Auto) 0.3 (0.001-0.429) % Nucleat RBC Rel Count 0.0 (0.00-0.2) % Eos # (Auto) 0.04 (0.04-0.54) x10^3/uL Immature Gran # (Auto) 0.03 (0.001-0.031) x10^3u/L Absolute Lymphs (auto) 1.14 L (1.32-3.57) x10^3/uL Absolute Monos (auto) 0.48 (0.30-0.82) x10^3/uL Absolute Nucleated RBC 0.00 (0.00-0.012) x10^3u/L Lymphocytes % 13.1 L (21.8-53.1) % Monocytes % 5.5 (5.3-12.2) % Eosinophils % 0.5 L (0.8-7.0) % Basophils % 0.3 (0.2-1.2) % Absolute Granulocytes 7.01 H (1.78-5.38) x10^3/uL Basophils # 0.03 (0.01-0.08) x10^3/uL PT (9.4-12.5) SECONDS INR (0.8-3.0) APTT (25.1-36.5) SECONDS pO2/FiO2 Ratio 21.0 % VBG pH 7.45 H (7.32-7.42) VBG pCO2 at Pat Temp 35 L (42-55) mm/Hg VBG pO2 at Pat Temp 25 (25-40) mm/Hg VBG HCO3 24.3 (22-28) meq/L VBG O2 Sat (Harmeet) 51.8 L (95-100) VBG Base Excess 0.8 (-2.0-2.0) VBG Hemoglobin 15.4 VBG Carboxyhemoglobin 1.8 (0.0-6.9) % T HGB POC Potassium 4.5 (3.5-5.1) Sodium (135-145) mmol/L Potassium (3.5-5.1) mmol/L Chloride (98-107) mmol/L Carbon Dioxide (22-30) mmol/L Anion Gap (5-15) MEQ/L BUN (9-20) mg/dL Creatinine (0.66-1.25) mg/dL Estimated GFR ML/MIN Glucose (74-106) mg/dL POC Glucometer 593 H* (50 to 500) mg/dL Calcium (8.4-10.2) mg/dL Magnesium (1.6-2.3) mg/dL Total Bilirubin (0.2-1.3) mg/dL AST (17-59) U/L ALT (0-50) U/L Alkaline Phosphatase (38-126) U/L Troponin I (0.000-0.033) ng/mL Serum Total Protein (6.3-8.2) g/dL Albumin (3.5-5.0) g/dL Amylase (30-110) U/L Lipase (23-300) U/L Urine Color (Yellow) Urine Appearance (Clear) Urine pH (4.6-8.0) Ur Specific [place] (1.005-1.030) Urine Protein (Negative) Urine Glucose (UA) (Negative) mg/dL Urine Ketones (Negative) Urine Blood (Negative) Urine Nitrite (Negative) Urine Bilirubin (Negative) Urine Urobilinogen (0.2) mg/dL Ur Leukocyte Esterase (Negative) U Hyaline Cast (Auto) (0-2) /LPF Urine Microscopic RBC (0-5) /HPF Urine Microscopic WBC (0-5) /HPF Ur Epithelial Cells (None Seen) /HPF Urine Bacteria (None Seen) /HPF Urine Yeast (Budding) (None Seen) /HPF Urine Culture Reflexed (NO) Urine Opiates Level (NEGATIVE) Ur Methadone (NEGATIVE) Urine Barbiturates (NEGATIVE) Ur Phencyclidine (PCP) (NEGATIVE) Urine Amphetamine (NEGATIVE) U Benzodiazepine Level (NEGATIVE) Urine Cocaine (NEGATIVE) Urine Marijuana (THC) (NEGATIVE) Influenza Type A Ag (NEGATIVE) Influenza Type B Ag (NEGATIVE) RSV (PCR) (NEGATIVE) SARS-CoV-2 (PCR) (NEGATIVE) Group A Strep Antibody (NEGATIVE) 08/30/24 08/30/24 08/30/24 Range/Units 21:29 21:29 21:29 WBC (4.23-9.07) x10^3/uL RBC (4.63-6.08) x10^6/uL Hgb (13.7-17.5) g/dL Hct (40.1-51.0) % MCV (79.0-92.2) fL MCH (25.7-32.2) pg MCHC (32.3-36.5) g/dL RDW (11.6-14.4) % Plt Count (163-337) x10^3/uL MPV (9.4-12.4) fL Gran % (34.0-67.9) % Immature Gran % (Auto) (0.001-0.429) % Nucleat RBC Rel Count (0.00-0.2) % Eos # (Auto) (0.04-0.54) x10^3/uL Immature Gran # (Auto) (0.001-0.031) x10^3u/L Absolute Lymphs (auto) (1.32-3.57) x10^3/uL Absolute Monos (auto) (0.30-0.82) x10^3/uL Absolute Nucleated RBC (0.00-0.012) x10^3u/L Lymphocytes % (21.8-53.1) % Monocytes % (5.3-12.2) % Eosinophils % (0.8-7.0) % Basophils % (0.2-1.2) % Absolute Granulocytes (1.78-5.38) x10^3/uL Basophils # (0.01-0.08) x10^3/uL PT (9.4-12.5) SECONDS INR (0.8-3.0) APTT (25.1-36.5) SECONDS pO2/FiO2 Ratio % VBG pH (7.32-7.42) VBG pCO2 at Pat Temp (42-55) mm/Hg VBG pO2 at Pat Temp (25-40) mm/Hg VBG HCO3 (22-28) meq/L VBG O2 Sat (Harmeet) (95-100) VBG Base Excess (-2.0-2.0) VBG Hemoglobin VBG Carboxyhemoglobin (0.0-6.9) % T HGB POC Potassium (3.5-5.1) Sodium 132 L (135-145) mmol/L Potassium 4.5 (3.5-5.1) mmol/L Chloride 95 L (98-107) mmol/L Carbon Dioxide 22 (22-30) mmol/L Anion Gap 19.4 H (5-15) MEQ/L BUN 22 H (9-20) mg/dL Creatinine 0.73 (0.66-1.25) mg/dL Estimated GFR 101.0 ML/MIN Glucose 619 H* (74-106) mg/dL POC Glucometer (50 to 500) mg/dL Calcium 8.9 (8.4-10.2) mg/dL Magnesium 1.8 (1.6-2.3) mg/dL Total Bilirubin 0.80 (0.2-1.3) mg/dL AST 33 (17-59) U/L ALT 46 (0-50) U/L Alkaline Phosphatase 115 (38-126) U/L Troponin I < 0.012 (0.000-0.033) ng/mL Serum Total Protein 6.9 (6.3-8.2) g/dL Albumin 4.0 (3.5-5.0) g/dL Amylase 64 (30-110) U/L Lipase 80 (23-300) U/L Urine Color (Yellow) Urine Appearance (Clear) Urine pH (4.6-8.0) Ur Specific [place] (1.005-1.030) Urine Protein (Negative) Urine Glucose (UA) (Negative) mg/dL Urine Ketones (Negative) Urine Blood (Negative) Urine Nitrite (Negative) Urine Bilirubin (Negative) Urine Urobilinogen (0.2) mg/dL Ur Leukocyte Esterase (Negative) U Hyaline Cast (Auto) (0-2) /LPF Urine Microscopic RBC (0-5) /HPF Urine Microscopic WBC (0-5) /HPF Ur Epithelial Cells (None Seen) /HPF Urine Bacteria (None Seen) /HPF Urine Yeast (Budding) (None Seen) /HPF Urine Culture Reflexed (NO) Urine Opiates Level (NEGATIVE) Ur Methadone (NEGATIVE) Urine Barbiturates (NEGATIVE) Ur Phencyclidine (PCP) (NEGATIVE) Urine Amphetamine (NEGATIVE) U Benzodiazepine Level (NEGATIVE) Urine Cocaine (NEGATIVE) Urine Marijuana (THC) (NEGATIVE) Influenza Type A Ag (NEGATIVE) Influenza Type B Ag (NEGATIVE) RSV (PCR) (NEGATIVE) SARS-CoV-2 (PCR) (NEGATIVE) Group A Strep Antibody NOT DETECTED (NEGATIVE) 02/20/24 02/20/24 02/20/24 Range/Units 21:29 21:44 21:44 WBC (4.23-9.07) x10^3/uL RBC (4.63-6.08) x10^6/uL Hgb (13.7-17.5) g/dL Hct (40.1-51.0) % MCV (79.0-92.2) fL MCH (25.7-32.2) pg MCHC (32.3-36.5) g/dL RDW (11.6-14.4) % Plt Count (163-337) x10^3/uL MPV (9.4-12.4) fL Gran % (34.0-67.9) % Immature Gran % (Auto) (0.001-0.429) % Nucleat RBC Rel Count (0.00-0.2) % Eos # (Auto) (0.04-0.54) x10^3/uL Immature Gran # (Auto) (0.001-0.031) x10^3u/L Absolute Lymphs (auto) (1.32-3.57) x10^3/uL Absolute Monos (auto) (0.30-0.82) x10^3/uL Absolute Nucleated RBC (0.00-0.012) x10^3u/L Lymphocytes % (21.8-53.1) % Monocytes % (5.3-12.2) % Eosinophils % (0.8-7.0) % Basophils % (0.2-1.2) % Absolute Granulocytes (1.78-5.38) x10^3/uL Basophils # (0.01-0.08) x10^3/uL PT (9.4-12.5) SECONDS INR (0.8-3.0) APTT (25.1-36.5) SECONDS pO2/FiO2 Ratio % VBG pH (7.32-7.42) VBG pCO2 at Pat Temp (42-55) mm/Hg VBG pO2 at Pat Temp (25-40) mm/Hg VBG HCO3 (22-28) meq/L VBG O2 Sat (Harmeet) (95-100) VBG Base Excess (-2.0-2.0) VBG Hemoglobin VBG Carboxyhemoglobin (0.0-6.9) % T HGB POC Potassium (3.5-5.1) Sodium (135-145) mmol/L Potassium (3.5-5.1) mmol/L Chloride (98-107) mmol/L Carbon Dioxide (22-30) mmol/L Anion Gap (5-15) MEQ/L BUN (9-20) mg/dL Creatinine (0.66-1.25) mg/dL Estimated GFR ML/MIN Glucose (74-106) mg/dL POC Glucometer (50 to 500) mg/dL Calcium (8.4-10.2) mg/dL Magnesium (1.6-2.3) mg/dL Total Bilirubin (0.2-1.3) mg/dL AST (17-59) U/L ALT (0-50) U/L Alkaline Phosphatase (38-126) U/L Troponin I (0.000-0.033) ng/mL Serum Total Protein (6.3-8.2) g/dL Albumin (3.5-5.0) g/dL Amylase (30-110) U/L Lipase (23-300) U/L Urine Color Yellow (Yellow) Urine Appearance Clear (Clear) Urine pH 6.0 (4.6-8.0) Ur Specific [place] >=1.030 A (1.005-1.030) Urine Protein Negative (Negative) Urine Glucose (UA) >=1000 A (Negative) mg/dL Urine Ketones 40 A (Negative) Urine Blood Negative (Negative) Urine Nitrite Negative (Negative) Urine Bilirubin Negative (Negative) Urine Urobilinogen 0.2 (0.2) mg/dL Ur Leukocyte Esterase Negative (Negative) U Hyaline Cast (Auto) NONE SEEN (0-2) /LPF Urine Microscopic RBC 0-2 (0-5) /HPF Urine Microscopic WBC 0-2 (0-5) /HPF Ur Epithelial Cells None Seen (None Seen) /HPF Urine Bacteria Moderate A (None Seen) /HPF Urine Yeast (Budding) Few A (None Seen) /HPF Urine Culture Reflexed YES (NO) Urine Opiates Level NEGATIVE (NEGATIVE) Ur Methadone NEGATIVE (NEGATIVE) Urine Barbiturates NEGATIVE (NEGATIVE) Ur Phencyclidine (PCP) NEGATIVE (NEGATIVE) Urine Amphetamine NEGATIVE (NEGATIVE) U Benzodiazepine Level NEGATIVE (NEGATIVE) Urine Cocaine NEGATIVE (NEGATIVE) Urine Marijuana (THC) NEGATIVE (NEGATIVE) Influenza Type A Ag NEGATIVE (NEGATIVE) Influenza Type B Ag NEGATIVE (NEGATIVE) RSV (PCR) NEGATIVE (NEGATIVE) SARS-CoV-2 (PCR) NEGATIVE (NEGATIVE) Group A Strep Antibody (NEGATIVE) 02/20/24 02/21/24 02/21/24 Range/Units 23:03 00:10 00:25 WBC (4.23-9.07) x10^3/uL RBC (4.63-6.08) x10^6/uL Hgb (13.7-17.5) g/dL Hct (40.1-51.0) % MCV (79.0-92.2) fL MCH (25.7-32.2) pg MCHC (32.3-36.5) g/dL RDW (11.6-14.4) % Plt Count (163-337) x10^3/uL MPV (9.4-12.4) fL Gran % (34.0-67.9) % Immature Gran % (Auto) (0.001-0.429) % Nucleat RBC Rel Count (0.00-0.2) % Eos # (Auto) (0.04-0.54) x10^3/uL Immature Gran # (Auto) (0.001-0.031) x10^3u/L Absolute Lymphs (auto) (1.32-3.57) x10^3/uL Absolute Monos (auto) (0.30-0.82) x10^3/uL Absolute Nucleated RBC (0.00-0.012) x10^3u/L Lymphocytes % (21.8-53.1) % Monocytes % (5.3-12.2) % Eosinophils % (0.8-7.0) % Basophils % (0.2-1.2) % Absolute Granulocytes (1.78-5.38) x10^3/uL Basophils # (0.01-0.08) x10^3/uL PT 10.8 (9.4-12.5) SECONDS INR 0.99 (0.8-3.0) APTT 25.0 L (25.1-36.5) SECONDS pO2/FiO2 Ratio % VBG pH (7.32-7.42) VBG pCO2 at Pat Temp (42-55) mm/Hg VBG pO2 at Pat Temp (25-40) mm/Hg VBG HCO3 (22-28) meq/L VBG O2 Sat (Harmeet) (95-100) VBG Base Excess (-2.0-2.0) VBG Hemoglobin VBG Carboxyhemoglobin (0.0-6.9) % T HGB POC Potassium (3.5-5.1) Sodium (135-145) mmol/L Potassium (3.5-5.1) mmol/L Chloride (98-107) mmol/L Carbon Dioxide (22-30) mmol/L Anion Gap (5-15) MEQ/L BUN (9-20) mg/dL Creatinine (0.66-1.25) mg/dL Estimated GFR ML/MIN Glucose (74-106) mg/dL POC Glucometer 428 H 357 H (50 to 500) mg/dL Calcium (8.4-10.2) mg/dL Magnesium (1.6-2.3) mg/dL Total Bilirubin (0.2-1.3) mg/dL AST (17-59) U/L ALT (0-50) U/L Alkaline Phosphatase (38-126) U/L Troponin I (0.000-0.033) ng/mL Serum Total Protein (6.3-8.2) g/dL Albumin (3.5-5.0) g/dL Amylase (30-110) U/L Lipase (23-300) U/L Urine Color (Yellow) Urine Appearance (Clear) Urine pH (4.6-8.0) Ur Specific [place] (1.005-1.030) Urine Protein (Negative) Urine Glucose (UA) (Negative) mg/dL Urine Ketones (Negative) Urine Blood (Negative) Urine Nitrite (Negative) Urine Bilirubin (Negative) Urine Urobilinogen (0.2) mg/dL Ur Leukocyte Esterase (Negative) U Hyaline Cast (Auto) (0-2) /LPF Urine Microscopic RBC (0-5) /HPF Urine Microscopic WBC (0-5) /HPF Ur Epithelial Cells (None Seen) /HPF Urine Bacteria (None Seen) /HPF Urine Yeast (Budding) (None Seen) /HPF Urine Culture Reflexed (NO) Urine Opiates Level (NEGATIVE) Ur Methadone (NEGATIVE) Urine Barbiturates (NEGATIVE) Ur Phencyclidine (PCP) (NEGATIVE) Urine Amphetamine (NEGATIVE) U Benzodiazepine Level (NEGATIVE) Urine Cocaine (NEGATIVE) Urine Marijuana (THC) (NEGATIVE) Influenza Type A Ag (NEGATIVE) Influenza Type B Ag (NEGATIVE) RSV (PCR) (NEGATIVE) SARS-CoV-2 (PCR) (NEGATIVE) Group A Strep Antibody (NEGATIVE) 02/21/24 Range/Units 01:15 WBC (4.23-9.07) x10^3/uL RBC (4.63-6.08) x10^6/uL Hgb (13.7-17.5) g/dL Hct (40.1-51.0) % MCV (79.0-92.2) fL MCH (25.7-32.2) pg MCHC (32.3-36.5) g/dL RDW (11.6-14.4) % Plt Count (163-337) x10^3/uL MPV (9.4-12.4) fL Gran % (34.0-67.9) % Immature Gran % (Auto) (0.001-0.429) % Nucleat RBC Rel Count (0.00-0.2) % Eos # (Auto) (0.04-0.54) x10^3/uL Immature Gran # (Auto) (0.001-0.031) x10^3u/L Absolute Lymphs (auto) (1.32-3.57) x10^3/uL Absolute Monos (auto) (0.30-0.82) x10^3/uL Absolute Nucleated RBC (0.00-0.012) x10^3u/L Lymphocytes % (21.8-53.1) % Monocytes % (5.3-12.2) % Eosinophils % (0.8-7.0) % Basophils % (0.2-1.2) % Absolute Granulocytes (1.78-5.38) x10^3/uL Basophils # (0.01-0.08) x10^3/uL PT (9.4-12.5) SECONDS INR (0.8-3.0) APTT (25.1-36.5) SECONDS pO2/FiO2 Ratio % VBG pH (7.32-7.42) VBG pCO2 at Pat Temp (42-55) mm/Hg VBG pO2 at Pat Temp (25-40) mm/Hg VBG HCO3 (22-28) meq/L VBG O2 Sat (Harmeet) (95-100) VBG Base Excess (-2.0-2.0) VBG Hemoglobin VBG Carboxyhemoglobin (0.0-6.9) % T HGB POC Potassium (3.5-5.1) Sodium (135-145) mmol/L Potassium (3.5-5.1) mmol/L Chloride (98-107) mmol/L Carbon Dioxide (22-30) mmol/L Anion Gap (5-15) MEQ/L BUN (9-20) mg/dL Creatinine (0.66-1.25) mg/dL Estimated GFR ML/MIN Glucose (74-106) mg/dL POC Glucometer (50 to 500) mg/dL Calcium (8.4-10.2) mg/dL Magnesium (1.6-2.3) mg/dL Total Bilirubin (0.2-1.3) mg/dL AST (17-59) U/L ALT (0-50) U/L Alkaline Phosphatase (38-126) U/L Troponin I < 0.012 (0.000-0.033) ng/mL Serum Total Protein (6.3-8.2) g/dL Albumin (3.5-5.0) g/dL Amylase (30-110) U/L Lipase (23-300) U/L Urine Color (Yellow) Urine Appearance (Clear) Urine pH (4.6-8.0) Ur Specific [place] (1.005-1.030) Urine Protein (Negative) Urine Glucose (UA) (Negative) mg/dL Urine Ketones (Negative) Urine Blood (Negative) Urine Nitrite (Negative) Urine Bilirubin (Negative) Urine Urobilinogen (0.2) mg/dL Ur Leukocyte Esterase (Negative) U Hyaline Cast (Auto) (0-2) /LPF Urine Microscopic RBC (0-5) /HPF Urine Microscopic WBC (0-5) /HPF Ur Epithelial Cells (None Seen) /HPF Urine Bacteria (None Seen) /HPF Urine Yeast (Budding) (None Seen) /HPF Urine Culture Reflexed (NO) Urine Opiates Level (NEGATIVE) Ur Methadone (NEGATIVE) Urine Barbiturates (NEGATIVE) Ur Phencyclidine (PCP) (NEGATIVE) Urine Amphetamine (NEGATIVE) U Benzodiazepine Level (NEGATIVE) Urine Cocaine (NEGATIVE) Urine Marijuana (THC) (NEGATIVE) Influenza Type A Ag (NEGATIVE) Influenza Type B Ag (NEGATIVE) RSV (PCR) (NEGATIVE) SARS-CoV-2 (PCR) (NEGATIVE) Group A Strep Antibody (NEGATIVE) Accuchecks Date 02/20/24 Time 23:03 - Radiology Impressions Radiology Exams & Impressions: Radiology Procedures Category Date Time Status ABDOMEN AND PELVIS W CONTRAST [CT] Stat Exams 02/20/24 21:13 Completed CHEST WITH CONTRAST [CT] Stat Exams 02/20/24 21:14 Completed - Other Procedures and Tests Respiratory Therapy 02/21/24 00:56 EKG REPEAT IN AM Respiratory Therapy Consult ONCE Assessment/Plan (1) Bilateral pulmonary embolism Current Visit: Yes Status: Acute Assessment & Plan: ASSESSMENT 1. Acute Hypoxemic Respiratory Failure 2. Bilateral Pulmonary Emboli 3. Hyponatremia 4. Type II Diabetes Mellitus 5. Hypertension 6. Chart Diagnosis of CHF PLAN 1. Wean oxygen to maintain SaO2 > 90%; currently on 3L NC; will need home oxygen evaluation prior to discharge 2. Continue Lovenox BID - can transition to Eliquis in AM 3. Echo in AM 4. q4hr CBG - MDISS 5. Continue home medications for diabetes and cardiac regimen Lovenox BID The entirety of this encounter was done via telemedicine with audio and visual. Consent was obtained for a telemedicine encounter. Alexis Miles MD Pulmonary and Critical Care Medicine Code(s): I26.99 - OTHER PULMONARY EMBOLISM WITHOUT ACUTE COR PULMONALE Telemedicine Encounter - Telemedicine Encounter Telemedicine Encounter: "The entirety of this encounter was performed via Telemedicine" This visit was performed using real-time audio and video connection between my location and thepatients locationwith the assistance of a surrogateat the patients location. Written or verbal consent was obtained from the patient/guardian to perform this visit [facility]. Any patient questions regarding the telemedicine interaction were answered.
[2024-02-21] MEDS: HUMALOG SQ PRN (04:32)
[2024-02-21 06:03] LABS: Absolute Neutrophil Ct (ANC) 5.83 x10^3/uL (1.78-5.38); BASOPHIL % 0.2 % (0.2-1.2); Basophil (Absolute #) 0.02 x10^3/uL (0.01-0.08); Eosinophil % 1.3 % (0.8-7.0); Eosinophil (Absolute #) 0.11 x10^3/uL (0.04-0.54); Hematocrit 38.9 % (40.1-51.0); Hemoglobin 13.1 g/dL (13.7-17.5); IMMATURE GRAN # 0.02 x10^3u/L (0.001-0.031); IMMATURE GRAN % 0.2 % (0.001-0.429); Lymphocyte (Absolute #) 2.13 x10^3/uL (1.32-3.57); Lymphocytes % 24.7 % (21.8-53.1); Mean Cell Volume 85.5 fL (79.0-92.2); Mean Corpuscular Hemoglobin 28.8 pg (25.7-32.2); Mean Corpuscular Hgb Concent. 33.7 g/dL (32.3-36.5); Mean Platelet Volume 9.8 fL (9.4-12.4); Monocyte (Absolute #) 0.52 x10^3/uL (0.30-0.82); Neutrophil % 67.6 % (34.0-67.9); Platelet Count 178 x10^3/uL (163-337); Red Blood Count 4.55 x10^6/uL (4.63-6.08); Red Cell Distribution Width 13.3 % (11.6-14.4); White Blood Count 8.6 x10^3/uL (4.23-9.07)
[2024-02-21 06:18] LABS: ALBUMIN 3.3 g/dL (3.5-5.0); ANION GAP 11.4 MEQ/L (5-15); BILIRUBIN,TOTAL 0.6 mg/dL (0.2-1.3); Calcium 8.1 mg/dL (8.4-10.2); Creatinine 1 0.63 mg/dL (0.66-1.25); EST GLOMERULAR FILTRATION RATE 105.6 ML/MIN; Potassium 3.2 mmol/L (3.5-5.1); Total Protein 6.3 g/dL (6.3-8.2)
[2024-02-21 06:25] LABS: INR 1.02 (0.8-3.0); PROTIME 11.1 SECONDS (9.4-12.5)
[2024-02-21] MEDS: HUMULIN R SQ SCH ×2 (08:00→12:12)
[2024-02-21] MEDS: ELIQUIS 2.5 MG TABLET PO SCH (09:38)
[2024-02-21] MEDS: Diflucan 100 MG PO SCH (09:38)
[2024-02-21] MEDS: Klor Con PO SCH (09:38)
[2024-02-21] MEDS: Zestril 5 MG PO SCH (09:38)
[2024-02-21] MEDS: Protonix 20MG Tablet PO SCH (09:39)
[2024-02-21] MEDS: ZOLOFT 50 MG TABLET PO SCH (09:39)
[2024-02-21] MEDS: JARDIANCE PO SCH (09:40)
[2024-02-21] MEDS: ROCEPHIN 1 GM / 100 ML NaCl 1 GM/100 ML IVPB IV SCH (09:40)
[2024-02-21] MEDS ORDERED: ENOXAPARIN SODIUM SQ SCH (10:00)
[2024-02-21] MEDS ORDERED: INSULIN REGULAR HUMAN SQ SCH (17:00)
[2024-02-21] MEDS: Mirapex 0.5 MG Tablet PO SCH (21:02)
[2024-02-22] MEDS: Zofran 4 MG/2 ML VIAL IV PRN (03:47)
[2024-02-22] MEDS: TYLENOL 325 MG PO PRN (04:26)
[2024-02-22 06:29] LABS: Hematocrit 42.6 % (40.1-51.0); Hemoglobin 13.5 g/dL (13.7-17.5); Mean Cell Volume 89.5 fL (79.0-92.2); Mean Corpuscular Hemoglobin 28.4 pg (25.7-32.2); Mean Corpuscular Hgb Concent. 31.7 g/dL (32.3-36.5); Mean Platelet Volume 9.4 fL (9.4-12.4); Platelet Count 178 x10^3/uL (163-337); Red Blood Count 4.76 x10^6/uL (4.63-6.08); Red Cell Distribution Width 13.6 % (11.6-14.4)
[2024-02-22 06:47] LABS: ALBUMIN 3.1 g/dL (3.5-5.0); ANION GAP 16.2 MEQ/L (5-15); BILIRUBIN,TOTAL 0.6 mg/dL (0.2-1.3); Creatinine 1 0.65 mg/dL (0.66-1.25); EST GLOMERULAR FILTRATION RATE 104.6 ML/MIN; Potassium 4.7 mmol/L (3.5-5.1)
[2024-02-22] MEDS: Sodium Chloride 0.9% 1000 ML 1,000 ML IV SCH (09:30)
--- NOTE | 2024-02-22 11:29 | PCM.NOTE ---
Date and Time: 02/22/24 1123 Subjective Assessment: 02/22/24 Mr. Alejandre is a 63 year-old gentleman with DM2, HTN, and a chart diagnosis of CHF. 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 He presented with chest pain on 02/21/24. He admits to four days of sharp, mid-chest pain associated with mild shortness of breath along with nausea and vomiting. Upon arrival to [place], he was found to be hypoxic in the setting of laboratory data that was remarkable for hyponatremia and hyperglycemia while CTA chest revealed multiple pulmonary emboli. Of note, he admits to a sedentary lifestyle but has no history of cancer, no constitutional symptoms, no weight loss, and no recent trips or surgeries. Yesterday he was started on Eliquis. 10mg BID. He is on 1lNC at 94%. Rocephin stopped as UC negative. Today he feels food is stuck in his throat. consulted and does not feel he needs any procedure at this time. Started on a soft diet. Continue Protonix. He is awaiting and echo as it can not be done on weekends. Corrected Ca+ 8.3. He denies any further concerns at this time. - Review of Systems Constitutional: No Fever, No Chills Eyes: No Symptoms Ears, Nose, & Throat: No Symptoms, Painful Swallowing (feels food gets stuck in throat) Respiratory: Cough, Short Of Breath Cardiac: No Chest Pain, No Edema, No Syncope Abdominal/Gastrointestinal: No Abdominal Pain, No Nausea, No Vomiting, No Diarrhea Genitourinary Symptoms: No Dysuria Musculoskeletal: No Back Pain, No Neck Pain Skin: No Rash Neurological: No Dizziness, No Focal Weakness, No Sensory Changes Psychological: No Symptoms Endocrine: No Symptoms Hematologic/Lymphatic: No Symptoms Immunological/Allergic: No Symptoms Objective Exam General Appearance: no apparent distress, alert Neurologic Exam: alert, oriented x 3, cooperative, normal mood/affect, nml cerebellar function, sensation nml, No motor deficits Skin Exam: normal color, warm, dry Eye Exam: PERRL, EOMI, eyes nml inspection Ears, Nose, Throat Exam: normal ENT inspection, pharynx normal, moist mucous membranes Neck Exam: normal inspection, non-tender, supple, full range of motion Respiratory Exam: normal breath sounds, lungs clear, No respiratory distress Cardiovascular Exam: regular rate/rhythm, normal heart sounds Gastrointestinal/Abdomen Exam: soft, No tenderness, No mass Extremity Exam: normal inspection, normal range of motion Back Exam: normal inspection, normal range of motion, No CVA tenderness, No vertebral tenderness Male Genitalia Exam: deferred Rectal Exam: deferred Objective Data Vital Signs: Vital Signs - 24 hr Temp Pulse Resp BP Pulse Ox 02/22/24 10:43 86 L 02/22/24 07:48 97.9 F 74 18 152/69 98 02/22/24 04:09 97.9 F 71 16 147/70 94 L 02/21/24 23:39 97.9 F 67 16 123/57 96 02/21/24 19:44 97.8 F 77 16 114/56 95 02/21/24 19:35 94 L 02/21/24 16:00 97.1 F 77 25 H 101/67 99 02/21/24 12:00 97.3 F 80 12 137/70 93 L Pain Assessment - Last Documented Pain Intensity 0 Pain Scale Used 0-10 Pain Scale Intake and Output: Intake & Output 02/19/24 02/20/24 02/21/24 02/22/24 11:59 11:59 11:59 11:59 Intake Total 648 3373 Output Total 300 1100 Balance 348 2273 Weight 77.5 kg Lab Results: Lab Results-Last 24 Hours 02/21/24 02/21/24 02/21/24 Range/Units 12:01 16:15 19:58 WBC (4.23-9.07) x10^3/uL RBC (4.63-6.08) x10^6/uL Hgb (13.7-17.5) g/dL Hct (40.1-51.0) % MCV (79.0-92.2) fL MCH (25.7-32.2) pg MCHC (32.3-36.5) g/dL RDW (11.6-14.4) % Plt Count (163-337) x10^3/uL MPV (9.4-12.4) fL Sodium (135-145) mmol/L Potassium (3.5-5.1) mmol/L Chloride (98-107) mmol/L Carbon Dioxide (22-30) mmol/L Anion Gap (5-15) MEQ/L BUN (9-20) mg/dL Creatinine (0.66-1.25) mg/dL Estimated GFR ML/MIN Glucose (74-106) mg/dL POC Glucometer 207 H 128 H 108 H (74 to 106) mg/dL Calcium (8.4-10.2) mg/dL Magnesium (1.6-2.3) mg/dL Total Bilirubin (0.2-1.3) mg/dL AST (17-59) U/L ALT (0-50) U/L Alkaline Phosphatase (38-126) U/L Serum Total Protein (6.3-8.2) g/dL Albumin (3.5-5.0) g/dL 02/21/24 02/22/24 02/22/24 Range/Units 23:53 04:17 05:30 WBC (4.23-9.07) x10^3/uL RBC (4.63-6.08) x10^6/uL Hgb (13.7-17.5) g/dL Hct (40.1-51.0) % MCV (79.0-92.2) fL MCH (25.7-32.2) pg MCHC (32.3-36.5) g/dL RDW (11.6-14.4) % Plt Count (163-337) x10^3/uL MPV (9.4-12.4) fL Sodium (135-145) mmol/L Potassium (3.5-5.1) mmol/L Chloride (98-107) mmol/L Carbon Dioxide (22-30) mmol/L Anion Gap (5-15) MEQ/L BUN (9-20) mg/dL Creatinine (0.66-1.25) mg/dL Estimated GFR ML/MIN Glucose (74-106) mg/dL POC Glucometer 170 H 218 H (74 to 106) mg/dL Calcium (8.4-10.2) mg/dL Magnesium 2.0 (1.6-2.3) mg/dL Total Bilirubin (0.2-1.3) mg/dL AST (17-59) U/L ALT (0-50) U/L Alkaline Phosphatase (38-126) U/L Serum Total Protein (6.3-8.2) g/dL Albumin (3.5-5.0) g/dL 02/22/24 02/22/24 02/22/24 Range/Units 05:30 05:30 07:16 WBC 7.0 (4.23-9.07) x10^3/uL RBC 4.76 (4.63-6.08) x10^6/uL Hgb 13.5 L (13.7-17.5) g/dL Hct 42.6 (40.1-51.0) % MCV 89.5 (79.0-92.2) fL MCH 28.4 (25.7-32.2) pg MCHC 31.7 L (32.3-36.5) g/dL RDW 13.6 (11.6-14.4) % Plt Count 178 (163-337) x10^3/uL MPV 9.4 (9.4-12.4) fL Sodium 139 (135-145) mmol/L Potassium 4.7 D (3.5-5.1) mmol/L Chloride 110 H (98-107) mmol/L Carbon Dioxide 18 L (22-30) mmol/L Anion Gap 16.2 H (5-15) MEQ/L BUN 15 (9-20) mg/dL Creatinine 0.65 L (0.66-1.25) mg/dL Estimated GFR 104.6 ML/MIN Glucose 192 H (74-106) mg/dL POC Glucometer 160 H (74 to 106) mg/dL Calcium 8.0 L (8.4-10.2) mg/dL Magnesium (1.6-2.3) mg/dL Total Bilirubin 0.60 (0.2-1.3) mg/dL AST 42 (17-59) U/L ALT 34 (0-50) U/L Alkaline Phosphatase 85 (38-126) U/L Serum Total Protein 6.0 L (6.3-8.2) g/dL Albumin 3.1 L (3.5-5.0) g/dL 02/22/24 Range/Units 11:16 WBC (4.23-9.07) x10^3/uL RBC (4.63-6.08) x10^6/uL Hgb (13.7-17.5) g/dL Hct (40.1-51.0) % MCV (79.0-92.2) fL MCH (25.7-32.2) pg MCHC (32.3-36.5) g/dL RDW (11.6-14.4) % Plt Count (163-337) x10^3/uL MPV (9.4-12.4) fL Sodium (135-145) mmol/L Potassium (3.5-5.1) mmol/L Chloride (98-107) mmol/L Carbon Dioxide (22-30) mmol/L Anion Gap (5-15) MEQ/L BUN (9-20) mg/dL Creatinine (0.66-1.25) mg/dL Estimated GFR ML/MIN Glucose (74-106) mg/dL POC Glucometer 137 H (74 to 106) mg/dL Calcium (8.4-10.2) mg/dL Magnesium (1.6-2.3) mg/dL Total Bilirubin (0.2-1.3) mg/dL AST (17-59) U/L ALT (0-50) U/L Alkaline Phosphatase (38-126) U/L Serum Total Protein (6.3-8.2) g/dL Albumin (3.5-5.0) g/dL Radiology Exams: Radiology Procedures Category Date Time Status ABDOMEN AND PELVIS W CONTRAST [CT] Stat Exams 02/20/24 21:13 Completed CHEST WITH CONTRAST [CT] Stat Exams 02/20/24 21:14 Completed ECHO W/2D AND DOPPLER [US] Routine Exams 02/23/24 08:00 Ordered Assessment/Plan (1) Bilateral pulmonary embolism Current Visit: Yes Status: Acute Assessment & Plan: - Eliquis 10mg BID started yesterday - IS - Echo pending - EKG - Tele - Consider VQ Friday of BLLE- wears braces all the time on BLLE no erythema or edema noted at this time. - Chest CT: IMPRESSION: Evidence of intraluminal hypodense filling defects are noted involving anterior segmental branches of both upper lobes and left lower lobar artery.- suggestive of pulmonary embolism. Hypoenhancing nodule is seen in the left adrenal gland measuring 15 mm - ultrasound correlation is recommended. Code(s): I26.99 - OTHER PULMONARY EMBOLISM WITHOUT ACUTE COR PULMONALE (2) Shortness of breath at rest Current Visit: Yes Status: Acute Assessment & Plan: - On 1LNC- 94% - RT order to wean o2- pt states he got very SOB and they were unable to do so. - IS - 2:2 BL PE Code(s): R06.02 - SHORTNESS OF BREATH (3) Difficulty swallowing solids Current Visit: Yes Status: Acute Assessment & Plan: - GS consult- NO need at this time for procedure - Soft diet Code(s): R13.10 - DYSPHAGIA, UNSPECIFIED (4) Chest pain Current Visit: Yes Status: Acute Assessment & Plan: - resolved - Trop x3 negative - echo pending - no CXR but CT - reviewed - TSH pending Code(s): R07.9 - CHEST PAIN, UNSPECIFIED (5) Diabetes Current Visit: Yes Status: Chronic Assessment & Plan: - A1C > 14- 01/30/24 - Carb consistent diet - Diabetic education - Nutrition consult - Continue home insulin dosing - accuchecks ac/hs Code(s): E11.9 - TYPE 2 DIABETES MELLITUS WITHOUT COMPLICATIONS (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 Hepatic steatosis. No obvious acute intra-abdominal abnormality seen VTE: Eliquis PPI: Protonix Next of KIN: Ines Vogel [phone] Code status: Full D/C plan: 1-2 days Code(s): Q89.1 - CONGENITAL MALFORMATIONS OF ADRENAL GLAND
[2024-02-22] MEDS: MELATONIN PO PRN (23:06)
--- NOTE | 2024-02-23 05:11 | PCM.NOTE ---
Date and Time: 02/23/24 0500 Subjective Assessment: HPI: Mr. Alejandre is a 63 year-old gentleman with DM2, HTN, and a chart diagnosis of CHF admitted 02/21/24 with bilateral pulmonary embolism after experiencing a four day history of sharp, mid-chest pain associated with mild shortness of breath along with nausea and vomiting. Upon arrival to [place], he was found to be hypoxic in the setting of laboratory data that was remarkable for hyponatremia and hyperglycemia while CTA chest revealed multiple pulmonary emboli. Patient initially treated with therapeutic lovenox and now on Eliquis. He also had complaints of a sensation of food being stuck in his throat. Surgery consulted and recommending no EGD at this time. Plan for ST eval tomorrow with possible barium swallow test. Patient states dyspnea and cough have improved. On RA. Echo pending. Denies fever,, cp, abdominal pain, TRIPLETT, dizziness, N/V/D. - Review of Systems Constitutional: No Symptoms Eyes: No Symptoms Ears, Nose, & Throat: No Symptoms Respiratory: Cough, Short Of Breath Cardiac: No Symptoms Abdominal/Gastrointestinal: No Symptoms Genitourinary Symptoms: No Symptoms Musculoskeletal: Joint Pain (left ankle) Skin: No Symptoms Neurological: No Symptoms Psychological: No Symptoms Endocrine: No Symptoms Hematologic/Lymphatic: No Symptoms Immunological/Allergic: No Symptoms Objective Exam General Appearance: no apparent distress Neurologic Exam: alert, oriented x 3, cooperative Skin Exam: normal color Eye Exam: PERRL Ears, Nose, Throat Exam: normal ENT inspection Neck Exam: normal inspection Respiratory Exam: normal breath sounds, lungs clear Cardiovascular Exam: regular rate/rhythm, normal heart sounds Gastrointestinal/Abdomen Exam: soft, normal bowel sounds Extremity Exam: normal inspection Back Exam: normal inspection Male Genitalia Exam: deferred Rectal Exam: deferred Objective Data Vital Signs: Vital Signs - 24 hr Temp Pulse Resp BP Pulse Ox 02/23/24 04:00 97.6 F 78 18 166/77 97 02/22/24 23:39 97.9 F 75 18 125/76 98 02/22/24 19:27 97.9 F 89 20 134/63 94 L 02/22/24 19:14 96 02/22/24 16:00 97.6 F 72 20 147/72 99 02/22/24 11:27 97.5 F 76 18 142/70 98 02/22/24 10:43 86 L 02/22/24 07:48 97.9 F 74 18 152/69 98 Pain Assessment - Last Documented Pain Intensity 0 Pain Scale Used 0-10 Pain Scale Intake and Output: Intake & Output 02/20/24 02/21/24 02/22/24 02/23/24 11:59 11:59 11:59 11:59 Intake Total 648 3373 1475 Output Total 300 1100 2280 Balance 348 2273 -805 Weight 77.5 kg Lab Results: Lab Results-Last 24 Hours 02/22/24 02/22/24 02/22/24 Range/Units 05:30 05:30 05:30 WBC 7.0 (4.23-9.07) x10^3/uL RBC 4.76 (4.63-6.08) x10^6/uL Hgb 13.5 L (13.7-17.5) g/dL Hct 42.6 (40.1-51.0) % MCV 89.5 (79.0-92.2) fL MCH 28.4 (25.7-32.2) pg MCHC 31.7 L (32.3-36.5) g/dL RDW 13.6 (11.6-14.4) % Plt Count 178 (163-337) x10^3/uL MPV 9.4 (9.4-12.4) fL Sodium 139 (135-145) mmol/L Potassium 4.7 D (3.5-5.1) mmol/L Chloride 110 H (98-107) mmol/L Carbon Dioxide 18 L (22-30) mmol/L Anion Gap 16.2 H (5-15) MEQ/L BUN 15 (9-20) mg/dL Creatinine 0.65 L (0.66-1.25) mg/dL Estimated GFR 104.6 ML/MIN Glucose 192 H (74-106) mg/dL POC Glucometer (74 to 106) mg/dL Calcium 8.0 L (8.4-10.2) mg/dL Magnesium 2.0 (1.6-2.3) mg/dL Total Bilirubin 0.60 (0.2-1.3) mg/dL AST 42 (17-59) U/L ALT 34 (0-50) U/L Alkaline Phosphatase 85 (38-126) U/L Serum Total Protein 6.0 L (6.3-8.2) g/dL Albumin 3.1 L (3.5-5.0) g/dL 02/22/24 02/22/24 02/22/24 Range/Units 07:16 11:16 16:44 WBC (4.23-9.07) x10^3/uL RBC (4.63-6.08) x10^6/uL Hgb (13.7-17.5) g/dL Hct (40.1-51.0) % MCV (79.0-92.2) fL MCH (25.7-32.2) pg MCHC (32.3-36.5) g/dL RDW (11.6-14.4) % Plt Count (163-337) x10^3/uL MPV (9.4-12.4) fL Sodium (135-145) mmol/L Potassium (3.5-5.1) mmol/L Chloride (98-107) mmol/L Carbon Dioxide (22-30) mmol/L Anion Gap (5-15) MEQ/L BUN (9-20) mg/dL Creatinine (0.66-1.25) mg/dL Estimated GFR ML/MIN Glucose (74-106) mg/dL POC Glucometer 160 H 137 H 112 H (74 to 106) mg/dL Calcium (8.4-10.2) mg/dL Magnesium (1.6-2.3) mg/dL Total Bilirubin (0.2-1.3) mg/dL AST (17-59) U/L ALT (0-50) U/L Alkaline Phosphatase (38-126) U/L Serum Total Protein (6.3-8.2) g/dL Albumin (3.5-5.0) g/dL 02/22/24 Range/Units 20:39 WBC (4.23-9.07) x10^3/uL RBC (4.63-6.08) x10^6/uL Hgb (13.7-17.5) g/dL Hct (40.1-51.0) % MCV (79.0-92.2) fL MCH (25.7-32.2) pg MCHC (32.3-36.5) g/dL RDW (11.6-14.4) % Plt Count (163-337) x10^3/uL MPV (9.4-12.4) fL Sodium (135-145) mmol/L Potassium (3.5-5.1) mmol/L Chloride (98-107) mmol/L Carbon Dioxide (22-30) mmol/L Anion Gap (5-15) MEQ/L BUN (9-20) mg/dL Creatinine (0.66-1.25) mg/dL Estimated GFR ML/MIN Glucose (74-106) mg/dL POC Glucometer 188 H (74 to 106) mg/dL Calcium (8.4-10.2) mg/dL Magnesium (1.6-2.3) mg/dL Total Bilirubin (0.2-1.3) mg/dL AST (17-59) U/L ALT (0-50) U/L Alkaline Phosphatase (38-126) U/L Serum Total Protein (6.3-8.2) g/dL Albumin (3.5-5.0) g/dL Radiology Exams: Radiology Procedures Category Date Time Status ECHO W/2D AND DOPPLER [US] Routine Exams 02/23/24 08:00 Ordered US ABDOMEN LIMITED [ABDOMINAL-LIMITED] [US] Routine Exams 02/23/24 08:00 Ordered Assessment/Plan (1) Bilateral pulmonary embolism Current Visit: Yes Status: Acute Assessment & Plan: -CTA chest with multiple pulmonary emboli - Eliquis 10mg BID started 02/21/24 - Echo pending Code(s): I26.99 - OTHER PULMONARY EMBOLISM WITHOUT ACUTE COR PULMONALE (2) Shortness of breath at rest Current Visit: Yes Status: Acute Assessment & Plan: -2/2 to PE - On 1LNC - RA at baseline - RT order to wean o2- when appropriate - IS Code(s): R06.02 - SHORTNESS OF BREATH (3) Adrenal gland anomaly Current Visit: Yes Status: Acute Assessment & Plan: - US for further eval ordered for Friday - CT abd pelvis IMPRESSION: Simple right renal cortical cysts. Hepatic steatosis. 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 (4) Chest pain Current Visit: Yes Status: Acute Assessment & Plan: - resolved - Trop x3 negative - echo pending - TSH low, will add FT4 Code(s): R07.9 - CHEST PAIN, UNSPECIFIED (5) Difficulty swallowing solids Current Visit: Yes Status: Acute Assessment & Plan: - GS consult- NO need for EGD - Soft diet -ST eval tomorrow/ consider barium based on recommendations Code(s): R13.10 - DYSPHAGIA, UNSPECIFIED (6) Diabetes Current Visit: Yes Status: Chronic Assessment & Plan: - A1C > 14- 01/30/24 -ADA diet - Diabetic education - Nutrition consult - Continue home insulin dosing - candace /hs VTE: Eliquis PPI: Protonix Next of KIN: Ines Vogel [phone] Code status: Full D/C plan: 1-2 days Code(s): E11.9 - TYPE 2 DIABETES MELLITUS WITHOUT COMPLICATIONS
[2024-02-23 05:33] LABS: Hematocrit 39.8 % (40.1-51.0); Mean Cell Volume 87.9 fL (79.0-92.2); Mean Corpuscular Hemoglobin 28.7 pg (25.7-32.2); Mean Corpuscular Hgb Concent. 32.7 g/dL (32.3-36.5); Mean Platelet Volume 9.5 fL (9.4-12.4); Platelet Count 167 x10^3/uL (163-337); Red Blood Count 4.53 x10^6/uL (4.63-6.08); Red Cell Distribution Width 13.5 % (11.6-14.4); White Blood Count 4.9 x10^3/uL (4.23-9.07)
[2024-02-23 05:50] LABS: ALBUMIN 2.9 g/dL (3.5-5.0); ANION GAP 14.8 MEQ/L (5-15); BILIRUBIN,TOTAL 0.5 mg/dL (0.2-1.3); Calcium 7.7 mg/dL (8.4-10.2); Creatinine 1 0.61 mg/dL (0.66-1.25); EST GLOMERULAR FILTRATION RATE 106.6 ML/MIN; Potassium 4.3 mmol/L (3.5-5.1); Total Protein 5.7 g/dL (6.3-8.2)
--- NOTE | 2024-02-23 17:37 | CONS ---
HISTORY OF PRESENT ILLNESS: This is a 63-year-old male with a history of esophageal stenosis that was dilated as well as a laparoscopic appendectomy over 1 year ago, presented with shortness of breath requiring oxygen, that was new onset and he was found to have subsegmental PEs. He is being managed with p.o. Eliquis currently. He does have symptoms of dysphagia to food but not to liquids or soft pudding-like foods. He vomits when he tries to eat something big, so he does not anymore. He just sticks with liquids and softer foods and it has no problem for him. Otherwise, he feels fine. Denies abdominal pain and moves bowels well. REVIEW OF SYSTEMS: As stated in the HPI. PHYSICAL EXAMINATION: GENERAL: Alert and oriented. Comfortable in the bed. VITAL SIGNS: Stable. CARDIOVASCULAR: Regular rate and rhythm. RESPIRATORY: Mild dyspnea requiring supplemental O2. ABDOMEN: Soft, nontender, nondistended. LABORATORY DATA: Significant laboratory findings: Hyperglycemia but otherwise fairly unremarkable. Significant radiographic findings as stated. There is a subsegmental PE without evidence of heart strain. ASSESSMENT: This is a 63-year-old male with pulmonary embolism. Surgery consulted due to history of dysphagia. PLAN: The patient will likely need another EGD and dilation, but given his current acute PEs and him requiring therapeutic anticoagulation, I would not due this EGD inpatient at the time. We can follow outpatient and schedule it then in a couple of weeks to months when he is feeling improved and the PEs are improved. For now, continue soft foods and liquid supplements and avoiding thicker consistency meals. No acute surgery required.
--- NOTE | 2024-02-24 05:14 | PCM.NOTE ---
Date and Time: 02/24/24512 Subjective Assessment: HPI: Mr. Alejandre is a 63 year-old gentleman with DM2, HTN, and a chart diagnosis of CHF admitted 02/21/24 with bilateral pulmonary embolism after experiencing a four day history of sharp, mid-chest pain associated with mild shortness of breath along with nausea and vomiting. Upon arrival to [place], he was found to be hypoxic in the setting of laboratory data that was remarkable for hyponatremia and hyperglycemia while CTA chest revealed multiple pulmonary emboli. Patient initially treated with therapeutic lovenox and now on Eliquis. He also had complaints of a sensation of food being stuck in his throat. Surgery consulted and recommending no EGD at this time. Plan for ST eval tomorrow with possible barium swallow test. Patient states dyspnea and cough have improved. On RA. Echo pending. Denies fever,, cp, abdominal pain, TRIPLETT, dizziness, N/V/D. Objective Data Vital Signs: Vital Signs - 24 hr Temp Pulse Resp BP Pulse Ox 02/24/24 04:00 96.8 F 72 16 132/63 98 02/24/24 00:00 97.2 F 70 16 121/61 94 L 02/23/24 20:08 92 L 02/23/24 19:05 97.0 F 77 16 123/58 92 L 02/23/24 16:00 97.8 F 73 16 146/70 95 02/23/24 11:53 97.6 F 70 16 136/74 91 L 02/23/24 09:50 95 02/23/24 09:20 97 02/23/24 07:21 97.7 F 81 21 134/67 96 Pain Assessment - Last Documented Pain Intensity 0 Pain Scale Used 0-10 Pain Scale Intake and Output: Intake & Output 02/21/24 02/22/24 02/23/24 02/24/24 11:59 11:59 11:59 11:59 Intake Total 648 3373 1745 2415 Output Total 300 1100 2480 220 Balance 348 2273 -735 2195 Weight 77.5 kg Lab Results: Lab Results-Last 24 Hours 02/23/24 02/23/24 02/23/24 Range/Units 05:25 05:25 05:25 WBC 4.9 (4.23-9.07) x10^3/uL RBC 4.53 L (4.63-6.08) x10^6/uL Hgb 13.0 L (13.7-17.5) g/dL Hct 39.8 L (40.1-51.0) % MCV 87.9 (79.0-92.2) fL MCH 28.7 (25.7-32.2) pg MCHC 32.7 (32.3-36.5) g/dL RDW 13.5 (11.6-14.4) % Plt Count 167 (163-337) x10^3/uL MPV 9.5 (9.4-12.4) fL Sodium 136 (135-145) mmol/L Potassium 4.3 (3.5-5.1) mmol/L Chloride 106 (98-107) mmol/L Carbon Dioxide 19 L (22-30) mmol/L Anion Gap 14.8 (5-15) MEQ/L BUN 11 (9-20) mg/dL Creatinine 0.61 L (0.66-1.25) mg/dL Estimated GFR 106.6 ML/MIN Glucose 202 H (74-106) mg/dL POC Glucometer (74 to 106) mg/dL Calcium 7.7 L (8.4-10.2) mg/dL Total Bilirubin 0.50 (0.2-1.3) mg/dL AST 33 (17-59) U/L ALT 29 (0-50) U/L Alkaline Phosphatase 75 (38-126) U/L Serum Total Protein 5.7 L (6.3-8.2) g/dL Albumin 2.9 L (3.5-5.0) g/dL Free T4 (0.78-2.19) ng/dL TSH 3rd Generation 0.372 L (0.470-4.680) mIU/L 02/23/24 02/23/24 02/23/24 Range/Units 07:40 11:47 16:29 WBC (4.23-9.07) x10^3/uL RBC (4.63-6.08) x10^6/uL Hgb (13.7-17.5) g/dL Hct (40.1-51.0) % MCV (79.0-92.2) fL MCH (25.7-32.2) pg MCHC (32.3-36.5) g/dL RDW (11.6-14.4) % Plt Count (163-337) x10^3/uL MPV (9.4-12.4) fL Sodium (135-145) mmol/L Potassium (3.5-5.1) mmol/L Chloride (98-107) mmol/L Carbon Dioxide (22-30) mmol/L Anion Gap (5-15) MEQ/L BUN (9-20) mg/dL Creatinine (0.66-1.25) mg/dL Estimated GFR ML/MIN Glucose (74-106) mg/dL POC Glucometer 177 H 245 H 145 H (74 to 106) mg/dL Calcium (8.4-10.2) mg/dL Total Bilirubin (0.2-1.3) mg/dL AST (17-59) U/L ALT (0-50) U/L Alkaline Phosphatase (38-126) U/L Serum Total Protein (6.3-8.2) g/dL Albumin (3.5-5.0) g/dL Free T4 (0.78-2.19) ng/dL TSH 3rd Generation (0.470-4.680) mIU/L 02/23/24 02/23/24 Range/Units 21:56 Unknown WBC (4.23-9.07) x10^3/uL RBC (4.63-6.08) x10^6/uL Hgb (13.7-17.5) g/dL Hct (40.1-51.0) % MCV (79.0-92.2) fL MCH (25.7-32.2) pg MCHC (32.3-36.5) g/dL RDW (11.6-14.4) % Plt Count (163-337) x10^3/uL MPV (9.4-12.4) fL Sodium (135-145) mmol/L Potassium (3.5-5.1) mmol/L Chloride (98-107) mmol/L Carbon Dioxide (22-30) mmol/L Anion Gap (5-15) MEQ/L BUN (9-20) mg/dL Creatinine (0.66-1.25) mg/dL Estimated GFR ML/MIN Glucose (74-106) mg/dL POC Glucometer 174 H (74 to 106) mg/dL Calcium (8.4-10.2) mg/dL Total Bilirubin (0.2-1.3) mg/dL AST (17-59) U/L ALT (0-50) U/L Alkaline Phosphatase (38-126) U/L Serum Total Protein (6.3-8.2) g/dL Albumin (3.5-5.0) g/dL Free T4 1.00 (0.78-2.19) ng/dL TSH 3rd Generation (0.470-4.680) mIU/L Radiology Exams: Radiology Procedures Category Date Time Status ECHO W/2D AND DOPPLER [US] Routine Exams 02/23/24 08:00 Ordered US ABDOMEN LIMITED [ABDOMINAL-LIMITED] [US] Routine Exams 02/23/24 08:00 Ordered Assessment/Plan (1) Bilateral pulmonary embolism Current Visit: Yes Status: Acute Assessment & Plan: -CTA chest with multiple pulmonary emboli - Eliquis 10mg BID started 02/21/24 - Echo pending Code(s): I26.99 - OTHER PULMONARY EMBOLISM WITHOUT ACUTE COR PULMONALE (2) Shortness of breath at rest Current Visit: Yes Status: Acute Assessment & Plan: -2/2 to PE - On 1LNC - RA at baseline - RT order to wean o2- when appropriate - IS Code(s): R06.02 - SHORTNESS OF BREATH (3) Adrenal gland anomaly Current Visit: Yes Status: Acute Assessment & Plan: - US for further eval ordered for Friday - CT abd pelvis IMPRESSION: Simple right renal cortical cysts. Hepatic steatosis. 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 (4) Chest pain Current Visit: Yes Status: Acute Assessment & Plan: - resolved - Trop x3 negative - echo pending - TSH low, will add FT4 Code(s): R07.9 - CHEST PAIN, UNSPECIFIED (5) Difficulty swallowing solids Current Visit: Yes Status: Acute Assessment & Plan: - GS consult- NO need for EGD - Soft diet -ST eval tomorrow/ consider barium based on recommendations Code(s): R13.10 - DYSPHAGIA, UNSPECIFIED (6) Diabetes Current Visit: Yes Status: Chronic Assessment & Plan: - A1C > 14- 01/30/24 -ADA diet - Diabetic education - Nutrition consult - Continue home insulin dosing - candace ac/hs VTE: Eliquis PPI: Protonix Next of KIN: Ines Vogel [phone] Code status: Full D/C plan: 1-2 days Code(s): I26.99 - OTHER PULMONARY EMBOLISM WITHOUT ACUTE COR PULMONALE (2) Shortness of breath at rest Current Visit: Yes Status: Acute Code(s): R06.02 - SHORTNESS OF BREATH (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
[2024-02-24 06:21] LABS: Absolute Neutrophil Ct (ANC) 2.61 x10^3/uL (1.78-5.38); BASOPHIL % 0.4 % (0.2-1.2); Basophil (Absolute #) 0.02 x10^3/uL (0.01-0.08); Eosinophil % 2.6 % (0.8-7.0); Eosinophil (Absolute #) 0.12 x10^3/uL (0.04-0.54); Hematocrit 38.6 % (40.1-51.0); Hemoglobin 12.5 g/dL (13.7-17.5); IMMATURE GRAN # 0.02 x10^3u/L (0.001-0.031); IMMATURE GRAN % 0.4 % (0.001-0.429); Lymphocyte (Absolute #) 1.44 x10^3/uL (1.32-3.57); Lymphocytes % 31.8 % (21.8-53.1); Mean Cell Volume 87.9 fL (79.0-92.2); Mean Corpuscular Hemoglobin 28.5 pg (25.7-32.2); Mean Corpuscular Hgb Concent. 32.4 g/dL (32.3-36.5); Mean Platelet Volume 9.6 fL (9.4-12.4); Monocyte (Absolute #) 0.32 x10^3/uL (0.30-0.82); Monocytes % 7.1 % (5.3-12.2); Neutrophil % 57.7 % (34.0-67.9); Platelet Count 175 x10^3/uL (163-337); Red Blood Count 4.39 x10^6/uL (4.63-6.08); Red Cell Distribution Width 13.6 % (11.6-14.4); White Blood Count 4.5 x10^3/uL (4.23-9.07)
[2024-02-24 06:34] LABS: ANION GAP 13.2 MEQ/L (5-15); BILIRUBIN,TOTAL 0.5 mg/dL (0.2-1.3); Calcium 8.1 mg/dL (8.4-10.2); Creatinine 1 0.63 mg/dL (0.66-1.25); EST GLOMERULAR FILTRATION RATE 105.6 ML/MIN; Potassium 4.1 mmol/L (3.5-5.1); Total Protein 5.8 g/dL (6.3-8.2)
[2024-02-24 11:58] VITALS: RESP 20
--- NOTE | 2024-02-24 12:01 | PCM.DS ---
Discharge Summary Date of Admission: 02/22/24 11:23 Date of Discharge: 02/24/24 Admitting Physician: ANNE-MARIE DE LOS SANTOS MD Consults: Consults on Case 02/22/24 09:24 Consult Surgery ROUTINE 02/22/24 11:39 Nutritional Consult ROUTINE Primary Care Provider: ISIDORO HENDRICKSON DO Allergies Allergies Latex, Natural Rubber Allergy (Intermediate, Verified 02/20/24 21:22) [facility] Summary - Hospital Course Hospital Course: Mr. Alejandre is a 63 year-old gentleman with DM2, HTN, and a chart diagnosis of CHF admitted 02/21/24 with bilateral pulmonary embolism after experiencing a four day history of sharp, mid-chest pain associated with mild shortness of breath along with nausea and vomiting. Upon arrival to [facility], he was found to be hypoxic in the setting of laboratory data that was remarkable for hyponatremia and hyperglycemia while CTA chest revealed multiple pulmonary emboli. Patient initially treated with therapeutic lovenox and now on Eliquis. He also had complaints of a sensation of food being stuck in his throat. Surgery consulted and recommending no EGD at this time due to PE and anticoagulation - plan for OP treatment in the next couple of weeks. For now, continue soft foods and liquid supplements and avoiding thicker consistency meals. No acute surgery required. Patient states dyspnea and cough have improved. On RA. Echo pending. Discharge Note New Diagnosis: PE New Medications: Eliquis Follow Up: PCP Outpatient testing to order: Latest Assessment & Plan (1) Bilateral pulmonary embolism Current Visit: Yes Status: Acute Assessment & Plan: -CTA chest with multiple pulmonary emboli - Eliquis 10mg BID started 02/21/24 - sent to [facility] pharmacy - will continue 10mg BID through 02/27/24 then start 5mg bid 02/28/24 and there after - called to [employer] - starter pack- patient will need written instructions - Echo pending - f/u with pcp Code(s): I26.99 - OTHER PULMONARY EMBOLISM WITHOUT ACUTE COR PULMONALE (2) Shortness of breath at rest Current Visit: Yes Status: Acute Assessment & Plan: -2/2 to PE - On 1LNC - RA at baseline - RT order to wean o2- when appropriate - IS 02/23: -on RA, will complete walk test to determine oxygen needs Code(s): R06.02 - SHORTNESS OF BREATH (3) Adrenal gland anomaly Current Visit: Yes Status: Acute Assessment & Plan: - US for further eval ordered for Friday - CT abd pelvis IMPRESSION: Simple right renal cortical cysts. Hepatic steatosis. 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 (4) Chest pain Current Visit: Yes Status: Acute Assessment & Plan: - resolved - Trop x3 negative - echo pending - TSH low, will add FT4 02/23: -resolved Code(s): R07.9 - CHEST PAIN, UNSPECIFIED (5) Difficulty swallowing solids Current Visit: Yes Status: Acute Assessment & Plan: 02/23: -EGD to be performed as OP - Code(s): R13.10 - DYSPHAGIA, UNSPECIFIED (6) Diabetes Current Visit: Yes Status: Chronic Assessment & Plan: - A1C > 14- 01/30/24 -ADA diet - Diabetic education - Nutrition consult - Continue home insulin dosing - accuchecks ac/hs 02/24/24: -send in elsy sensor refills I spent 35 minutes [id number] with the patient on the day of discharge performing discharge exam, discussing hospital stay and discharge instructions with patient and caregivers, preparation of discharge records, prescriptions & referral forms and addressing any questions/concerns the patient had as documented above. - Vitals & Intake/Output Vital Signs: Vital Signs Temperature 97.3 F 02/24/24 07:31 Pulse Rate 71 02/24/24 07:31 Respiratory Rate 18 02/24/24 07:31 Blood Pressure 135/68 02/24/24 07:31 O2 Sat by Pulse Oximetry 95 02/24/24 07:31 Intake & Output: Intake & Output 02/21/24 02/22/24 02/23/24 02/24/24 11:59 11:59 11:59 11:59 Intake Total 648 3373 1745 2535 Output Total 300 1100 2480 220 Balance 348 4923 -926 2315 Weight 77.5 kg - Lab Result Diagrams: 02/24/24 05:45 02/24/24 05:45 Lab Results-Last 24 Hrs: Lab Results-Last 24 Hours 02/23/24 02/23/24 02/24/24 Range/Units 16:29 21:56 05:45 WBC 4.5 (4.23-9.07) x10^3/uL RBC 4.39 L (4.63-6.08) x10^6/uL Hgb 12.5 L (13.7-17.5) g/dL Hct 38.6 L (40.1-51.0) % MCV 87.9 (79.0-92.2) fL MCH 28.5 (25.7-32.2) pg MCHC 32.4 (32.3-36.5) g/dL RDW 13.6 (11.6-14.4) % Plt Count 175 (163-337) x10^3/uL MPV 9.6 (9.4-12.4) fL Gran % 57.7 (34.0-67.9) % Immature Gran % (Auto) 0.4 (0.001-0.429) % Nucleat RBC Rel Count 0.0 (0.00-0.2) % Eos # (Auto) 0.12 (0.04-0.54) x10^3/uL Immature Gran # (Auto) 0.02 (0.001-0.031) x10^3u/L Absolute Lymphs (auto) 1.44 (1.32-3.57) x10^3/uL Absolute Monos (auto) 0.32 (0.30-0.82) x10^3/uL Absolute Nucleated RBC 0.00 (0.00-0.012) x10^3u/L Lymphocytes % 31.8 (21.8-53.1) % Monocytes % 7.1 (5.3-12.2) % Eosinophils % 2.6 (0.8-7.0) % Basophils % 0.4 (0.2-1.2) % Absolute Granulocytes 2.61 (1.78-5.38) x10^3/uL Basophils # 0.02 (0.01-0.08) x10^3/uL Sodium (135-145) mmol/L Potassium (3.5-5.1) mmol/L Chloride (98-107) mmol/L Carbon Dioxide (22-30) mmol/L Anion Gap (5-15) MEQ/L BUN (9-20) mg/dL Creatinine (0.66-1.25) mg/dL Estimated GFR ML/MIN Glucose (74-106) mg/dL POC Glucometer 145 H 174 H (74 to 106) mg/dL Calcium (8.4-10.2) mg/dL Total Bilirubin (0.2-1.3) mg/dL AST (17-59) U/L ALT (0-50) U/L Alkaline Phosphatase (38-126) U/L Serum Total Protein (6.3-8.2) g/dL Albumin (3.5-5.0) g/dL 02/24/24 02/24/24 02/24/24 Range/Units 05:45 07:13 11:36 WBC (4.23-9.07) x10^3/uL RBC (4.63-6.08) x10^6/uL Hgb (13.7-17.5) g/dL Hct (40.1-51.0) % MCV (79.0-92.2) fL MCH (25.7-32.2) pg MCHC (32.3-36.5) g/dL RDW (11.6-14.4) % Plt Count (163-337) x10^3/uL MPV (9.4-12.4) fL Gran % (34.0-67.9) % Immature Gran % (Auto) (0.001-0.429) % Nucleat RBC Rel Count (0.00-0.2) % Eos # (Auto) (0.04-0.54) x10^3/uL Immature Gran # (Auto) (0.001-0.031) x10^3u/L Absolute Lymphs (auto) (1.32-3.57) x10^3/uL Absolute Monos (auto) (0.30-0.82) x10^3/uL Absolute Nucleated RBC (0.00-0.012) x10^3u/L Lymphocytes % (21.8-53.1) % Monocytes % (5.3-12.2) % Eosinophils % (0.8-7.0) % Basophils % (0.2-1.2) % Absolute Granulocytes (1.78-5.38) x10^3/uL Basophils # (0.01-0.08) x10^3/uL Sodium 137 (135-145) mmol/L Potassium 4.1 (3.5-5.1) mmol/L Chloride 106 (98-107) mmol/L Carbon Dioxide 22 (22-30) mmol/L Anion Gap 13.2 (5-15) MEQ/L BUN 12 (9-20) mg/dL Creatinine 0.63 L (0.66-1.25) mg/dL Estimated GFR 105.6 ML/MIN Glucose 169 H (74-106) mg/dL POC Glucometer 145 H 164 H (74 to 106) mg/dL Calcium 8.1 L (8.4-10.2) mg/dL Total Bilirubin 0.50 (0.2-1.3) mg/dL AST 30 (17-59) U/L ALT 30 (0-50) U/L Alkaline Phosphatase 69 (38-126) U/L Serum Total Protein 5.8 L (6.3-8.2) g/dL Albumin 3.0 L (3.5-5.0) g/dL Micro Results-Entire Visit: Microbiology 02/20/24 21:44 Urine Culture - Final Clean Catch Midstream MIXED ANGIE; 3 OR MORE TYPES. NO PREDOMINANT ORGANISM. NO FURTHER WORKUP. PLEASE RESUBMIT IF CLINICALLY INDICATED. Accuchecks Date 02/24/24 Date 02/23/24 Date 02/23/24 Time 16:33 - Radiology Exams Ordered Rad Exams-Entire Visit: Radiology Procedures Category Date Time Status ECHO W/2D AND DOPPLER [US] Routine Exams 02/24/24 08:00 Taken - Procedures and Test Procedures and Tests throughout Hospitalization: Therapy Orders & Screens 02/21/24 00:56 EKG REPEAT IN AM Comment: Respiratory Therapy Consult ONCE Comment: Reason For Exam: 02/21/24 03:17 Oxygen Nasal Cannula 3 lpm Comment: Diagnosis: bilateral PE, hyperglycemia 02/22/24 07:32 Incentive Spirometry UD Comment: Diagnosis: bilateral PE, hyperglycemia 02/22/24 07:33 RT Miscellaneous Order ROUTINE Comment: Physician Instructions: Reason For Exam: wean O2 keep sat > 92% Diagnosis: bilateral PE, hyperglycemia 02/24/24 08:00 ST Eval & Treat ( Order) .as ordered Comment: Physician Instructions: may need barium swallow Reason For Exam: difficulty swallowing Evaluate: Yes Treat: Yes Reason for Eval: difficulty swallowing Diagnosis: bilateral PE, hyperglycemia Discharge Exam General Appearance: no apparent distress Neurologic Exam: alert, oriented x 3, cooperative Eye Exam: PERRL Ears, Nose, Throat Exam: normal ENT inspection Neck Exam: normal inspection Respiratory Exam: normal breath sounds, lungs clear Cardiovascular Exam: regular rate/rhythm, normal heart sounds Gastrointestinal/Abdomen Exam: soft, normal bowel sounds Male Genitalia Exam: deferred Rectal Exam: deferred Back Exam: normal inspection Extremity Exam: normal inspection Skin Exam: normal color Final Diagnosis/Problem List - Final Discharge Diagnosis/Problem (1) Bilateral pulmonary embolism Current Visit: Yes Status: Acute Code(s): I26.99 - OTHER PULMONARY EMBOLISM WITHOUT ACUTE COR PULMONALE (2) Shortness of breath at rest Current Visit: Yes Status: Acute Code(s): R06.02 - SHORTNESS OF BREATH (3) Adrenal gland anomaly Current Visit: Yes Status: Ruled-out Code(s): Q89.1 - CONGENITAL MALFORMATIONS OF ADRENAL GLAND (4) Chest pain Current Visit: Yes Status: Resolved Code(s): R07.9 - CHEST PAIN, UNSPECIFIED (5) Difficulty swallowing solids Current Visit: Yes Status: Chronic Code(s): R13.10 - DYSPHAGIA, UNSPECIFIED (6) Diabetes Current Visit: Yes Status: Chronic Code(s): E11.9 - TYPE 2 DIABETES MELLITUS WITHOUT COMPLICATIONS - Discharge Disposition: Home, Self-Care Condition: Stable Prescriptions: New Apixaban [Eliquis 2.5 mg Tablet] See Rx Instructions .ROUTE .COMPLEX tablet Insulin Regular, Human [Humulin R] 16 unit SQ LUNCH unit Continue Pantoprazole Sodium [[id number]] 20 mg PO DAILY Pramipexole Di-HCl [Pramipexole Dihydrochloride] 0.5 mg PO HS Latanoprost/Pf [Latanoprost 0.005% Eye Drop] 1 drop OP HS Sertraline HCl 50 mg [Zoloft 50 mg Tablet] 50 mg PO DAILY Lisinopril 5 mg [Zestril 5 MG] 2.5 mg PO DAILY Empagliflozin [Jardiance] 10 mg PO DAILY Dorzolamide/Timolol/Pf [Dorzolamide-Timolol 2%-0.5%] 1 drop OP BID Insulin Regular, Human [NovoLIN R] 14 unit SQ BREAKFAST Brimonidine Tartrate 1 drop OP TID Netarsudil Mesylate [Rhopressa] 1 drop OP DAILY Discontinued Insulin Regular, Human [Novolin R] 14 units SQ DINNER Insulin Regular, Human [Novolin R] 16 units SQ LUNCH Amox Tr/Potass Clav. 500 mg [Augmentin 500-125 Tablet] 500 mg PO TID 5 Days #15 tablet Outpatient Orders: Overnight Pulse Ox Facility: [facility], Location: RESPIRATORY THERAPY Instructions: Pulmonary embolism - Discharge instructions Additional Instructions: FOLLOW INSTRUCTIONS GIVEN TO YOU BY RESPIRATORY FOR YOUR OVERNIGHT PULSE OX Eliquis 10mg BID through 02/27/24 - on 02/28/24 start 5mg po bid dosing there after Follow up with Surgery for EGD Follow up with: ISIDORO HENDRICKSON DO [Primary Care Provider] - 03/03/24 3:30 pm OSVALDO VARGAS DO [ACTIVE STAFF] - 03/04/24 9:00 am
[2024-02-24 16:20] VITALS: BP 139/78; PULSE 82; TEMP 97.9; O2SAT 98
[2024-02-24] MEDS: ELIQUIS 2.5 MG TABLET PO SCH (17:40)
[2024-02-24] MEDS ORDERED: ELIQUIS 2.5 MG TABLET ONE (17:40)
[2024-02-25] MEDS ORDERED: Diflucan 100 MG PO SCH (10:00)
== END 2024-02-24 17:43 | disposition home or self-care (01) | DRG 176 ==
LOC: ED 21:03 → MED SURG 02-21 00:54 → OBSVTOIN 02-22 11:23
PROVIDERS: ADMIT Internal Medicine Critical Care Medicine; ATTEND Internal Medicine Critical Care Medicine
DX: I26.99 Other pulmonary embolism without acute cor pulmonale (principal); R06.02 Shortness of breath; I11.0 Hypertensive heart disease with heart failure; I50.9 Heart failure, unspecified; E11.9 Type 2 diabetes mellitus without complications; Q89.1 Congenital malformations of adrenal gland; R07.9 Chest pain, unspecified; R13.10 Dysphagia, unspecified; Z79.899 Other long term (current) drug therapy
CPT/HCPCS: 0241U; 36415; 71260; 74177; 80053; 80307; 81001; 82150; 82805; 82947; 83690; 83735; 84439; 84443; 84484; 85025; 85027; 85610; 85730; 87086; 87651; 93005; 93306; 94762; 96360; 96372; 96374; 96376; 99285; 99291; J0696; J1650; J1815; J1817; J2405; Q3014; A9270-GY

== ENCOUNTER 2024-06-13 14:32 | Observation (INO) | payer MEDICARE ==
--- NOTE | 2024-06-13 15:01 | ERPHSYRPT ---
- History of Present Illness Source: patient Exam Limitations: no limitations Patient Subjective Stated Complaint: pt here for sob and nausea today, pt states no cough or fever, Triage Nursing Assessment: pt alert, arrived per ems, resp easy, lower lobes diminished. no cough, skin w/d/p abd soft, Hx Tetanus, Diphtheria Vaccination/Date Given: Yes Hx Influenza Vaccination/Date Given: Yes Hx Pneumococcal Vaccination/Date Given: Yes Immunizations Up to Date: Yes <JANET CAREY - Last Filed: 06/13/24 18:47> <SHARRON MORENO - Last Filed: 06/13/24 21:09> - History of Present Illness Physician History: Patient has been throwing up for the last 2 or 3 days. He threw up about 4 times yesterday and today. He got little bit short of breath after he threw up and that made him call the EMS. That is gone away. That lasted about 20 minutes. He is breathing easy his vital signs were good his lungs were clear. He has some epigastric discomfort but no abdominal pain. He has not had much diarrhea. Nothing makes his symptoms better or worse. He is in no distress. He says that he has noticed some dark flecks in his emesis. He is on blood thinners. (JANET CAREY) Allergies/Adverse Reactions: Latex, Natural Rubber Allergy (Intermediate, Verified 06/13/24 14:35) Rash Home Medications: Pantoprazole Sodium [[id number]] 20 mg PO DAILY 09/23/14 [History] Pramipexole Di-HCl [Pramipexole Dihydrochloride] 0.5 mg PO HS 02/02/19 [History] Latanoprost/Pf [Latanoprost 0.005% Eye Drop] 1 drop OP HS 05/30/20 [History] Sertraline HCl 50 mg [Zoloft 50 mg Tablet] 50 mg PO DAILY 01/30/21 [History] Lisinopril 5 mg [Zestril 5 MG] 2.5 mg PO DAILY 11/14/21 [History] Empagliflozin [Jardiance] 10 mg PO DAILY 03/21/22 [History] Brimonidine Tartrate 1 drop OP TID 09/06/22 [History] Dorzolamide/Timolol/Pf [Dorzolamide-Timolol 2%-0.5%] 1 drop OP BID 09/06/22 [History] Insulin Regular, Human [NovoLIN R] 14 unit SQ BREAKFAST 09/06/22 [History] Netarsudil Mesylate [Rhopressa] 1 drop OP DAILY 09/06/22 [History] Travel Risk - International Travel Have you traveled outside of the country in past 3 weeks: No - Emerging Infectious Disease Are you exhibiting symptoms associated with any current EIDs: No Symptoms: Shortness of Breath, Vomitting <JANET CAREY - Last Filed: 06/13/24 18:47> - Review of Systems Constitutional: No Symptoms Eyes: No Symptoms Ears, Nose, & Throat: No Symptoms Respiratory: Cough Cardiac: No Symptoms Abdominal/Gastrointestinal: Nausea, Vomiting Genitourinary Symptoms: No Symptoms Musculoskeletal: No Symptoms Skin: No Symptoms Neurological: No Symptoms All Other Systems: Reviewed and Negative <JANET CAREY - Last Filed: 06/13/24 18:47> - Past Medical History Pertinent Past Medical History: Yes Neurological History: No Pertinent History ENT History: Cataracts, Glaucoma Cardiac History: Congestive Heart Failure Respiratory History: No Pertinent History Endocrine Medical History: Diabetes Type II Musculoskeletal History: Osteoarthritis GI Medical History: GERD, Gallbladder Disease History: No Pertinent History Psycho-Social History: Anxiety, Depression Male Reproductive Disorders: No Pertinent History Other Medical History: OSTEOMYELITIS - Past Surgical History Past Surgical History: Yes Neuro Surgical History: No Pertinent History Cardiac: No Pertinent History Respiratory: No Pertinent History Gastrointestinal: Appendectomy, Cholecystectomy Genitourinary: No Pertinent History Musculoskeletal: Amputation Male Surgical History: No Pertinent History Other Surgical History: both feet toes amputation, colonoscopy, EGD, polyp removed Significant Family History: no pertinent family hx - Social History Smoking Status: Never smoker Exposure to second hand smoke: No Drug Use: none Patient Lives Alone: No - Social Determinants of Health Will the patient participate in the screening: Yes Do you worry about a steady place to live?: No Do you have any problems with any of the following?: No known problems In the past 12 months,have you had to go without utilities?: No Transportation Issues: No Has anyone in your support network made you feel unsafe?: No Have you or anyone in your house had to go without enough: No <CAREY,JANET S. - Last Filed: 06/13/24 18:47> - Physical Exam General Appearance: no apparent distress Eye Exam: PERRL/EOMI Ears, Nose, Throat Exam: normal ENT inspection Neck Exam: normal inspection Respiratory Exam: normal breath sounds, lungs clear, No chest tenderness, No respiratory distress Cardiovascular Exam: regular rate/rhythm, normal heart sounds Gastrointestinal/Abdomen Exam: soft, normal bowel sounds, No tenderness, No distention, No mass Extremity Exam: normal inspection Neurologic Exam: alert, oriented x 3 Skin Exam: normal color, warm SpO2: 96 <MALIKA CAREYT S. - Last Filed: 06/13/24 18:47> - Nursing Vital Signs Nursing Vital Signs: Initial Vital Signs Pulse Rate 92 H 06/13/24 14:35 Respiratory Rate 24 06/13/24 14:35 Blood Pressure 137/92 06/13/24 14:35 O2 Sat by Pulse Oximetry 95 06/13/24 14:35 Pain Scale Pain Intensity 0 Ordered Tests: Active Orders 24 hr Category Date Time Status BMP Stat Lab 06/13/24 18:55 Completed CBC W DIFF Stat Lab 06/13/24 15:15 Completed CMP Stat Lab 06/13/24 15:15 Completed LIPASE Stat Lab 06/13/24 15:15 Completed POCT GLUCOSE Stat Lab 06/13/24 17:49 Completed POCT GLUCOSE Stat Lab 06/13/24 19:39 Completed Transfer Order Routine Transfer 06/13/24 Ordered Medication Summary Discontinued Medications Generic Name Dose Route Start Last Admin Trade Name Michael PRN Reason Stop Dose Admin Sodium Chloride 1,000 mls @ 999 mls/hr 06/13/24 15:53 06/13/24 17:26 Sodium Chloride 0.9% 1000 Ml IV 06/13/24 16:53 Infused .Q1H1M STA Infusion Sodium Chloride Confirm 06/13/24 16:09 Sodium Chloride 0.9% 1000 Ml Administered 06/13/24 16:10 Dose 1,000 mls @ ud .ROUTE .STK-MED ONE Sodium Chloride 1,000 mls @ 999 mls/hr 06/13/24 17:51 06/13/24 19:26 Sodium Chloride 0.9% 1000 Ml IV 06/13/24 18:51 Infused .Q1H1M STA Infusion Sodium Chloride Confirm 06/13/24 18:21 Sodium Chloride 0.9% 1000 Ml Administered 06/13/24 18:22 Dose 1,000 mls @ ud .ROUTE .STK-MED ONE Insulin Human Regular 20 unit 06/13/24 15:53 06/13/24 16:12 Insulin Regular, Human 1 Unit IV 06/13/24 15:54 20 unit STAT ONE Administration Insulin Human Regular Confirm 06/13/24 16:09 Insulin Regular, Human 1 Unit Administered 06/13/24 16:10 Dose 20 unit .ROUTE .STK-MED ONE Insulin Human Regular 10 unit 06/13/24 17:51 06/13/24 18:24 Insulin Regular, Human 1 Unit IV 06/13/24 17:52 10 unit STAT ONE Administration Insulin Human Regular Confirm 06/13/24 18:22 Insulin Regular, Human 1 Unit Administered 06/13/24 18:23 Dose 10 unit .ROUTE .STK-MED ONE Lab/Rad Data: Laboratory Result Diagrams 06/13/24 15:15 06/13/24 18:55 Laboratory Results 06/13/24 06/13/24 06/13/24 Range/Units 19:39 18:55 17:49 WBC (4.23-9.07) x10^3/uL RBC (4.63-6.08) x10^6/uL Hgb (13.7-17.5) g/dL Hct (40.1-51.0) % MCV (79.0-92.2) fL MCH (25.7-32.2) pg MCHC (32.3-36.5) g/dL RDW (11.6-14.4) % Plt Count (163-337) x10^3/uL MPV (9.4-12.4) fL Gran % (34.0-67.9) % Immature Gran % (Auto) (0.001-0.429) % Nucleat RBC Rel Count (0.00-0.2) % Eos # (Auto) (0.04-0.54) x10^3/uL Immature Gran # (Auto) (0.001-0.031) x10^3u/L Absolute Lymphs (auto) (1.32-3.57) x10^3/uL Absolute Monos (auto) (0.30-0.82) x10^3/uL Absolute Nucleated RBC (0.00-0.012) x10^3u/L Lymphocytes % (21.8-53.1) % Monocytes % (5.3-12.2) % Eosinophils % (0.8-7.0) % Basophils % (0.2-1.2) % Absolute Granulocytes (1.78-5.38) x10^3/uL Basophils # (0.01-0.08) x10^3/uL Sodium 139 (135-145) mmol/L Potassium 3.3 L D (3.5-5.1) mmol/L Chloride 105 (98-107) mmol/L Carbon Dioxide 27 (22-30) mmol/L Anion Gap 11.3 (5-15) MEQ/L BUN 22 H (9-20) mg/dL Creatinine 0.64 L (0.66-1.25) mg/dL Estimated GFR 105.1 ML/MIN Glucose 289 H (74-106) mg/dL POC Glucometer 232 H 410 H (74 to 106) mg/dL Calcium 8.2 L (8.4-10.2) mg/dL Total Bilirubin (0.2-1.3) mg/dL AST (17-59) U/L ALT (0-50) U/L Alkaline Phosphatase (38-126) U/L Serum Total Protein (6.3-8.2) g/dL Albumin (3.5-5.0) g/dL Lipase (23-300) U/L 06/13/24 06/13/24 Range/Units 15:15 15:15 WBC 14.3 H (4.23-9.07) x10^3/uL RBC 5.24 (4.63-6.08) x10^6/uL Hgb 15.0 (13.7-17.5) g/dL Hct 45.3 (40.1-51.0) % MCV 86.5 (79.0-92.2) fL MCH 28.6 (25.7-32.2) pg MCHC 33.1 (32.3-36.5) g/dL RDW 13.2 (11.6-14.4) % Plt Count 228 (163-337) x10^3/uL MPV 9.5 (9.4-12.4) fL Gran % 88.6 H (34.0-67.9) % Immature Gran % (Auto) 0.5 H (0.001-0.429) % Nucleat RBC Rel Count 0.0 (0.00-0.2) % Eos # (Auto) 0 L (0.04-0.54) x10^3/uL Immature Gran # (Auto) 0.07 H (0.001-0.031) x10^3u/L Absolute Lymphs (auto) 0.82 L (1.32-3.57) x10^3/uL Absolute Monos (auto) 0.73 (0.30-0.82) x10^3/uL Absolute Nucleated RBC 0.00 (0.00-0.012) x10^3u/L Lymphocytes % 5.7 L (21.8-53.1) % Monocytes % 5.1 L (5.3-12.2) % Eosinophils % 0.0 L (0.8-7.0) % Basophils % 0.1 L (0.2-1.2) % Absolute Granulocytes 12.70 H (1.78-5.38) x10^3/uL Basophils # 0.02 (0.01-0.08) x10^3/uL Sodium 133 L (135-145) mmol/L Potassium 4.5 (3.5-5.1) mmol/L Chloride 95 L (98-107) mmol/L Carbon Dioxide 26 (22-30) mmol/L Anion Gap 15.7 H (5-15) MEQ/L BUN 26 H (9-20) mg/dL Creatinine 0.77 (0.66-1.25) mg/dL Estimated GFR 99.4 ML/MIN Glucose 645 H* (74-106) mg/dL POC Glucometer (74 to 106) mg/dL Calcium 9.0 (8.4-10.2) mg/dL Total Bilirubin 0.80 (0.2-1.3) mg/dL AST 32 (17-59) U/L ALT 34 (0-50) U/L Alkaline Phosphatase 117 (38-126) U/L Serum Total Protein 7.3 (6.3-8.2) g/dL Albumin 4.0 (3.5-5.0) g/dL Lipase 38 (23-300) U/L - Progress Progress: improved <JANET CAREY - Last Filed: 06/13/24 18:47> - Progress Progress Note: Patient was stable throughout stay. I believe what is happening is he had a GI virus. Almost half the people have seen today have had 1. He had symptoms of it and I believe that it elevated his blood sugars. I hydrated him and gave him some insulin. His sugars were trending in a downward direction. He was fee ling better. We does not have the sugars down to an acceptable level yet I like to see him around 250. I am going to turn the patient over to Dr. Moreno who is on-call and coming.I will discharge him with some Zofran for nausea as well 06/13/24 18:47 (JANET CAREY) Medical Desision Making - Social Determinants of Health Limited access to: transportation - Diagnostic Testing Diagnostic test were ordered, analyzed, and reviewed by me: Yes - Risk of complications Minimal Risk: Minimal risk of morbidity <JANET CAREY - Last Filed: 06/13/24 18:47> - Departure Departure Disposition: Home Critical Care Time: No <JANET CAREY - Last Filed: 06/13/24 18:47> - Departure Departure Disposition: Observation Critical Care Time: No <SHARRON MORENO - Last Filed: 06/13/24 21:09> - Departure Clinical Impression: Vomiting, Diabetes, Hyperglycemia, Type II diabetes mellitus, uncontrolled Condition: Stable Referrals: ISIDORO HENDRICKSON DO [Primary Care Provider] - Follow up/PCP as directed Instructions: Viral gastroenteritis in adults Additional Instructions: Continue to monitor your sugars and return if they are persistently above 300 or more.Take your Zofran for nausea and vomiting drink lots of clear liquids. Stay away from sugary drinks Prescriptions: Ondansetron ODT 4 MG [Zofran Odt 4 mg] 4 mg PO Q6H PRN PRN #10 tablet PRN Reason: Nausea
[2024-06-13 15:22] LABS: BASOPHIL % 0.1 % (0.2-1.2); Basophil (Absolute #) 0.02 x10^3/uL (0.01-0.08); Eosinophil (Absolute #) 0 x10^3/uL (0.04-0.54); Hematocrit 45.3 % (40.1-51.0); IMMATURE GRAN # 0.07 x10^3u/L (0.001-0.031); IMMATURE GRAN % 0.5 % (0.001-0.429); Lymphocyte (Absolute #) 0.82 x10^3/uL (1.32-3.57); Lymphocytes % 5.7 % (21.8-53.1); Mean Cell Volume 86.5 fL (79.0-92.2); Mean Corpuscular Hemoglobin 28.6 pg (25.7-32.2); Mean Corpuscular Hgb Concent. 33.1 g/dL (32.3-36.5); Mean Platelet Volume 9.5 fL (9.4-12.4); Monocyte (Absolute #) 0.73 x10^3/uL (0.30-0.82); Monocytes % 5.1 % (5.3-12.2); Neutrophil % 88.6 % (34.0-67.9); Platelet Count 228 x10^3/uL (163-337); Red Blood Count 5.24 x10^6/uL (4.63-6.08); Red Cell Distribution Width 13.2 % (11.6-14.4); White Blood Count 14.3 x10^3/uL (4.23-9.07)
[2024-06-13 15:41] LABS: ANION GAP 15.7 MEQ/L (5-15); BILIRUBIN,TOTAL 0.8 mg/dL (0.2-1.3); Creatinine 1 0.77 mg/dL (0.66-1.25); EST GLOMERULAR FILTRATION RATE 99.4 ML/MIN; Potassium 4.5 mmol/L (3.5-5.1); Total Protein 7.3 g/dL (6.3-8.2)
[2024-06-13] MEDS ORDERED: Sodium Chloride 0.9% 1000 ML 1,000 ML ONE ×2 (16:09→18:21)
[2024-06-13] MEDS ORDERED: HUMULIN R ONE ×2 (16:09→18:22)
[2024-06-13] MEDS: Sodium Chloride 0.9% 1000 ML 1,000 ML IV STA ×2 (16:12→18:24)
[2024-06-13] MEDS: HUMULIN R IV ONE ×2 (16:12→18:24)
[2024-06-13 19:15] LABS: ANION GAP 11.3 MEQ/L (5-15); Calcium 8.2 mg/dL (8.4-10.2); Creatinine 1 0.64 mg/dL (0.66-1.25); EST GLOMERULAR FILTRATION RATE 105.1 ML/MIN; Potassium 3.3 mmol/L (3.5-5.1)
[2024-06-13 22:34] LABS: INFLUENZA A NEGATIVE (NEGATIVE); INFLUENZA B NEGATIVE (NEGATIVE); RESPIRATORY SYNCTIAL VIRUS NEGATIVE (NEGATIVE); SARS-CoV-2 Xpert Express NEGATIVE (NEGATIVE)
--- NOTE | 2024-06-13 22:49 | PCM.HP ---
History of Present Illness - Chief Complaint Chief Complaint: n/v Date: 06/13/24 History of Present Illness: Mr. CAMP is a 63 year old male with a past medical history significant for hypertension, diabetes and GERD who presents to the hospital with complaints of multiple episodes of nausea, vomiting and vague abdominal pain. He denies any fever/chills. No sick contacts. No chest pain or shortness of breath. No dysuria, hematuria or urgency. She does not use any NSAIDs or exposed to contrast studies. Blood sugars are still high but trending back down. - Review of Systems Constitutional: No Fever, No Chills Eyes: No Vision Changes, No Double Vision Ears, Nose, & Throat: No Sinus Drainage, No Throat Pain Respiratory: No Cough, No Orthopnea, No Short Of Breath Cardiac: No Symptoms, Edema, Orthopnea Abdominal/Gastrointestinal: No Abdominal Pain, No Nausea, No Vomiting Genitourinary Symptoms: No Dysuria, No Frequency, No Hematuria, No Other Musculoskeletal: No Back Pain Skin: Dryness Neurological: Dizziness Psychological: Alcohol Abuse Endocrine: Polyuria Hematologic/Lymphatic: Anemia Immunological/Allergic: Eczema Medications & Allergies Home Medications: Home Medication List Pantoprazole Sodium [[id number]] 20 mg PO DAILY 09/23/14 [History Confirmed 02/20/24] Pramipexole Di-HCl [Pramipexole Dihydrochloride] 0.5 mg PO HS 02/02/19 [History Confirmed 02/20/24] Latanoprost/Pf [Latanoprost 0.005% Eye Drop] 1 drop OP HS 05/30/20 [History Con firmed 02/20/24] Sertraline HCl 50 mg [Zoloft 50 mg Tablet] 50 mg PO DAILY 01/30/21 [History Confirmed 02/20/24] Lisinopril 5 mg [Zestril 5 MG] 2.5 mg PO DAILY 11/14/21 [History Confirmed 02/20/24] Empagliflozin [Jardiance] 10 mg PO DAILY 03/21/22 [History Confirmed 02/20/24] Brimonidine Tartrate 1 drop OP TID 09/06/22 [History Confirmed 02/20/24] Dorzolamide/Timolol/Pf [Dorzolamide-Timolol 2%-0.5%] 1 drop OP BID 09/06/22 [History Confirmed 02/20/24] Insulin Regular, Human [NovoLIN R] 14 unit SQ BREAKFAST 09/06/22 [History Confirmed 02/20/24] Netarsudil Mesylate [Rhopressa] 1 drop OP DAILY 09/06/22 [History Confirmed 02/20/24] Apixaban [Eliquis 2.5 mg Tablet] See Rx Instructions .ROUTE .COMPLEX tablet 02/24/24 [Rx] Insulin Regular, Human [Humulin R] 16 unit SQ LUNCH unit 02/24/24 [Rx] Ondansetron ODT 4 MG [Zofran Odt 4 mg] 4 mg PO Q6H PRN PRN #10 tablet 06/13/24 [Rx] Allergies/Adverse Reactions: Allergies Allergy/AdvReac Type Severity Reaction Status Date / Time Latex, Natural Rubber Allergy Intermediate Rash Verified 06/13/24 14:35 - Past Medical History Past Medical History: Yes Neurological History: No Pertinent History ENT History: Cataracts, Glaucoma Cardiac History: Congestive Heart Failure Respiratory History: No Pertinent History Endocrine Medical History: Diabetes Type II Musculoskelatal History: Osteoarthritis GI Medical History: GERD, Gallbladder Disease History: No Pertinent History Pyscho-Social History: Anxiety, Depression Male Reproductive Disorders: No Pertinent History Comment: OSTEOMYELITIS - Past Surgical History Past Surgical History: Yes Neuro Surgical History: No Pertinent History Cardiac History: No Pertinent History Respiratory Surgery: No Pertinent History GI Surgical History: Appendectomy, Cholecystectomy Genitourinary Surgical Hx: No Pertinent History Musculskeletal Surgical Hx: Amputation Male Surgical History: No Pertinent History Other Surgical History: both feet toes amputation, colonoscopy, EGD, polyp removed Significant Family History: no pertinent family hx - Social History Smoking Status: Never smoker Exposure to second hand smoke: No Alcohol: Rarely Drug Use: none - Social Determinants of Health Will the patient participate in the screening: Yes Do you worry about a steady place to live?: No Do you have any problems with any of the following?: No known problems In the past 12 months,have you had to go without utilities?: No Have you or anyone in your house had to go without enough: No Transportation Issues: No Has anyone in your support network made you feel unsafe?: No Does the patient want assistance with any of the above?: No - Physical Exam Vital Signs: Vital Signs - 24 hr Temp Pulse Resp BP BP Pulse Ox 06/13/24 22:30 78 158/84 98 06/13/24 22:00 77 142/73 97 06/13/24 21:30 78 168/87 97 06/13/24 21:00 83 150/77 98 06/13/24 20:30 83 149/74 97 06/13/24 20:00 82 166/98 98 06/13/24 19:30 81 146/72 98 06/13/24 19:00 78 18 166/78 94 L 06/13/24 18:53 96 06/13/24 18:30 78 18 144/77 95 06/13/24 18:29 78 18 97 06/13/24 18:28 78 18 97 06/13/24 17:30 168/87 06/13/24 17:00 77 18 143/87 98 06/13/24 16:30 77 18 150/79 98 06/13/24 16:01 172/137 06/13/24 15:30 144/78 06/13/24 15:00 98 H 24 144/108 95 06/13/24 14:55 18 96 06/13/24 14:54 97.4 F 70 16 137/92 98 06/13/24 14:35 92 H 24 137/92 95 Results - Labs Lab/Micro Results: Lab Results-Last 24 Hours 06/13/24 06/13/24 06/13/24 Range/Units 15:15 15:15 17:49 WBC 14.3 H (4.23-9.07) x10^3/uL RBC 5.24 (4.63-6.08) x10^6/uL Hgb 15.0 (13.7-17.5) g/dL Hct 45.3 (40.1-51.0) % MCV 86.5 (79.0-92.2) fL MCH 28.6 (25.7-32.2) pg MCHC 33.1 (32.3-36.5) g/dL RDW 13.2 (11.6-14.4) % Plt Count 228 (163-337) x10^3/uL MPV 9.5 (9.4-12.4) fL Gran % 88.6 H (34.0-67.9) % Immature Gran % (Auto) 0.5 H (0.001-0.429) % Nucleat RBC Rel Count 0.0 (0.00-0.2) % Eos # (Auto) 0 L (0.04-0.54) x10^3/uL Immature Gran # (Auto) 0.07 H (0.001-0.031) x10^3u/L Absolute Lymphs (auto) 0.82 L (1.32-3.57) x10^3/uL Absolute Monos (auto) 0.73 (0.30-0.82) x10^3/uL Absolute Nucleated RBC 0.00 (0.00-0.012) x10^3u/L Lymphocytes % 5.7 L (21.8-53.1) % Monocytes % 5.1 L (5.3-12.2) % Eosinophils % 0.0 L (0.8-7.0) % Basophils % 0.1 L (0.2-1.2) % Absolute Granulocytes 12.70 H (1.78-5.38) x10^3/uL Basophils # 0.02 (0.01-0.08) x10^3/uL Sodium 133 L (135-145) mmol/L Potassium 4.5 (3.5-5.1) mmol/L Chloride 95 L (98-107) mmol/L Carbon Dioxide 26 (22-30) mmol/L Anion Gap 15.7 H (5-15) MEQ/L BUN 26 H (9-20) mg/dL Creatinine 0.77 (0.66-1.25) mg/dL Estimated GFR 99.4 ML/MIN Glucose 645 H* (74-106) mg/dL POC Glucometer 410 H (74 to 106) mg/dL Calcium 9.0 (8.4-10.2) mg/dL Total Bilirubin 0.80 (0.2-1.3) mg/dL AST 32 (17-59) U/L ALT 34 (0-50) U/L Alkaline Phosphatase 117 (38-126) U/L Serum Total Protein 7.3 (6.3-8.2) g/dL Albumin 4.0 (3.5-5.0) g/dL Lipase 38 (23-300) U/L Influenza Type A Ag (NEGATIVE) Influenza Type B Ag (NEGATIVE) RSV (PCR) (NEGATIVE) SARS-CoV-2 (PCR) (NEGATIVE) 06/13/24 06/13/24 06/13/24 Range/Units 18:55 19:39 21:10 WBC (4.23-9.07) x10^3/uL RBC (4.63-6.08) x10^6/uL Hgb (13.7-17.5) g/dL Hct (40.1-51.0) % MCV (79.0-92.2) fL MCH (25.7-32.2) pg MCHC (32.3-36.5) g/dL RDW (11.6-14.4) % Plt Count (163-337) x10^3/uL MPV (9.4-12.4) fL Gran % (34.0-67.9) % Immature Gran % (Auto) (0.001-0.429) % Nucleat RBC Rel Count (0.00-0.2) % Eos # (Auto) (0.04-0.54) x10^3/uL Immature Gran # (Auto) (0.001-0.031) x10^3u/L Absolute Lymphs (auto) (1.32-3.57) x10^3/uL Absolute Monos (auto) (0.30-0.82) x10^3/uL Absolute Nucleated RBC (0.00-0.012) x10^3u/L Lymphocytes % (21.8-53.1) % Monocytes % (5.3-12.2) % Eosinophils % (0.8-7.0) % Basophils % (0.2-1.2) % Absolute Granulocytes (1.78-5.38) x10^3/uL Basophils # (0.01-0.08) x10^3/uL Sodium 139 (135-145) mmol/L Potassium 3.3 L D (3.5-5.1) mmol/L Chloride 105 (98-107) mmol/L Carbon Dioxide 27 (22-30) mmol/L Anion Gap 11.3 (5-15) MEQ/L BUN 22 H (9-20) mg/dL Creatinine 0.64 L (0.66-1.25) mg/dL Estimated GFR 105.1 ML/MIN Glucose 289 H (74-106) mg/dL POC Glucometer 232 H (74 to 106) mg/dL Calcium 8.2 L (8.4-10.2) mg/dL Total Bilirubin (0.2-1.3) mg/dL AST (17-59) U/L ALT (0-50) U/L Alkaline Phosphatase (38-126) U/L Serum Total Protein (6.3-8.2) g/dL Albumin (3.5-5.0) g/dL Lipase (23-300) U/L Influenza Type A Ag NEGATIVE (NEGATIVE) Influenza Type B Ag NEGATIVE (NEGATIVE) RSV (PCR) NEGATIVE (NEGATIVE) SARS-CoV-2 (PCR) NEGATIVE (NEGATIVE) Accuchecks Date 06/13/24 Time 19:40 Telemedicine Encounter - Telemedicine Encounter Telemedicine Encounter: "The entirety of this encounter was performed via Telemedicine" This visit was performed using real-time audio and video connection between my location and thepatients locationwith the assistance of a surrogateat the patients location. Written or verbal consent was obtained from the patient/guardian to perform this visit usingsynchrDecalogtelemedicine technology. Any patient questions regarding the telemedicine interaction were answered.
[2024-06-14] MEDS ORDERED: HUMALOG SQ PRN (00:41)
[2024-06-14] MEDS: Sodium Chloride 0.9% 1000 ML 1,000 ML IV SCH (01:05)
[2024-06-14] MEDS: Klor Con PO ONE (01:05)
[2024-06-14] MEDS: Zofran 4 MG/2 ML VIAL IV PRN (01:11)
[2024-06-14] MEDS: TYLENOL 325 MG PO PRN (05:00)
[2024-06-14 05:03] LABS: Absolute Neutrophil Ct (ANC) 9.89 x10^3/uL (1.78-5.38); BASOPHIL % 0.1 % (0.2-1.2); Basophil (Absolute #) 0.01 x10^3/uL (0.01-0.08); Eosinophil % 0.1 % (0.8-7.0); Eosinophil (Absolute #) 0.01 x10^3/uL (0.04-0.54); Hematocrit 40.9 % (40.1-51.0); Hemoglobin 13.7 g/dL (13.7-17.5); IMMATURE GRAN # 0.07 x10^3u/L (0.001-0.031); IMMATURE GRAN % 0.6 % (0.001-0.429); Lymphocyte (Absolute #) 1.22 x10^3/uL (1.32-3.57); Lymphocytes % 10.3 % (21.8-53.1); Mean Cell Volume 86.1 fL (79.0-92.2); Mean Corpuscular Hemoglobin 28.8 pg (25.7-32.2); Mean Corpuscular Hgb Concent. 33.5 g/dL (32.3-36.5); Mean Platelet Volume 9.5 fL (9.4-12.4); Monocyte (Absolute #) 0.66 x10^3/uL (0.30-0.82); Monocytes % 5.6 % (5.3-12.2); Neutrophil % 83.3 % (34.0-67.9); Platelet Count 189 x10^3/uL (163-337); Red Blood Count 4.75 x10^6/uL (4.63-6.08); Red Cell Distribution Width 13.2 % (11.6-14.4); White Blood Count 11.9 x10^3/uL (4.23-9.07)
[2024-06-14 05:25] LABS: ALBUMIN 3.1 g/dL (3.5-5.0); ANION GAP 8.7 MEQ/L (5-15); BILIRUBIN,TOTAL 0.6 mg/dL (0.2-1.3); Calcium 7.9 mg/dL (8.4-10.2); Creatinine 1 0.6 mg/dL (0.66-1.25); EST GLOMERULAR FILTRATION RATE 107.1 ML/MIN; MAGNESIUM 1.8 mg/dL (1.6-2.3); Potassium 3.8 mmol/L (3.5-5.1)
[2024-06-14] MEDS: HUMALOG SQ PRN (08:41)
[2024-06-14] MEDS ORDERED: Compazine 10 MG/2 ML IV PRN (09:07)
[2024-06-14] MEDS: ELIQUIS 2.5 MG TABLET PO SCH (09:47)
[2024-06-14] MEDS: JARDIANCE PO SCH (09:47)
[2024-06-14] MEDS: Protonix 40MG Tablet PO SCH (09:47)
[2024-06-14] MEDS: Zestril 5 MG PO SCH (09:47)
[2024-06-14] MEDS: ZOLOFT 50 MG TABLET PO SCH (09:48)
[2024-06-14] MEDS: LEVOFLOXACIN 750MG/150ML D5W 750 MG/150 ML BAG IV SCH (09:48)
[2024-06-14] MEDS ORDERED: Alphagan P 0.15% OP SCH (10:00)
[2024-06-14] MEDS: DROPERETTE OP SCH (10:32)
[2024-06-14] MEDS: TIMOLOL OP SCH (10:32)
[2024-06-14] MEDS: [UNRECOGNIZED DRUG - OTHER] OP SCH (10:32)
[2024-06-14] MEDS: DORZOLAMIDE OP SCH (10:32)
[2024-06-14] MEDS ORDERED: MEDICATION INTERVENTION MC SCH (15:30)
--- NOTE | 2024-06-14 15:33 | PCM.NOTE ---
Date and Time: 06/14/241516 Subjective Assessment: Mr. CAMP is a 63 year old male with a past medical history significant for hypertension, chf, OA, diabetes and GERD admitted 06/14/24 with hyperglycemia, nausea, vomiting, and diarrhea. Patient reported a three day history of vomiting with some abdominal discomfort. Initial lab finding with leukocytosis, hypokalemia, and hyperglycemia with glucose level at on arrival. Patient states he is compliant with medications at home but unable to recall what he takes for his diabetes- will have to contact sister for correct medication list. Diarrheal episodes have improved with only one BM since arrival. No further vomiting but endorses some dry heaves with specks of brown - no liquid coming out. Blood glucose levels are improving. A1c level at 13.29 indicating poor control. Blood glucose levels are improving. Will refer to endocrinology on discharge. - Review of Systems Constitutional: No Symptoms Eyes: No Symptoms Ears, Nose, & Throat: No Symptoms Respiratory: No Symptoms Abdominal/Gastrointestinal: Nausea Genitourinary Symptoms: No Symptoms Musculoskeletal: No Symptoms Skin: No Symptoms Neurological: No Symptoms Psychological: No Symptoms Endocrine: No Symptoms Hematologic/Lymphatic: No Symptoms Immunological/Allergic: No Symptoms Objective Exam General Appearance: no apparent distress Neurologic Exam: alert, oriented x 3, cooperative Skin Exam: normal color Eye Exam: PERRL Ears, Nose, Throat Exam: normal ENT inspection Neck Exam: normal inspection Respiratory Exam: normal breath sounds, lungs clear Cardiovascular Exam: regular rate/rhythm, normal heart sounds Gastrointestinal/Abdomen Exam: soft, normal bowel sounds Extremity Exam: normal inspection Back Exam: normal inspection Male Genitalia Exam: deferred Rectal Exam: deferred Objective Data Vital Signs: Vital Signs - 24 hr Temp Pulse Resp BP BP Pulse Ox 06/14/24 12:00 97.2 F 81 17 164/84 95 06/14/24 07:10 97.5 F 69 16 124/61 97 06/14/24 03:41 97.8 F 81 20 141/73 99 06/13/24 23:26 98.4 F 82 22 169/77 97 06/13/24 22:30 78 158/84 98 06/13/24 22:00 77 142/73 97 06/13/24 21:30 78 168/87 97 06/13/24 21:00 83 150/77 98 06/13/24 20:30 83 149/74 97 06/13/24 20:00 82 166/98 98 06/13/24 19:30 81 146/72 98 06/13/24 19:00 78 18 166/78 94 L 06/13/24 18:53 96 06/13/24 18:30 78 18 144/77 95 06/13/24 18:29 78 18 97 06/13/24 18:28 78 18 97 06/13/24 17:30 168/87 06/13/24 17:00 77 18 143/87 98 06/13/24 16:30 77 18 150/79 98 06/13/24 16:01 172/137 06/13/24 15:30 144/78 Pain Assessment - Last Documented Pain Intensity 0 Pain Scale Used 0-10 Pain Scale Intake and Output: Intake & Output 06/12/24 06/13/24 06/14/24 06/15/24 11:59 11:59 11:59 11:59 Intake Total 111 Output Total 850 450 Balance -739 -450 Weight 68 kg Lab Results: Lab Results-Last 24 Hours 06/13/24 06/13/24 06/13/24 Range/Units 15:15 15:15 17:49 WBC 14.3 H (4.23-9.07) x10^3/uL RBC 5.24 (4.63-6.08) x10^6/uL Hgb 15.0 (13.7-17.5) g/dL Hct 45.3 (40.1-51.0) % MCV 86.5 (79.0-92.2) fL MCH 28.6 (25.7-32.2) pg MCHC 33.1 (32.3-36.5) g/dL RDW 13.2 (11.6-14.4) % Plt Count 228 (163-337) x10^3/uL MPV 9.5 (9.4-12.4) fL Gran % 88.6 H (34.0-67.9) % Immature Gran % (Auto) 0.5 H (0.001-0.429) % Nucleat RBC Rel Count 0.0 (0.00-0.2) % Eos # (Auto) 0 L (0.04-0.54) x10^3/uL Immature Gran # (Auto) 0.07 H (0.001-0.031) x10^3u/L Absolute Lymphs (auto) 0.82 L (1.32-3.57) x10^3/uL Absolute Monos (auto) 0.73 (0.30-0.82) x10^3/uL Absolute Nucleated RBC 0.00 (0.00-0.012) x10^3u/L Lymphocytes % 5.7 L (21.8-53.1) % Monocytes % 5.1 L (5.3-12.2) % Eosinophils % 0.0 L (0.8-7.0) % Basophils % 0.1 L (0.2-1.2) % Absolute Granulocytes 12.70 H (1.78-5.38) x10^3/uL Basophils # 0.02 (0.01-0.08) x10^3/uL Sodium 133 L (135-145) mmol/L Potassium 4.5 (3.5-5.1) mmol/L Chloride 95 L (98-107) mmol/L Carbon Dioxide 26 (22-30) mmol/L Anion Gap 15.7 H (5-15) MEQ/L BUN 26 H (9-20) mg/dL Creatinine 0.77 (0.66-1.25) mg/dL Estimated GFR 99.4 ML/MIN Glucose 645 H* (74-106) mg/dL POC Glucometer 410 H (74 to 106) mg/dL Hemoglobin A1c (4.5-6.0) % Calcium 9.0 (8.4-10.2) mg/dL Magnesium (1.6-2.3) mg/dL Total Bilirubin 0.80 (0.2-1.3) mg/dL AST 32 (17-59) U/L ALT 34 (0-50) U/L Alkaline Phosphatase 117 (38-126) U/L Serum Total Protein 7.3 (6.3-8.2) g/dL Albumin 4.0 (3.5-5.0) g/dL Lipase 38 (23-300) U/L Influenza Type A Ag (NEGATIVE) Influenza Type B Ag (NEGATIVE) RSV (PCR) (NEGATIVE) SARS-CoV-2 (PCR) (NEGATIVE) 06/13/24 06/13/24 06/13/24 Range/Units 18:55 19:39 21:10 WBC (4.23-9.07) x10^3/uL RBC (4.63-6.08) x10^6/uL Hgb (13.7-17.5) g/dL Hct (40.1-51.0) % MCV (79.0-92.2) fL MCH (25.7-32.2) pg MCHC (32.3-36.5) g/dL RDW (11.6-14.4) % Plt Count (163-337) x10^3/uL MPV (9.4-12.4) fL Gran % (34.0-67.9) % Immature Gran % (Auto) (0.001-0.429) % Nucleat RBC Rel Count (0.00-0.2) % Eos # (Auto) (0.04-0.54) x10^3/uL Immature Gran # (Auto) (0.001-0.031) x10^3u/L Absolute Lymphs (auto) (1.32-3.57) x10^3/uL Absolute Monos (auto) (0.30-0.82) x10^3/uL Absolute Nucleated RBC (0.00-0.012) x10^3u/L Lymphocytes % (21.8-53.1) % Monocytes % (5.3-12.2) % Eosinophils % (0.8-7.0) % Basophils % (0.2-1.2) % Absolute Granulocytes (1.78-5.38) x10^3/uL Basophils # (0.01-0.08) x10^3/uL Sodium 139 (135-145) mmol/L Potassium 3.3 L D (3.5-5.1) mmol/L Chloride 105 (98-107) mmol/L Carbon Dioxide 27 (22-30) mmol/L Anion Gap 11.3 (5-15) MEQ/L BUN 22 H (9-20) mg/dL Creatinine 0.64 L (0.66-1.25) mg/dL Estimated GFR 105.1 ML/MIN Glucose 289 H (74-106) mg/dL POC Glucometer 232 H (74 to 106) mg/dL Hemoglobin A1c (4.5-6.0) % Calcium 8.2 L (8.4-10.2) mg/dL Magnesium (1.6-2.3) mg/dL Total Bilirubin (0.2-1.3) mg/dL AST (17-59) U/L ALT (0-50) U/L Alkaline Phosphatase (38-126) U/L Serum Total Protein (6.3-8.2) g/dL Albumin (3.5-5.0) g/dL Lipase (23-300) U/L Influenza Type A Ag NEGATIVE (NEGATIVE) Influenza Type B Ag NEGATIVE (NEGATIVE) RSV (PCR) NEGATIVE (NEGATIVE) SARS-CoV-2 (PCR) NEGATIVE (NEGATIVE) 06/14/24 06/14/24 06/14/24 Range/Units 04:52 04:52 04:52 WBC 11.9 H (4.23-9.07) x10^3/uL RBC 4.75 (4.63-6.08) x10^6/uL Hgb 13.7 (13.7-17.5) g/dL Hct 40.9 (40.1-51.0) % MCV 86.1 (79.0-92.2) fL MCH 28.8 (25.7-32.2) pg MCHC 33.5 (32.3-36.5) g/dL RDW 13.2 (11.6-14.4) % Plt Count 189 (163-337) x10^3/uL MPV 9.5 (9.4-12.4) fL Gran % 83.3 H (34.0-67.9) % Immature Gran % (Auto) 0.6 H (0.001-0.429) % Nucleat RBC Rel Count 0.0 (0.00-0.2) % Eos # (Auto) 0.01 L (0.04-0.54) x10^3/uL Immature Gran # (Auto) 0.07 H (0.001-0.031) x10^3u/L Absolute Lymphs (auto) 1.22 L (1.32-3.57) x10^3/uL Absolute Monos (auto) 0.66 (0.30-0.82) x10^3/uL Absolute Nucleated RBC 0.00 (0.00-0.012) x10^3u/L Lymphocytes % 10.3 L (21.8-53.1) % Monocytes % 5.6 (5.3-12.2) % Eosinophils % 0.1 L (0.8-7.0) % Basophils % 0.1 L (0.2-1.2) % Absolute Granulocytes 9.89 H (1.78-5.38) x10^3/uL Basophils # 0.01 (0.01-0.08) x10^3/uL Sodium 136 (135-145) mmol/L Potassium 3.8 (3.5-5.1) mmol/L Chloride 102 (98-107) mmol/L Carbon Dioxide 28 (22-30) mmol/L Anion Gap 8.7 (5-15) MEQ/L BUN 18 (9-20) mg/dL Creatinine 0.60 L (0.66-1.25) mg/dL Estimated GFR 107.1 ML/MIN Glucose 303 H (74-106) mg/dL POC Glucometer (74 to 106) mg/dL Hemoglobin A1c 13.20 H (4.5-6.0) % Calcium 7.9 L (8.4-10.2) mg/dL Magnesium 1.8 (1.6-2.3) mg/dL Total Bilirubin 0.60 (0.2-1.3) mg/dL AST 24 (17-59) U/L ALT 25 (0-50) U/L Alkaline Phosphatase 89 (38-126) U/L Serum Total Protein 6.0 L (6.3-8.2) g/dL Albumin 3.1 L (3.5-5.0) g/dL Lipase (23-300) U/L Influenza Type A Ag (NEGATIVE) Influenza Type B Ag (NEGATIVE) RSV (PCR) (NEGATIVE) SARS-CoV-2 (PCR) (NEGATIVE) 06/14/24 06/14/24 Range/Units 07:17 12:05 WBC (4.23-9.07) x10^3/uL RBC (4.63-6.08) x10^6/uL Hgb (13.7-17.5) g/dL Hct (40.1-51.0) % MCV (79.0-92.2) fL MCH (25.7-32.2) pg MCHC (32.3-36.5) g/dL RDW (11.6-14.4) % Plt Count (163-337) x10^3/uL MPV (9.4-12.4) fL Gran % (34.0-67.9) % Immature Gran % (Auto) (0.001-0.429) % Nucleat RBC Rel Count (0.00-0.2) % Eos # (Auto) (0.04-0.54) x10^3/uL Immature Gran # (Auto) (0.001-0.031) x10^3u/L Absolute Lymphs (auto) (1.32-3.57) x10^3/uL Absolute Monos (auto) (0.30-0.82) x10^3/uL Absolute Nucleated RBC (0.00-0.012) x10^3u/L Lymphocytes % (21.8-53.1) % Monocytes % (5.3-12.2) % Eosinophils % (0.8-7.0) % Basophils % (0.2-1.2) % Absolute Granulocytes (1.78-5.38) x10^3/uL Basophils # (0.01-0.08) x10^3/uL Sodium (135-145) mmol/L Potassium (3.5-5.1) mmol/L Chloride (98-107) mmol/L Carbon Dioxide (22-30) mmol/L Anion Gap (5-15) MEQ/L BUN (9-20) mg/dL Creatinine (0.66-1.25) mg/dL Estimated GFR ML/MIN Glucose (74-106) mg/dL POC Glucometer 269 H 258 H (74 to 106) mg/dL Hemoglobin A1c (4.5-6.0) % Calcium (8.4-10.2) mg/dL Magnesium (1.6-2.3) mg/dL Total Bilirubin (0.2-1.3) mg/dL AST (17-59) U/L ALT (0-50) U/L Alkaline Phosphatase (38-126) U/L Serum Total Protein (6.3-8.2) g/dL Albumin (3.5-5.0) g/dL Lipase (23-300) U/L Influenza Type A Ag (NEGATIVE) Influenza Type B Ag (NEGATIVE) RSV (PCR) (NEGATIVE) SARS-CoV-2 (PCR) (NEGATIVE) Assessment/Plan (1) Hyperglycemia Current Visit: Yes Status: Acute Assessment & Plan: -Blood glucose level reviewed and at 645 on admission - improving now at 258 -SSI/ Glargine -20 units - will reach out to sister for current medication regimen -A1c at 13.20 indicating poor control Code(s): R73.9 - HYPERGLYCEMIA, UNSPECIFIED (2) UTI (urinary tract infection) Current Visit: Yes Status: Acute Assessment & Plan: -Ucult reviewed from 06/11/24 showing staph aureus - will continue abx - levaquin - recollect urine specimen - follow culture Code(s): N39.0 - URINARY TRACT INFECTION, SITE NOT SPECIFIED (3) Hypokalemia Current Visit: Yes Status: Acute Assessment & Plan: -Potassium level reviewed at 3.8 -resolved -tele Code(s): E87.6 - HYPOKALEMIA (4) Hyponatremia Current Visit: Yes Status: Acute Assessment & Plan: -in the setting of hyperglycemia -Sodium levels reviewed - now wnl at 136 -resolved Code(s): E87.1 - HYPO-OSMOLALITY AND HYPONATREMIA (5) Vomiting Current Visit: Yes Status: Acute Assessment & Plan: -resolved Code(s): R11.10 - VOMITING, UNSPECIFIED (6) Type II diabetes mellitus, uncontrolled Current Visit: Yes Status: Chronic Assessment & Plan: -see hyperglycemia (7) Diarrhea Current Visit: Yes Status: Acute Assessment & Plan: -improving - one BM today - more formed VTE: Eliquis PPI: protonix Dispo: ?tomorrow Code(s): R19.7 - DIARRHEA, UNSPECIFIED
[2024-06-14] MEDS: Alphagan P 0.15% OP SCH (17:39)
[2024-06-14] MEDS: COSOPT OPHTHALMIC 10 ML OP SCH (21:06)
[2024-06-14] MEDS: Mirapex 0.5 MG Tablet PO SCH (21:06)
[2024-06-14] MEDS: Xalatan OP SCH (21:07)
[2024-06-15 00:56] LABS: Appearance Clear (Clear); Bacteria None Seen /HPF (None Seen); Bilirubin Negative (Negative); Blood Small (Negative); Epithelial Cells None Seen /HPF (None Seen); Glucose, Urine >=1000 mg/dL (Negative); Hyaline Casts NONE SEEN /LPF (0-2); Ketones Trace (Negative); Leukocyte Esterase Negative (Negative); Nitrite Negative (Negative); Protein,Urine Dip Negative (Negative); RBC 0-2 /HPF (0-5); Specific Gravity 1.025 (1.005-1.030); Urobilinogen 0.2 mg/dL (0.2); WBC 0-2 /HPF (0-5)
[2024-06-15 05:28] LABS: Absolute Neutrophil Ct (ANC) 8.77 x10^3/uL (1.78-5.38); BASOPHIL % 0.3 % (0.2-1.2); Basophil (Absolute #) 0.03 x10^3/uL (0.01-0.08); Eosinophil % 0.2 % (0.8-7.0); Eosinophil (Absolute #) 0.02 x10^3/uL (0.04-0.54); Hematocrit 46.4 % (40.1-51.0); Hemoglobin 15.2 g/dL (13.7-17.5); IMMATURE GRAN # 0.07 x10^3u/L (0.001-0.031); IMMATURE GRAN % 0.6 % (0.001-0.429); Lymphocyte (Absolute #) 1.49 x10^3/uL (1.32-3.57); Lymphocytes % 13.6 % (21.8-53.1); Mean Cell Volume 87.1 fL (79.0-92.2); Mean Corpuscular Hemoglobin 28.5 pg (25.7-32.2); Mean Corpuscular Hgb Concent. 32.8 g/dL (32.3-36.5); Mean Platelet Volume 9.4 fL (9.4-12.4); Monocyte (Absolute #) 0.59 x10^3/uL (0.30-0.82); Monocytes % 5.4 % (5.3-12.2); Neutrophil % 79.9 % (34.0-67.9); Platelet Count 223 x10^3/uL (163-337); Red Blood Count 5.33 x10^6/uL (4.63-6.08); Red Cell Distribution Width 13.2 % (11.6-14.4)
[2024-06-15 05:45] LABS: ALBUMIN 3.6 g/dL (3.5-5.0); ANION GAP 11.8 MEQ/L (5-15); BILIRUBIN,TOTAL 0.6 mg/dL (0.2-1.3); Calcium 8.6 mg/dL (8.4-10.2); Creatinine 1 0.73 mg/dL (0.66-1.25); Potassium 4.1 mmol/L (3.5-5.1)
--- NOTE | 2024-06-15 10:47 | PCM.DS ---
Discharge Summary Date of Admission: 06/13/24 22:54 Date of Discharge: 06/15/24 Admitting Physician: RHIANNON HODGE MD Primary Care Provider: ISIDORO HENDRICKSON DO Allergies Allergies Latex, Natural Rubber Allergy (Intermediate, Verified 06/13/24 14:35) Rash Hospital Summary - Hospital Course Hospital Course: Patient reported a three day history of vomiting with some abdominal discomfort. Initial lab finding with leukocytosis, hypokalemia, and hyperglycemia with glucose level at on arrival. Patient states he is compliant with medications at home but unable to recall what he takes for his diabetes- will have to contact sister for correct medication list. Diarrheal episodes have improved. No further vomiting. Abdominal pain is improved. Blood glucose levels are improving. A1c level at 13.29 indicating poor control at home. Patient is improved and will be dismissed on 06/15/24. - Vitals & Intake/Output Vital Signs: Vital Signs Temperature 97.5 F 06/15/24 08:00 Pulse Rate 73 06/15/24 08:00 Respiratory Rate 16 06/15/24 08:00 Blood Pressure 143/73 06/15/24 08:00 O2 Sat by Pulse Oximetry 95 06/15/24 08:00 Intake & Output: Intake & Output 06/12/24 06/13/24 06/14/24 06/15/24 11:59 11:59 11:59 11:59 Intake Total 111 1827 Output Total 850 1825 Balance -739 2 Weight 68 kg - Lab Result Diagrams: 06/15/24 05:20 06/15/24 05:20 Lab Results-Last 24 Hrs: Lab Results-Last 24 Hours 06/14/24 06/14/24 06/14/24 Range/Units 12:05 15:54 21:12 WBC (4.23-9.07) x10^3/uL RBC (4.63-6.08) x10^6/uL Hgb (13.7-17.5) g/dL Hct (40.1-51.0) % MCV (79.0-92.2) fL MCH (25.7-32.2) pg MCHC (32.3-36.5) g/dL RDW (11.6-14.4) % Plt Count (163-337) x10^3/uL MPV (9.4-12.4) fL Gran % (34.0-67.9) % Immature Gran % (Auto) (0.001-0.429) % Nucleat RBC Rel Count (0.00-0.2) % Eos # (Auto) (0.04-0.54) x10^3/uL Immature Gran # (Auto) (0.001-0.031) x10^3u/L Absolute Lymphs (auto) (1.32-3.57) x10^3/uL Absolute Monos (auto) (0.30-0.82) x10^3/uL Absolute Nucleated RBC (0.00-0.012) x10^3u/L Lymphocytes % (21.8-53.1) % Monocytes % (5.3-12.2) % Eosinophils % (0.8-7.0) % Basophils % (0.2-1.2) % Absolute Granulocytes (1.78-5.38) x10^3/uL Basophils # (0.01-0.08) x10^3/uL Sodium (135-145) mmol/L Potassium (3.5-5.1) mmol/L Chloride (98-107) mmol/L Carbon Dioxide (22-30) mmol/L Anion Gap (5-15) MEQ/L BUN (9-20) mg/dL Creatinine (0.66-1.25) mg/dL Estimated GFR ML/MIN Glucose (74-106) mg/dL POC Glucometer 258 H 200 H 281 H (74 to 106) mg/dL Calcium (8.4-10.2) mg/dL Total Bilirubin (0.2-1.3) mg/dL AST (17-59) U/L ALT (0-50) U/L Alkaline Phosphatase (38-126) U/L Serum Total Protein (6.3-8.2) g/dL Albumin (3.5-5.0) g/dL Urine Color (Yellow) Urine Appearance (Clear) Urine pH (4.6-8.0) Ur Specific [place] (1.005-1.030) Urine Protein (Negative) Urine Glucose (UA) (Negative) mg/dL Urine Ketones (Negative) Urine Blood (Negative) Urine Nitrite (Negative) Urine Bilirubin (Negative) Urine Urobilinogen (0.2) mg/dL Ur Leukocyte Esterase (Negative) U Hyaline Cast (Auto) (0-2) /LPF Urine Microscopic RBC (0-5) /HPF Urine Microscopic WBC (0-5) /HPF Ur Epithelial Cells (None Seen) /HPF Urine Bacteria (None Seen) /HPF Urine Culture Reflexed (NO) 06/14/24 06/15/24 06/15/24 Range/Units 23:45 05:20 05:20 WBC 11.0 H (4.23-9.07) x10^3/uL RBC 5.33 (4.63-6.08) x10^6/uL Hgb 15.2 (13.7-17.5) g/dL Hct 46.4 (40.1-51.0) % MCV 87.1 (79.0-92.2) fL MCH 28.5 (25.7-32.2) pg MCHC 32.8 (32.3-36.5) g/dL RDW 13.2 (11.6-14.4) % Plt Count 223 (163-337) x10^3/uL MPV 9.4 (9.4-12.4) fL Gran % 79.9 H (34.0-67.9) % Immature Gran % (Auto) 0.6 H (0.001-0.429) % Nucleat RBC Rel Count 0.0 (0.00-0.2) % Eos # (Auto) 0.02 L (0.04-0.54) x10^3/uL Immature Gran # (Auto) 0.07 H (0.001-0.031) x10^3u/L Absolute Lymphs (auto) 1.49 (1.32-3.57) x10^3/uL Absolute Monos (auto) 0.59 (0.30-0.82) x10^3/uL Absolute Nucleated RBC 0.00 (0.00-0.012) x10^3u/L Lymphocytes % 13.6 L (21.8-53.1) % Monocytes % 5.4 (5.3-12.2) % Eosinophils % 0.2 L (0.8-7.0) % Basophils % 0.3 (0.2-1.2) % Absolute Granulocytes 8.77 H (1.78-5.38) x10^3/uL Basophils # 0.03 (0.01-0.08) x10^3/uL Sodium 138 (135-145) mmol/L Potassium 4.1 (3.5-5.1) mmol/L Chloride 101 (98-107) mmol/L Carbon Dioxide 29 (22-30) mmol/L Anion Gap 11.8 (5-15) MEQ/L BUN 15 (9-20) mg/dL Creatinine 0.73 (0.66-1.25) mg/dL Estimated GFR 101.0 ML/MIN Glucose 223 H (74-106) mg/dL POC Glucometer (74 to 106) mg/dL Calcium 8.6 (8.4-10.2) mg/dL Total Bilirubin 0.60 (0.2-1.3) mg/dL AST 31 (17-59) U/L ALT 28 (0-50) U/L Alkaline Phosphatase 103 (38-126) U/L Serum Total Protein 7.0 (6.3-8.2) g/dL Albumin 3.6 (3.5-5.0) g/dL Urine Color Yellow (Yellow) Urine Appearance Clear (Clear) Urine pH 6.0 (4.6-8.0) Ur Specific [place] 1.025 (1.005-1.030) Urine Protein Negative (Negative) Urine Glucose (UA) >=1000 A (Negative) mg/dL Urine Ketones Trace A (Negative) Urine Blood Small A (Negative) Urine Nitrite Negative (Negative) Urine Bilirubin Negative (Negative) Urine Urobilinogen 0.2 (0.2) mg/dL Ur Leukocyte Esterase Negative (Negative) U Hyaline Cast (Auto) NONE SEEN (0-2) /LPF Urine Microscopic RBC 0-2 (0-5) /HPF Urine Microscopic WBC 0-2 (0-5) /HPF Ur Epithelial Cells None Seen (None Seen) /HPF Urine Bacteria None Seen (None Seen) /HPF Urine Culture Reflexed NO (NO) 06/15/24 Range/Units 07:43 WBC (4.23-9.07) x10^3/uL RBC (4.63-6.08) x10^6/uL Hgb (13.7-17.5) g/dL Hct (40.1-51.0) % MCV (79.0-92.2) fL MCH (25.7-32.2) pg MCHC (32.3-36.5) g/dL RDW (11.6-14.4) % Plt Count (163-337) x10^3/uL MPV (9.4-12.4) fL Gran % (34.0-67.9) % Immature Gran % (Auto) (0.001-0.429) % Nucleat RBC Rel Count (0.00-0.2) % Eos # (Auto) (0.04-0.54) x10^3/uL Immature Gran # (Auto) (0.001-0.031) x10^3u/L Absolute Lymphs (auto) (1.32-3.57) x10^3/uL Absolute Monos (auto) (0.30-0.82) x10^3/uL Absolute Nucleated RBC (0.00-0.012) x10^3u/L Lymphocytes % (21.8-53.1) % Monocytes % (5.3-12.2) % Eosinophils % (0.8-7.0) % Basophils % (0.2-1.2) % Absolute Granulocytes (1.78-5.38) x10^3/uL Basophils # (0.01-0.08) x10^3/uL Sodium (135-145) mmol/L Potassium (3.5-5.1) mmol/L Chloride (98-107) mmol/L Carbon Dioxide (22-30) mmol/L Anion Gap (5-15) MEQ/L BUN (9-20) mg/dL Creatinine (0.66-1.25) mg/dL Estimated GFR ML/MIN Glucose (74-106) mg/dL POC Glucometer 214 H (74 to 106) mg/dL Calcium (8.4-10.2) mg/dL Total Bilirubin (0.2-1.3) mg/dL AST (17-59) U/L ALT (0-50) U/L Alkaline Phosphatase (38-126) U/L Serum Total Protein (6.3-8.2) g/dL Albumin (3.5-5.0) g/dL Urine Color (Yellow) Urine Appearance (Clear) Urine pH (4.6-8.0) Ur Specific [place] (1.005-1.030) Urine Protein (Negative) Urine Glucose (UA) (Negative) mg/dL Urine Ketones (Negative) Urine Blood (Negative) Urine Nitrite (Negative) Urine Bilirubin (Negative) Urine Urobilinogen (0.2) mg/dL Ur Leukocyte Esterase (Negative) U Hyaline Cast (Auto) (0-2) /LPF Urine Microscopic RBC (0-5) /HPF Urine Microscopic WBC (0-5) /HPF Ur Epithelial Cells (None Seen) /HPF Urine Bacteria (None Seen) /HPF Urine Culture Reflexed (NO) Micro Results-Entire Visit: Accuchecks Date 06/15/24 Date 06/14/24 Date 06/14/24 Date 06/14/24 Time 16:06 Discharge Exam General Appearance: no apparent distress Neurologic Exam: alert, oriented x 3, cooperative, normal mood/affect Eye Exam: PERRL, EOMI, eyes nml inspection Ears, Nose, Throat Exam: normal ENT inspection Neck Exam: normal inspection, non-tender, supple Respiratory Exam: normal breath sounds Cardiovascular Exam: regular rate/rhythm, normal heart sounds Gastrointestinal/Abdomen Exam: soft, normal bowel sounds Male Genitalia Exam: deferred Rectal Exam: deferred Back Exam: normal inspection Extremity Exam: normal inspection Skin Exam: normal color Final Diagnosis/Problem List - Final Discharge Diagnosis/Problem (1) Diarrhea Current Visit: Yes Status: Acute Assessment & Plan: Diarrhea improved. Patient stable for discharge Code(s): R19.7 - DIARRHEA, UNSPECIFIED (2) Type II diabetes mellitus, uncontrolled Current Visit: Yes Status: Chronic Assessment & Plan: Blood sugars improving Patient will be dismissed with insulin Recommend follow up with endocrinology. Telemedicine Encounter - Telemedicine Encounter Telemedicine Encounter: "The entirety of this encounter was performed via Telemedicine" This visit was performed using real-time audio and video connection between my location and thepatients locationwith the assistance of a surrogateat the patients location. Written or verbal consent was obtained from the patient/guardian to perform this visit using[facility] technology. Any patient questions regarding the telemedicine interaction were answered. - Discharge Disposition: Home, Self-Care Condition: Stable Prescriptions: New Blood-Glucose Meter [Accu-Chek Guide Me Glucose Mtr] 1 each [facility] #1 Blood Sugar Diagnostic [Accu-Chek Guide Test Strip] 1 each [facility] ACHS #120 strip No Action Pantoprazole Sodium [[id number]] 20 mg PO DAILY Pramipexole Di-HCl [Pramipexole Dihydrochloride] 0.5 mg PO HS Latanoprost/Pf [Latanoprost 0.005% Eye Drop] 1 drop OP HS Sertraline HCl 50 mg [Zoloft 50 mg Tablet] 50 mg PO DAILY Lisinopril 5 mg [Zestril 5 MG] 2.5 mg PO DAILY Empagliflozin [Jardiance] 10 mg PO DAILY Dorzolamide/Timolol/Pf [Dorzolamide-Timolol 2%-0.5%] 1 drop OP BID Brimonidine Tartrate 1 drop OP TID Netarsudil Mesylate [Rhopressa] 1 drop OP DAILY Cephalexin Mh 500 mg [Keflex 500 mg] 500 mg PO TID Apixaban [Eliquis 2.5 mg Tablet] 5 mg PO BID Semaglutide [Ozempic] 0.5 mg SQ WEEKLY Insulin Aspart (Niacinamide) [Fiasp 100 Unit/ml Flextouch] 13 unit SQ AC Insulin Degludec [Tresiba Flextouch U-100] 40 unit SQ DAILY Follow up with: ISIDORO HENDRICKSON DO [Primary Care Provider] -
[2024-06-15] MEDS ORDERED: NON-FORMULARY ITEM (Semaglutide [Ozempic] 0.25 MG/0.368 ML Pen.Injctr) SQ SCH (11:00)
[2024-06-15] MEDS ORDERED: MEDICATION INTERVENTION MC SCH ×2 (11:30→11:45)
[2024-06-15] MEDS: HUMALOG SQ SCH (12:09)
[2024-06-15] MEDS: Protonix 20MG Tablet PO SCH (12:09)
[2024-06-15] MEDS ORDERED: Lantus Insulin SQ SCH (15:32)
[2024-06-15 16:30] VITALS: BP 124/73; PULSE 74; RESP 20; TEMP 97.3; O2SAT 98
[2024-06-16] MEDS ORDERED: Lantus Insulin SQ SCH (10:00)
[2024-06-16] MEDS ORDERED: NON-FORMULARY ITEM (Insulin Degludec [Tresiba Flextouch U-100] 100 UNIT/ML Insuln.Pen) SQ SCH (10:00)
[2024-06-16] MEDS ORDERED: NETARSUDIL MESYLATE OP SCH (10:00)
== END 2024-06-15 16:52 | disposition home or self-care (01) ==
LOC: ED 14:32 → MED SURG 22:54
PROVIDERS: ADMIT Internal Medicine Nephrology; ATTEND Internal Medicine Nephrology
DX: R19.7 Diarrhea, unspecified (principal); E11.65 Type 2 diabetes mellitus with hyperglycemia; E87.1 Hypo-osmolality and hyponatremia; E87.6 Hypokalemia; I11.0 Hypertensive heart disease with heart failure; I50.9 Heart failure, unspecified; D72.829 Elevated white blood cell count, unspecified; N39.0 Urinary tract infection, site not specified; R11.10 Vomiting, unspecified; Z79.01 Long term (current) use of anticoagulants; Z79.899 Other long term (current) drug therapy
CPT/HCPCS: 0241U; 36415; 80048; 80053; 81001; 82947; 83036; 83690; 83735; 85025; 96360; 96374; 96376; 99284; Q3014; J1815; J1817; J1956; J2405; A9270-GY